=== PATIENT | female | born 1940 | race Caucasian/White ===

== ENCOUNTER 2018-05-31 15:17 | Inpatient (IN) ==
--- NOTE | 2018-05-31 15:47 | XRay Report ---
HISTORY: Sternal pain after a fall FINDINGS: The lungs are clear and well expanded. There is no pneumothorax, pleural effusion or widening of the mediastinum. The aorta is mildly tortuous and there are calcified plaques along the wall. The heart is normal in size and contour. No fracture is identified. However, the sternum cannot be evaluated on an AP projection, due to overlying spine and mediastinal structures. Densely calcified plaques are seen in the axillary and subclavian arteries. There has been no significant change since 09/13/16. IMPRESSION: Normal chest. Nonvisualized sternum Interpreted and Authenticated by: Alli Klein 05/31/18
--- NOTE | 2018-05-31 16:17 | Emergency Department Note ---
Fall HPI - General Chief Complaint: Fall Stated Complaint: fall, hit chest and chin Time Seen by Provider: 05/31/18 15:43 Source: patient, family Mode of arrival: wheelchair - History of Present Illness HPI Narrative: This pleasant 78-year-old female who is in the emergency room accompanied by her daughter Brianna. She reports being dizzy around 9 this morning and fell forward onto her chin, nose and chest. She remembers falling but is uncertain why she did not have her arms out in front. It was unwitnessed. She is ambiguous as to whether she lost consciousness or not. She has been dizzy for this past 1 week. Prior to this her blood pressure medications were being lowered because of also having some dizziness. Her blood pressures remain low. She continues on a water pill. She reports a blood pressure sitting this last week of 119/65. The dizzy episodes only occur when she is standing or walking. Her fall and injury today did cause her upper dentures to be split (which have already been repaired and returned to her!). REVIEW OF SYSTEMS: No chest pain that she describes due to the fall. No palpitations. Pulse at home commonly is 109. Denies cough or shortness of breath. No abdominal pain or nausea. Had some vomiting last week. She has some chronic diarrhea as a form of irritable bowel syndrome for which she takes Imodium to control. Denies dysuria Denies back pain Denies headaches. Has some generalized weakness but no specific lateralizing or extremity focused weakness. Some chronic general anxiety. Some mild depression but not under treatment or specifically a problem according to patient. Patient lives alone. - Related Data Home Medications Medication Instructions Recorded Confirmed Furosemide [Lasix] 20 mg PO DAILY 03/19/16 05/31/18 Levothyroxine [Synthroid] 100 mcg PO DAILY 03/19/16 05/31/18 Lisinopril [Zestril] 40 mg PO DAILY 03/19/16 05/31/18 Nortriptyline [Pamelor] 30 mg PO HS 03/19/16 05/31/18 Omeprazole 20 mg PO DAILY 03/19/16 05/31/18 Pravastatin [Pravachol] 20 mg PO HS 03/19/16 05/31/18 amLODIPine [Norvasc] 10 mg PO HS 03/19/16 05/31/18 Aspirin [Ecotrin] 81 mg PO QDAY 09/13/16 05/31/18 Magnesium Oxide [Magnesium] 400 mg PO QDAY 09/13/16 05/31/18 Calcium Carbonate/Vitamin D3 1 tab PO DAILY 10/07/16 05/31/18 [Calcium 600 + Vit D Tablet] Cholecalciferol (Vitamin D3) 1,000 unit PO DAILY 10/07/16 05/31/18 [Vitamin D3] Hyoscyamine Sulfate [Levsin] 0.125 mg SL Q4HP PRN 10/07/16 05/31/18 LORazepam [Ativan] 0.5 mg PO PRN PRN 10/07/16 05/31/18 [place]-3S/Dha/Epa/Fish Oil [Fish 1 each PO DAILY 10/07/16 05/31/18 Oil [place]-3 Softgel] Sodium Chloride 1 gm PO BID 12/17/16 05/31/18 Previous Rx's Medication Instructions Recorded HYDROcodone/APAP 5/325MG [[place] 1 tab PO Q4HP PRN #30 tab 12/18/16 5-325Mg] Allergies Allergy/AdvReac Type Severity Reaction Status Date / Time iodine Allergy Intermediate Swelling Verified 01/01/17 12:58 Fall PMH - Past Medical History [facility] Narrative: Medical History (Last Updated 05/31/18 @ 16:22 by Adarsh James DO) Osteoporosis (Chronic) Irritable bowel syndrome with diarrhea (Chronic) Hypertension, essential (Acute) Hypothyroidism, acquired (Acute) Anxiety, generalized (Chronic) Cigarette smoker (Chronic) Hypomagnesemia with secondary hypocalcemia (Resolved) Hyponatremia (Resolved) CHF (congestive heart failure) (Resolved) CKD (chronic kidney disease) stage 3, GFR 30-59 ml/min (Chronic) Acute and chronic cholecystitis (Resolved) Cholelithiasis with cholecystitis without obstruction (Resolved) Hip fracture (Resolved) Hypokalemia (Resolved) Polyp of gallbladder (Resolved) Past Surgical History (Last Updated 05/31/18 @ 16:16 by Adarsh James DO) History of renal stent (Chronic) History of hip replacement (Acute) History of laparoscopic cholecystectomy (Acute) History of renal stent (Acute) History of hemiarthroplasty of left hip (Resolved) Medical history: Reports: COPD, coronary artery disease, hypertension, osteoporosis, thyroid disease, other (irritable bowel). Denies: cancer, CHF (denies but is in Active problem list...), DVT, pulmonary embolus Family history: Reports: no significant family history - Social History smoking status: Current every day smoker (1/2 pk/d or less) Alcohol use: Reports: Recent Drug use: Reports: none. Denies: marijuana Physical Exam Limitations: physical limitation General appearance: alert, in no apparent distress Head: normocephalic, other (Rachel has a moderate ecchymosis and mild swelling. Bridge of the nose and beginning of the cartilaginous nose is moderately swollen with mild ecchymosis. No TMJ no tenderness of the mandible.) Eye: Present: normal appearance, EOMI. Absent: scleral icterus, conjunctival injection ENT: normal oropharynx, mucous membranes moist Neck: Present: trachea midline. Absent: lymphadenopathy, thyromegaly Respiratory: Present: other (Scattered coarseness and pop wheezes throughout lung roberts that is mild.). Absent: respiratory distress, wheezes, stridor, accessory muscle use, prolonged expiratory phase Cardiovascular: Present: regular rate, normal rhythm, tachycardia. Absent: systolic murmur, diastolic murmur Abdominal: Present: soft. Absent: distention, tenderness, guarding, rebound, rigidity, organomegaly, mass Extremities: Absent: pedal edema, pretibial edema, calf tenderness Neurological: Present: alert, oriented X3 Psychiatric: Present: normal affect, normal mood Skin: Present: warm, dry, other (Few ecchymotic changes, senile, of her arms.) Course Vital Signs Temperature 98.0 F 05/31/18 15:18 Pulse Rate 110 H 05/31/18 15:18 Respiratory Rate 20 05/31/18 15:18 Blood Pressure 142/70 05/31/18 15:18 Pulse Oximetry (%) 98 05/31/18 15:18 Temperature 98.0 F 05/31/18 15:18 Pulse Rate 118 H 05/31/18 17:45 Respiratory Rate 19 05/31/18 18:16 Blood Pressure 118/75 05/31/18 18:16 Pulse Oximetry (%) 97 05/31/18 17:45 Fall - [facility] Narrative Medical decision making narrative: 3:53 PM - syncopal episode with facial trauma to the nose and chin area. Because of it was unwitnessed and uncertain exact circumstances will be doing labs, CT of the face, CT of the neck, CT of the brain. - Lab Data Lab results reviewed: Yes I reviewed the patient's lab results. Result diagrams: 05/31/18 16:34 05/31/18 16:34 Lab Results 05/31/18 05/31/18 Range/Units 16:34 16:34 WBC 10.2 (4.5-11.0) K/mcL RBC 2.70 L (4.00-5.20) M/mcL Hgb 8.6 L (12.0-15.0) g/dL Hct 26.1 L (36.0-48.0) % MCV 96.7 (80.0-100.0) fL MCH 31.9 (26.0-34.0) pg MCHC 33.0 (31.0-36.0) g/dL RDW 12.3 (11.5-14.5) % Plt Count 217 (140-440) K/mcL MPV 9.0 (7.4-10.4) fL Gran % 90.1 H (38.0-78.0) % Lymph % (Auto) 5.8 L (15.5-49.0) % [place] % (Auto) 4.1 (1.0-12.0) % Eos % (Auto) 0 (0.0-7.0) % Baso % (Auto) 0 (0.0-2.0) % Gran # 9.2 H (1.8-8.0) K/mcL Lymph # (Auto) 0.6 L (1.5-4.8) K/mcL [place] # (Auto) 0.4 (0.1-0.9) K/mcL Eos # (Auto) 0 (0.0-0.7) K/mcL Baso # (Auto) 0 (0.0-0.3) K/mcL Sodium 128 L (133-145) mmol/L Potassium 4.6 (3.3-5.1) mmol/L Chloride 90 L (96-108) mmol/L Carbon Dioxide 24 (22-30) mmol/L Anion Gap 14.0 (8-16) BUN 46 H (8-23) mg/dl Creatinine 2.4 H (0.6-1.1) mg/dl GFR Calculation 19 Glucose 139 H (70-105) mg/dL Calcium 7.2 L (8.6-10.4) mg/dl Magnesium 0.7 L* (1.6-2.5) mg/dL Total Bilirubin 0.8 (0.0-1.0) mg/dL AST 44 H (0-37) U/l ALT 19 (0-40) U/l Alkaline Phosphatase 146 H (39-117) U/L Total Protein 6.5 (5.9-8.4) gm/dL Albumin 3.0 L (3.2-5.2) gm/dL Globulin 3.5 (2.2-3.7) gm/dL Albumin/Globulin Ratio 0.9 L (1.0-2.3) - Radiology Data Radiology results reviewed: Yes I reviewed the patient's radiology results. - EKG Data EKG results narrative: No acute coronary syndrome findings. There was mild flattening of T waves or decrease in height in the lower limb leads with a tachycardia but otherwise similar to previous. This ECG will be read by a financial systems administrator. Disposition Pt seen by MEDICAL OFFICE PROFESSIONAL INSTRUCTOR/PA only: No Clinical Impression: Syncope and collapse, Hypocalcemia, Hyponatremia Contusion of face Qualifiers: Encounter type: initial encounter Qualified Code(s): S00.83XA - Contusion of other part of head, initial encounter Acute renal failure (ARF) Qualifiers: Acute renal failure type: unspecified Qualified Code(s): N17.9 - Acute kidney failure, unspecified Contusion, chest wall Qualifiers: Encounter type: initial encounter Laterality: unspecified laterality Qualified Code(s): S20.219A - Contusion of unspecified front wall of thorax, initial encounter Summary: Patient was found to have contusions to her face from her syncopal episode and fall. It was reported that she is on blood thinners but this was not found on her report from her pharmacy and there was not any other knowledge of being on them. She has a significant change in her hemoglobin and hematocrit with her hemoglobin being down to 8.6 and normal for her being above 10.5. Her creatinine also elevated to 2.4 with normal being under 1.3. Her magnesium is 0.7 which is significantly low as well as a calcium quite low at 7.1. Because of these factors I convinced patient to finally stay for additional treatment. I spoke with Dr. Butler hospitalist, who kindly accepts her care for inpatient following and treatment. Disposition: Home, Self-Care Condition: Serious Referrals: Ricky Trevino MD [Primary Care Provider] -
--- NOTE | 2018-05-31 16:38 | Cat Scan Report ---
History: Fell with head injury TECHNIQUE: The brain was imaged without contrast at 2.5 mm intervals. Radiation exposure was limited using dose reduction technology. FINDINGS: No skull fracture is present. There is no intracranial hemorrhage or cerebral edema. There are patchy areas of decreased attenuation in the centrum semiovale within the frontal and parietal lobes bilaterally. This has progressed since the prior brain MRI done on 07/10/07. No acute infarct is detected. There is no mass effect. The ventricles are normal in size. Densely calcified plaques are present in the cavernous portions of both internal carotids and there is moderate plaque formation in the intracranial portions of both vertebral arteries. IMPRESSION: No evidence of acute head injury Mild Age-related degenerative changes which have progressed since 2007 Dr. James was called with the results Interpreted and Authenticated by: Alli Klein 05/31/18
--- NOTE | 2018-05-31 16:42 | Cat Scan Report ---
CLINICAL INFORMATION: Fell and landed on chin COMPARISON: None. TECHNIQUE: 2.5 millimeter axial slices were obtained through the facial region and 1.25 millimeter reconstructions were processed. 2.5 millimeter sagittal and axial reformations were then obtained and exam was reviewed in bone and soft tissue window/algorithm. Radiation exposure was limited using dose reduction technology. FINDINGS: No facial fracture is present. There is moderate arthritis in the right temporal mandibular joint with loss of articular cartilage resulting in joint space narrowing and there are also small anterior spurs. The left TMJ is normal. Patient is edentulous. Mild mucosal thickening is seen along the wall of the maxillary sinuses bilaterally due to mild sinusitis. There are no air-fluid levels within the sinuses. No facial hematoma is seen. 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 James was called with the results Interpreted and Authenticated by: Alli Klein 05/31/18
--- NOTE | 2018-05-31 16:46 | Cat Scan Report ---
History: Fell with neck injury TECHNIQUE: The neck was imaged without contrast from the skull base through the thoracic inlet. Sagittal and coronal reformats are created. Radiation exposure was limited using dose reduction technology. FINDINGS: There is a mild levoscoliotic curvature in the upper cervical spine. There is no fracture or destructive bone lesion. 2 mm grade 1 spondylolisthesis is present at C3-4 due to arthritis in the facets. There is severe disc space narrowing at C5-C6 and C6-7. 3 mm spondylolisthesis is seen at C7-T1. There is stenosis of the neural foramina bilaterally at several levels due to spurring of the uncinate processes and arthritis in the facet joints. The greatest narrowing is bilaterally at C3-4 and the right side at C4-5.. IMPRESSION: No fracture Moderate cervical spondylosis at multiple levels Dr. James was called with the results Interpreted and Authenticated by: Alli Klein 05/31/18
[2018-05-31 16:59] LABS: Basophils # (Auto) 0 K/mcL (0.0-0.3); Basophils % (Auto) 0 % (0.0-2.0); Eosinophils # (Auto) 0 K/mcL (0.0-0.7); Eosinophils % (Auto) 0 % (0.0-7.0); Granulocytes % (Auto) 90.1 % (38.0-78.0); Lymphocytes # (Auto) 0.6 K/mcL (1.5-4.8); Lymphocytes % (Auto) 5.8 % (15.5-49.0); Mean Cell Volume 96.7 fL (80.0-100.0); Monocytes # (Auto) 0.4 K/mcL (0.1-0.9); Monocytes % (Auto) 4.1 % (1.0-12.0); Platelet Count 217 K/mcL (140-440); Red Cell Distribution Width 12.3 % (11.5-14.5)
[2018-05-31 17:21] LABS: ALT/SGPT 19 U/l (0-40); Albumin/Globulin Ratio 0.9 (1.0-2.3); Alkaline Phosphatase 146 U/L (39-117); Blood Urea Nitrogen 46 mg/dl (8-23)
[2018-05-31] MEDS ORDERED: MAGNESIUM SULFATE 2 GM/50 ML BAG IV ONE ×3 (18:14→19:44)
[2018-05-31 19:10] LABS: Haptoglobin 123 mg/dl (30-200)
[2018-05-31 19:18] LABS: Vitamin B12 447.9 pg/ml (232-1245)
[2018-05-31] MEDS ORDERED: NALOXONE HCL 0.4 MG/ML VIAL IV PRN (19:44)
[2018-05-31] MEDS ORDERED: ACETAMINOPHEN 325 MG TABLET PO PRN (19:44)
[2018-05-31] MEDS ORDERED: HYOSCYAMINE SULFATE 0.125 MG TABLET SL PRN (19:44)
[2018-05-31] MEDS ORDERED: ONDANSETRON 4 MG/2 ML VIAL IV PRN (19:44)
[2018-05-31 19:48] LABS: Iron 102 mcg/dl (37-145); Transferrin % Saturation 83 % (15-50); Unsaturated Iron Binding < 20 mcg/dL (112-346)
[2018-05-31] MEDS: SODIUM CHLORIDE 1 GM TABLET PO SCH (20:23)
[2018-05-31 20:26] LABS: Appearance,Urine CLOUDY; Bacteria,Urine FEW /hpf (0); Bilirubin,Urine NEG (NEG); Color,Urine YELLOW; Glucose,Urine (UA) NEGATIVE (NEG); Leukocyte Esterase,Urine 500 /uL (NEG); Mucus,Urine FEW /hpf (0); Protein,Urine 100 mg/dL (NEG); Specific Gravity,Urine 1.011 (1.000-1.035); Urine Amorphous Crystals FEW /hpf (0); Urine Blood 0.03 mg/dL (<0.03); Urine Hyaline Cast 3 /lpf (0-2); Urine RBC 17 /hpf (0-1); Urine Squamous Epithelial Cell 12 /hpf (0-4); Urine WBC > 182 /hpf (0-4); Urobilinogen,Urine NEG (NEG)
[2018-05-31 20:37] LABS: Calcium,Urine Random 1.8 mg/dl
[2018-05-31 20:47] LABS: Creatinine,Urine Random 71.5 mg/dl
[2018-05-31] MEDS ORDERED: amLODIPine 10 MG TABLET PO SCH (21:00)
[2018-05-31] MEDS ORDERED: PRAVASTATIN 40 MG TABLET PO SCH (21:00)
[2018-05-31] MEDS ORDERED: HEPARIN 5,000 UNIT/ML VIAL SQ SCH (21:00)
[2018-05-31] MEDS ORDERED: NICOTINE 7 MG PATCH TOPICAL ONE (21:04)
--- NOTE | 2018-05-31 22:16 | Internal Med History&Physical ---
Medical - H&P: HPI Patient information: Note initiated : 05/31/18 at 10:14 pm Service Date, if different from initiated Date: [] Patient: Libby Candelaria a 78 y/o F admitted on 05/31/18 for fall, hit chest and chin. Chief Complaint: [] History of present illness: Ms. Candelaria is a 78 year old F who lives by herself, history of heavy alcohol use, smoker presents to the hospital for evaluation of fall. The patient notes that she has not been feeling well over the last 2 weeks, she has been getting dizzy whenever she stands up. She has seen a primary care provider for same who had cut back on her blood pressure medications. Today she stood up from sitting position and walked a few steps and then fell forward face down. She presented to the hospital for further evaluation because of this. She injured her lips a nd her dentures. The patient denies any headache loss of consciousness denies any palpitations chest pain shortness of breath nausea or belly pain vomiting or constipation. She admits to having chronic diarrhea for the last few years. The patient notes that she has not been eating and drinking well for the last few weeks notes that dizziness prevents her from doing much, she also lives by herself and does not feel like cooking for herself. The patient takes a magnesium supplement according to her. The patient has been admitted in the past with a diagnosis of hypophosphatemia hypokalemia and hypomagnesemia. On presentation to the emergency room patient was afebrile, tachycardic with heart rate 110-120, stable blood pressure maintaining oxygen saturation more than 90% on room air. Labs showed WBC count of 10.2 hemoglobin 8.6, MCV 96 platelets 217 sodium 128 potassium 4.6 bicarbonate 24 creatinine 2.4 glucose 139, calcium 7.2 albumin 3.0 magnesium 0.7. Reticulocyte count is 1.0, haptoglobin 123, iron 102, TIBC 122, ferritin 1091, iron saturation 83%, B12 level is 447, folic acid 5.3 Given patient has critically low magnesium, symptomatic orthostatic dizziness, fall, acute renal failure patient is being admitted to the hospital for further management All systems: reviewed and no additional remarkable complaints except as stated (As per HPI rest negative) Medical - H&P: PMH Medical history: Medical History (Last Updated 05/31/18 @ 16:22 by Adarsh James DO) Osteoporosis (Chronic) Irritable bowel syndrome with diarrhea (Chronic) Hypertension, essential (Acute) Hypothyroidism, acquired (Acute) Anxiety, generalized (Chronic) Cigarette smoker (Chronic) Hypomagnesemia with secondary hypocalcemia (Resolved) Hyponatremia (Resolved) CHF (congestive heart failure) (Resolved) CKD (chronic kidney disease) stage 3, GFR 30-59 ml/min (Chronic) Acute and chronic cholecystitis (Resolved) Cholelithiasis with cholecystitis without obstruction (Resolved) Hip fracture (Resolved) Hypokalemia (Resolved) Polyp of gallbladder (Resolved) Surgical history: Past Surgical History (Last Updated 05/31/18 @ 16:16 by Adarsh James DO) History of renal stent (Chronic) History of hip replacement (Acute) History of laparoscopic cholecystectomy (Acute) History of renal stent (Acute) History of hemiarthroplasty of left hip (Resolved) Family history: reviewed and not pertinent Medical - H&P: Meds Home Medications Medication Instructions Recorded Confirmed Type Furosemide [Lasix] 20 mg PO DAILY 03/19/16 05/31/18 History Levothyroxine [Synthroid] 100 mcg PO DAILY 03/19/16 05/31/18 History Lisinopril [Zestril] 40 mg PO DAILY 03/19/16 05/31/18 History Nortriptyline [Pamelor] 30 mg PO HS 03/19/16 05/31/18 History Omeprazole 20 mg PO DAILY 03/19/16 05/31/18 History Pravastatin [Pravachol] 20 mg PO HS 03/19/16 05/31/18 History amLODIPine [Norvasc] 10 mg PO HS 03/19/16 05/31/18 History Aspirin [Ecotrin] 81 mg PO QDAY 09/13/16 05/31/18 History Magnesium Oxide [Magnesium] 400 mg PO QDAY 09/13/16 05/31/18 History Calcium Carbonate/Vitamin D3 1 tab PO DAILY 10/07/16 05/31/18 History [Calcium 600 + Vit D Tablet] Cholecalciferol (Vitamin D3) 1,000 unit PO DAILY 10/07/16 05/31/18 History [Vitamin D3] Hyoscyamine Sulfate [Levsin] 0.125 mg SL Q4HP PRN 10/07/16 05/31/18 History LORazepam [Ativan] 0.5 mg PO PRN PRN 10/07/16 05/31/18 History [place]-3S/Dha/Epa/Fish Oil [Fish 1 each PO DAILY 10/07/16 05/31/18 History Oil [place]-3 Softgel] Sodium Chloride 1 gm PO BID 12/17/16 05/31/18 History HYDROcodone/APAP 5/325MG [[place] 1 tab PO Q4HP PRN #30 tab 12/18/16 05/31/18 Rx 5-325Mg] Allergies Allergy/AdvReac Type Severity Reaction Status Date / Time iodine Allergy Intermediate Swelling Verified 01/01/17 12:58 Medical - H&P: Exam - Constitutional Vitals: Temp Pulse Resp BP Pulse Ox 98.0 F 121 H 21 104/68 92 05/31/18 19:47 05/31/18 19:47 05/31/18 19:47 05/31/18 19:47 05/31/18 19:47 Exam: GENERAL: The patient is a well-developed, well-nourished in no apparent distress. Is alert and oriented x3. VITAL SIGNS: Reviewed and as noted elsewhere. HEENT: Head is normocephalic and atraumatic. Extraocular muscles are intact. Pupils are equal, round, and reactive to light. Nares appeared normal. Mouth appears any without lesions. Mucous membranes are moist. Significant lower lip laceration noted. NECK: Normal to inspection, Supple, No lymphadenopathy or thyromegaly. LUNGS: Air entry equal on both sides, no wheezing, crackles or rhonchi noted. No accessory muscles of respiration HEART: Regular tachycardic and rhythm normal, S1 and S2 heard, no Gallop, S3 or Rub Noted, No Gross murmur heard. ABDOMEN: Soft, nontender, and nondistended. Positive bowel sounds. No hepatosplenomegaly was noted. EXTREMITIES: No cyanosis, clubbing, rash, lesions or edema. NEUROLOGIC: Cranial nerves II through XII are grossly intact. Motor and Sensory System Grossly Intact PSYCHIATRIC: Normal affect, Normal Mood. Appropriate Behavior. SKIN: decub ulcer on back. No jaundice, No rash noted. Medical - H&P: Reslt - Labs CBC & Chem 7: 05/31/18 16:34 05/31/18 16:34 Labs: Short CBC 05/31/18 Range/Units 16:34 WBC 10.2 (4.5-11.0) K/mcL Hgb 8.6 L (12.0-15.0) g/dL Hct 26.1 L (36.0-48.0) % Plt Count 217 (140-440) K/mcL BMP 05/31/18 16:34 Sodium 128 L Potassium 4.6 Chloride 90 L Carbon Dioxide 24 BUN 46 H Creatinine 2.4 H Glucose 139 H Calcium 7.2 L Liver Function 05/31/18 Range/Units 16:34 Total Bilirubin 0.8 (0.0-1.0) mg/dL AST 44 H (0-37) U/l ALT 19 (0-40) U/l Alkaline Phosphatase 146 H (39-117) U/L Albumin 3.0 L (3.2-5.2) gm/dL Urine 05/31/18 Range/Units 19:55 Urine Color Yellow Urine Appearance Cloudy Urine pH 8.0 (5.0-9.0) Ur Specific [place] 1.011 (1.000-1.035) Urine Protein 100 A (NEG) mg/dL Urine Glucose (UA) Negative (NEG) mg/dL Medical - H&P: A/P - Narrative A/P Narrative: A/P Severe Hypomagnesemia Orthostatic Dizziness Acute renal failure tobacco abuse malnutrition Anemia Hyponatremia tachycardia Chr Diarrhea/ IBS CKD Hypertension Hypothyroidism Plan Admit to [facility] status IV magnesium and oral mag replacement (patient's hypomagnesemia seems multifac torial, chronic diarrhea decreased oral intake as well as alcohol abuse contributing) monitor levels, will need a long time to replenish levels IV fluids for renal dysfunction given tachycardia, and borderline low oxyen sats, check d dmier, if elevated use therapeutic dose of anticoagulation till we can safely r/o PE Check TSH hold bp meds resume other home meds Educated at length need from etoh cessation, Anemia workup shows elevated ferritin and iron saturation, due to alcohol use? Check fecal occult blood studies. Start replacement with B12 and folic acid for now. Elevated ferritin, iron sat likely from etoh. DVT hep sq Social History - Tobacco smoking status: Current every day smoker (1/2 pk/d or less) - Alcohol alcohol intake frequency: 2+ drinks per day
[2018-05-31] MEDS: 0.9 % SODIUM CHLORIDE 1,000 ML IV SCH (22:54)
[2018-05-31] MEDS: NORTRIPTYLINE 10 MG CAPSULE PO SCH (22:54)
[2018-05-31] MEDS: FOLIC ACID/VITAMIN B COMP W-C 1 TAB TABLET PO SCH (22:55)
[2018-05-31] MEDS: THIAMINE 100 MG TABLET PO SCH (22:55)
[2018-05-31] MEDS: 0.9 % SODIUM CHLORIDE 10 ML SYRINGE IV SCH (22:55)
[2018-05-31] MEDS: SIMVASTATIN 10 MG TABLET PO SCH (22:55)
[2018-05-31] MEDS: HYDROcodone/APAP 5/325MG TABLET PO PRN (23:29)
[2018-06-01] MEDS: 0.9 % SODIUM CHLORIDE 1,000 ML IV SCH ×5 (05:30→22:45)
[2018-06-01] MEDS: 0.9 % SODIUM CHLORIDE 10 ML SYRINGE IV SCH ×3 (05:40→21:00)
[2018-06-01 06:37] LABS: Basophils # (Auto) 0 K/mcL (0.0-0.3); Basophils % (Auto) 0.2 % (0.0-2.0); Eosinophils # (Auto) 0 K/mcL (0.0-0.7); Eosinophils % (Auto) 0 % (0.0-7.0); Granulocytes % (Auto) 81.8 % (38.0-78.0); Lymphocytes # (Auto) 1.1 K/mcL (1.5-4.8); Lymphocytes % (Auto) 12.1 % (15.5-49.0); Mean Cell Volume 97.3 fL (80.0-100.0); Mean Corpuscular HGB Conc 32.7 g/dL (31.0-36.0); Monocytes # (Auto) 0.6 K/mcL (0.1-0.9); Monocytes % (Auto) 5.9 % (1.0-12.0); Platelet Count 181 K/mcL (140-440); RBC 2.28 M/mcL (4.00-5.20); Red Cell Distribution Width 12.3 % (11.5-14.5)
[2018-06-01 07:05] LABS: ALT/SGPT 15 U/l (0-40); Albumin 2.5 gm/dL (3.2-5.2); Albumin/Globulin Ratio 0.9 (1.0-2.3); Alkaline Phosphatase 121 U/L (39-117); Bilirubin,Direct 0.3 mg/dL (0.0-0.3); Blood Urea Nitrogen 47 mg/dl (8-23); Gamma Glutamyl Transpeptidase 72 U/L (5-36); Uric Acid 6.9 mg/dL (2.5-8.0)
[2018-06-01] MEDS ORDERED: MAGNESIUM SULFATE 2 GM/50 ML BAG IV ONE (07:36)
[2018-06-01] MEDS: MAGNESIUM OXIDE 400 MG TABLET PO SCH ×2 (07:46→16:45)
[2018-06-01] MEDS: LEVOTHYROXINE 100 MCG TABLET PO SCH (07:46)
[2018-06-01 08:22] LABS: Free T4 (Free Thyroxine) 1.15 ng/dl (0.7-1.7)
[2018-06-01] MEDS: ASPIRIN 81 MG TAB.CHEW PO SCH (08:23)
[2018-06-01] MEDS: SODIUM CHLORIDE 1 GM TABLET PO SCH ×2 (08:23→21:00)
[2018-06-01] MEDS: VITAMIN D3 1,000 UNIT TABLET PO SCH (08:24)
[2018-06-01] MEDS ORDERED: FISH OIL 1,000 MG CAPSULE PO SCH (09:00)
[2018-06-01] MEDS ORDERED: CALCIUM W/VIT D3 500 MG TABLET PO SCH (09:00)
[2018-06-01] MEDS ORDERED: ENOXAPARIN 100 MG/ML SYRINGE SQ SCH (09:00)
[2018-06-01] MEDS ORDERED: 0.9 % SODIUM CHLORIDE 1,000 ML IV ONE (09:28)
[2018-06-01] MEDS: NICOTINE 7 MG PATCH TOPICAL SCH (09:52)
[2018-06-01] MEDS: FISH OIL 1,000 MG CAPSULE PO SCH (09:52)
[2018-06-01] MEDS: CALCIUM W/VIT D3 500 MG TABLET PO SCH (09:52)
[2018-06-01] MEDS ORDERED: PNEUMOCOCCAL 23-VAL P-SAC VAC 0.5 ML SYRINGE IM ONE (10:00)
--- NOTE | 2018-06-01 10:05 | Nephrology Consult Note ---
History of Present Illness - Reason for Consult Patient information: Note initiated : 06/01/18 at 10:03 am Libby Candelaria is a 78-year-old female admitted on 05/31/18 after a fall at home. Consult date: 06/01/18 acute renal failure, chronic renal failure, hyponatremia Requesting physician: Pricila Butler - Chief Complaint Weakness - History of Present Illness Libby Candelaria is a 78-year-old female with hypertension, hyperlipidemia, hypothyroidism, chronic kidney disease stage 3, left renal artery stenosis s/p stent, chronic hyponatremia, admitted on 05/31/18 after a fall at home. She has been dizzy for several days. She has been on Sodium chloride 1 gram twice daily, Furosemide 20 mg daily and Lisinopril 40 mg daily and Amlodipine 10 mg daily at home. Review of Systems Constitutional: lethargy, weakness Nose, mouth and throat: no nasal congestion, no sore throat Cardiovascular: no chest pain, no palpatations Respiratory: no cough, no wheezing Gastrointestinal: no abdominal pain, no diarrhea, no nausea Genitourinary: no dysuria, no hematuria Musculoskeletal: no joint swelling, no neck pain Integumentary: no rash, no wounds Neurological: no confusion, no focal weakness Psychiatric: no anxiety, no panic attacks Endocrine: no cold intolerance, no heat intolerance Hematologic/Lymphatic: no easy bleeding, no easy bruising Allergic/Immunologic: no tongue swelling, no uticaria Past History Past medical history: Medical History (Last Updated 05/31/18 @ 16:22 by Adarhs James DO) Osteoporosis (Chronic) Irritable bowel syndrome with diarrhea (Chronic) Hypertension, essential (Acute) Hypothyroidism, acquired (Acute) Anxiety, generalized (Chronic) Cigarette smoker (Chronic) Hypomagnesemia with secondary hypocalcemia (Resolved) Hyponatremia (Resolved) CHF (congestive heart failure) (Resolved) CKD (chronic kidney disease) stage 3, GFR 30-59 ml/min (Chronic) Acute and chronic cholecystitis (Resolved) Cholelithiasis with cholecystitis without obstruction (Resolved) Hip fracture (Resolved) Hypokalemia (Resolved) Polyp of gallbladder (Resolved) Past surgical history: Past Surgical History (Last Updated 05/31/18 @ 16:16 by Adarsh James DO) History of renal stent (Chronic) History of hip replacement (Acute) History of laparoscopic cholecystectomy (Acute) History of renal stent (Acute) History of hemiarthroplasty of left hip (Resolved) Past family history: No history of kidney disease in family members. Past social history: She lives alone but has a life alert necklace. She is a full code at designated either her son, Mike Garay, or her daughter, Brianna Tesfaye, as her surrogate medical decision makers. She normally walks with a walker. She has a [id number] smoking history and continues to smoke several cigarettes a day. She drinks least 2 shots of vodka nightly. She denies recreational drug use. Medications and Allergies Home Medications Medication Instructions Recorded Confirmed Type Furosemide [Lasix] 20 mg PO DAILY 03/19/16 05/31/18 History Levothyroxine [Synthroid] 100 mcg PO DAILY 03/19/16 05/31/18 History Lisinopril [Zestril] 40 mg PO DAILY 03/19/16 05/31/18 History Nortriptyline [Pamelor] 30 mg PO HS 03/19/16 05/31/18 History Omeprazole 20 mg PO DAILY 03/19/16 05/31/18 History Pravastatin [Pravachol] 20 mg PO HS 03/19/16 05/31/18 History amLODIPine [Norvasc] 10 mg PO HS 03/19/16 05/31/18 History Aspirin [Ecotrin] 81 mg PO QDAY 09/13/16 05/31/18 History Magnesium Oxide [Magnesium] 400 mg PO QDAY 09/13/16 05/31/18 History Calcium Carbonate/Vitamin D3 1 tab PO DAILY 10/07/16 05/31/18 History [Calcium 600 + Vit D Tablet] Cholecalciferol (Vitamin D3) 1,000 unit PO DAILY 10/07/16 05/31/18 History [Vitamin D3] Hyoscyamine Sulfate [Levsin] 0.125 mg SL Q4HP PRN 10/07/16 05/31/18 History LORazepam [Ativan] 0.5 mg PO PRN PRN 10/07/16 05/31/18 History [place]-3S/Dha/Epa/Fish Oil [Fish 1 each PO DAILY 10/07/16 05/31/18 History Oil [place]-3 Softgel] Sodium Chloride 1 gm PO BID 12/17/16 05/31/18 History HYDROcodone/APAP 5/325MG [[place] 1 tab PO Q4HP PRN #30 tab 12/18/16 05/31/18 Rx 5-325Mg] Allergies Allergy/AdvReac Type Severity Reaction Status Date / Time iodine Allergy Intermediate Swelling Verified 01/01/17 12:58 Exam - Vital Signs Vital signs: Temp Pulse Resp BP Pulse Ox 99.1 F H 104 H 20 92/57 98 06/01/18 08:00 06/01/18 08:00 06/01/18 08:00 06/01/18 08:00 06/01/18 08:00 - General Appearance General appearance: appears started age, fatigue EENT: mucous membranes dry Neck: supple Respiratory: clear Cardiology: no edema Gastrointestinal: no tenderness Integumentary: no rash Neurologic: no focal deficit, alert and oriented x3 Musculoskeletal: no deformities Psychiatric: mood/affect appropriate, cooperative Results - Lab Results 06/01/18 04:30 06/01/18 04:30 Most recent lab results Calcium 7.2 mg/dl (8.6-10.4) L 06/01/18 04:30 Phosphorus 3.8 mg/dL (2.7-4.5) 06/01/18 04:30 Magnesium 1.4 mg/dL (1.6-2.5) L 06/01/18 04:30 Assessment and Plan (1) Acute on chronic renal failure Libby Candelaria is a 78-year-old female with hypertension, hyperlipidemia, hypothyroidism, chronic kidney disease stage 3, left renal artery stenosis s/p stent, chronic hyponatremia, admitted on 05/31/18 after a fall at home. She has been dizzy for several days. She has been on Sodium chloride 1 gram twice daily, Furosemide 20 mg daily and Lisinopril 40 mg daily and Amlodipine 10 mg daily at home. Acute kidney injury on chronic kidney disease stage 3 with hyponatremia and hypomagnesemia, present on arrival. She has been on Sodium chloride 1 gram twice daily, Furosemide 20 mg daily and Lisinopril 40 mg daily and Amlodipine 10 mg daily at home. Most likely etiology is progressive dehydration which may lead to acute tubular necrosis. There is no recent history of IV contrast administration or NSAID use. Work up: Urinalysis on 05/31/18: Yellow, Cloudy, pH 8.0, SG 1.011, protein 100, occult blood 0.03, leukocyte esterase 500. US Renal on 06/01/18: Multiple cysts in both kidneys which remain stable. Markedly diminished urine output from both kidneys. This may be due to acute kidney injury. Trace amount of free fluid adjacent to the capsule in both kidneys which is nonspecific but might be related to the recent injury. Progress: Urine output: 200 ml reported in the past 12 hours. Creatinine decreased from 2.4 to 2.3 in the past 12 hours. Hyponatremia. Hypomagnesemia. Plan: No acute hemodialysis need. Avoid NSAIDs, nephrotoxic medications and IV contrast. Monitor BMP and urine output. Status: Acute Priority: High Qualifiers: Acute renal failure type: with acute tubular necrosis Chronic kidney disease stage: stage 3 (moderate) Qualified Code(s): N17.0 - Acute kidney failure with tubular necrosis; N18.3 - Chronic kidney disease, stage 3 (moderate) (2) Hyponatremia Please see above Status: Chronic Priority: Medium (3) Hypomagnesemia Please see above Status: Acute Priority: Medium
--- NOTE | 2018-06-01 10:27 | Ultrasound Report ---
History: Fell one day ago, acute kidney injury, unable to void since the fall and follow-up renal cysts FINDINGS: The right kidney measures 4.6 x 4.8 x 10.4 cm and the left measures 4.7 x 5.1 x 7.9 cm. There are multiple cysts in both kidneys. The largest is located superiorly in the left kidney and measures 2.7 x 2.9 cm. The largest cyst in the right kidney is located inferiorly and laterally and measures 1.7 x 1.9 cm. The cysts have not changed since prior ultrasound done on 09/16/16. No solid mass is developed in either kidney. There is no evidence of a calculus or hydronephrosis. No laceration of the kidney is present following recent injury. There is a trace amount of fluid adjacent to the capsule of both kidneys. Similar finding is seen around the right kidney and the prior ultrasound. Doppler showed no flow of urine through either ureter into the bladder during the time of the examination. The bladder is partially distended but has trabeculated wall. It contains 243 cc of urine. The wall is 1.9 mm in thickness. No mass or hematoma are seen within the bladder. No free fluid is present deep in the pelvis. IMPRESSION: Multiple cysts in both kidneys which remain stable Markedly diminished urine output from both kidneys. This may be due to acute kidney injury Trace amount of free fluid adjacent to the capsule in both kidneys which is nonspecific but might be related to the recent injury. Interpreted and Authenticated by: Alli Klein 06/01/18
--- NOTE | 2018-06-01 15:44 | Internal Med Progress Note ---
Medical - PN: Subj Patient information: Note initiated : 06/01/18 at 3:40 pm Service Date, if different from initiated Date: [] Patient: Libby Candelaria a 78 y/o F admitted on 05/31/18 for fall, hit chest and chin. Chief Complaint: [] Interval history: Ms. Candelaria is a 78 year old F who lives by herself, history of heavy alcohol use, smoker presents to the hospital for evaluation of fall. The patient notes that she has not been feeling well over the last 2 weeks, she has been getting dizzy whenever she stands up. She has seen a primary care provider for same who had cut back on her blood pressure medications. Today she stood up from sitting position and walked a few steps and then fell forward face down. She presented to the hospital for further evaluation because of this. She injured her lips and her dentures. The patient denies any headache loss of consciousness denies any palpitations chest pain shortness of breath nausea or belly pain vomiting or constipation. She admits to having chronic diarrhea for the last few years. The patient notes that she has not been eating and drinking well for the last few weeks notes that dizziness prevents her from doing much, she also lives by herself and does not feel like cooking for herself. The patient takes a magnesium supplement according to her. The patient has been admitted in the past with a diagnosis of hypophosphatemia hypokalemia and hypomagnesemia. On presentation to the emergency room patient was afebrile, tachycardic with heart rate 110-120, stable blood pressure maintaining oxygen saturation more than 90% on room air. Labs showed WBC count of 10.2 hemoglobin 8.6, MCV 96 platelets 217 sodium 128 potassium 4.6 bicarbonate 24 creatinine 2.4 glucose 139, calcium 7.2 albumin 3.0 magnesium 0.7. Reticulocyte count is 1.0, haptoglobin 123, iron 102, TIBC 122, ferritin 1091, iron saturation 83%, B12 level is 447, folic acid 5.3 Given patient has critically low magnesium, symptomatic orthostatic dizziness, fall, acute renal failure patient is being admitted to the hospital for further management 06/01 Patient seen and examined, no acute overnight events. Patient doing well, magnesium still low, continue oral and IV replacement. Patient has not had any bowel movements yet. Hemoglobin trending down as expected after IV fluids. I would expect the patient would likely need blood transfusion tomorrow. Workup for anemia is negative so far. Pt renal function did not improve significantly, bp on the lower end, and pt not making much urine, nephrology consulted. Pertinent ROS: Denies headache, dizziness Denies chest pain, palpitations (chest pain at site of bruise present) Denies cough or shortness of breath Denies abdominal pain, nausea or vomiting. - Constitutional Vitals: Vital Signs Temp Pulse Resp BP Pulse Ox 97.6 F 105 H 21 95/56 90 06/01/18 12:00 06/01/18 12:00 06/01/18 12:00 06/01/18 12:00 06/01/18 12:00 Period Temp Pulse Resp BP Sys/Marques Pulse Ox Last 24 Hr 97.6 F-99.6 F 104-124 13-23 84-168/31-101 82-100 Intake and Output 06/01/18 06/01/18 06/01/18 05:59 13:59 21:59 Intake Total 1025 1883 Balance 1025 1883 Weight 104 lb Patient Weight 06/02/18 05:59 Weight 104 lb Intake & Output: Intake & Output 06/01/18 06/01/18 06/01/18 05:59 13:59 21:59 Intake Total 1025 1883 Balance 1025 1883 Weight 104 lb Intake: IV 1025 1833 Sodium Chloride 0.9% 1,000 ml @ 1025 1783 150 mls/hr IV .Q6H40M [facility] Rx#: [id number] Oral 50 Other: Meal Lunch Percent of Meal Consumed 35% Feeding Ability Assist with Tray Set Up Exam: Constitutional; Afebrile, cooperative, alert, not in distress. Eyes- No icterus, , No periorbital swelling Ears- Ext ear normal, hearing normal to conversation. Neck- Midline trachea, supple Respiratory system: Air Entry equal on both sides, No crackles or wheezing, no rhonchi. CVS- Rate rhythm regular, S1,S2 heard, no gallop, no rub. Abdomen- Soft nontender abdomen, no organomegaly, no tenderness, no guarding or rigidity, RUBBER THREAD SPOOLER- AOOx3, moving all extremities, no gross focal deficit noted. Medical - PN: Obj Da - Labs CBC & Chem 7: 06/01/18 04:30 06/01/18 04:30 Labs: Abnormal Lab Results 06/01/18 06/01/18 06/01/18 04:30 04:30 04:30 RBC Hgb Hct Gran % Lymph % (Auto) Gran # Lymph # (Auto) D-Dimer Sodium 132 L Chloride 94 L BUN 47 H Creatinine 2.3 H Glucose 122 H Calcium 7.2 L Magnesium 1.4 L TIBC Unsat Iron Binding Transferrin % Sat Ferritin GGT 72 H AST 42 H Alkaline Phosphatase 121 H Lactate Dehydrogenase 255 H Total Protein 5.4 L Albumin 2.5 L Albumin/Globulin Ratio 0.9 L TSH 0.04 L Free T3 pg/mL 1.8 L Urine Protein Urine Occult Blood Ur Leukocyte Esterase Urine RBC Urine WBC Ur Squamous Epith Cells Amorphous Crystals Urine Bacteria Hyaline Casts 06/01/18 05/31/18 05/31/18 04:30 19:55 16:34 RBC 2.28 L Hgb 7.3 L Hct 22.2 L Gran % 81.8 H Lymph % (Auto) 12.1 L Gran # Lymph # (Auto) 1.1 L D-Dimer 1.59 H Sodium Chloride BUN Creatinine Glucose Calcium Magnesium TIBC Unsat Iron Binding Transferrin % Sat Ferritin GGT AST Alkaline Phosphatase Lactate Dehydrogenase Total Protein Albumin Albumin/Globulin Ratio TSH Free T3 pg/mL Urine Protein 100 A Urine Occult Blood 0.03 A Ur Leukocyte Esterase 500 A Urine RBC 17 H Urine WBC > 182 H Ur Squamous Epith Cells 12 H Amorphous Crystals Few A Urine Bacteria Few A Hyaline Casts 3 H 05/31/18 05/31/18 05/31/18 16:34 16:34 16:34 RBC 2.70 L Hgb 8.6 L Hct 26.1 L Gran % 90.1 H Lymph % (Auto) 5.8 L Gran # 9.2 H Lymph # (Auto) 0.6 L D-Dimer Sodium 128 L Chloride 90 L BUN 46 H Creatinine 2.4 H Glucose 139 H Calcium 7.2 L Magnesium 0.7 L* TIBC 122 L Unsat Iron Binding < 20 L Transferrin % Sat 83 H Ferritin 1091.0 H GGT AST 44 H Alkaline Phosphatase 146 H Lactate Dehydrogenase Total Protein Albumin 3.0 L Albumin/Globulin Ratio 0.9 L TSH Free T3 pg/mL Urine Protein Urine Occult Blood Ur Leukocyte Esterase Urine RBC Urine WBC Ur Squamous Epith Cells Amorphous Crystals Urine Bacteria Hyaline Casts Meds: Medications Acetaminophen (Tylenol) 650 mg PO Q6HP PRN PRN Reason: PAIN/FEVER > 101 Last Admin: 06/01/18 07:50 Dose: 650 mg Documented by: Hydrocodone Bitart/Acetaminophen (Milo 5/325mg) 1 tab PO Q4HP PRN PRN Reason: Pain Last Admin: 05/31/18 23:29 Dose: 1 tab Documented by: Aspirin (Aspirin) 81 mg PO DAILY [facility] Last Admin: 06/01/18 08:23 Dose: 81 mg Documented by: Calcium/Vitamin D (Calcium W/Vit D3) 500 mg PO DAILY [facility] Last Admin: 06/01/18 09:52 Dose: 500 mg Documented by: Enoxaparin Sodium (Lovenox) 50 mg 1 mg/kg (50 mg) SQ DAILY [facility] Last Admin: 06/01/18 08:24 Dose: 50 mg Documented by: Fish Oil (Fish Oil) 1,000 mg PO DAILY [facility] Last Admin: 06/01/18 09:52 Dose: 1,000 mg Documented by: Hyoscyamine (Levsin) 0.125 mg SL Q4HP PRN PRN Reason: Urinary Discomfort Sodium Chloride (Sodium Chloride 0.9%) 1,000 mls @ 150 mls/hr IV .Q6H40M [facility] Last Admin: 06/01/18 10:57 Dose: 150 mls/hr Documented by: Levothyroxine Sodium (Synthroid) 100 mcg PO QAMAC [facility] Last Admin: 06/01/18 07:46 Dose: 100 mcg Documented by: Loperamide HCl (Imodium) 2 mg PO PRN PRN PRN Reason: Diarrhea Magnesium Oxide (Magnesium Oxide) 800 mg PO BIDD [facility] Last Admin: 06/01/18 07:46 Dose: 800 mg Documented by: Multivit/Ca Carb/B Cmplx/FA/Prenat (Diatx) 1 tab PO [facility] Last Admin: 05/31/18 22:55 Dose: 1 tab Documented by: Naloxone HCl (Narcan) 0.1 mg IV Q2MIN PRN PRN Reason: Opiate Reversal Nicotine (Nicoderm) 7 mg TOPICAL DAILY@1000 [facility] Last Admin: 06/01/18 09:52 Dose: 7 mg Documented by: Nortriptyline HCl (Pamelor) 30 mg PO [facility] Last Admin: 05/31/18 22:54 Dose: 30 mg Documented by: Ondansetron HCl (Zofran) 4 mg IV Q4HP PRN PRN Reason: Nausea And Vomiting Simvastatin (Zocor) 10 mg PO [facility] Last Admin: 05/31/18 22:55 Dose: 10 mg Documented by: Sodium Chloride (Saline Flush) 10 ml IV Q8 [facility] Last Admin: 06/01/18 14:09 Dose: Not Given Documented by: Sodium Chloride (Sodium Chloride) 1 gm PO BID [facility] Last Admin: 06/01/18 08:23 Dose: 1 gm Documented by: Thiamine HCl (Vitamin B1) 100 mg PO HS [facility] Last Admin: 05/31/18 22:55 Dose: 100 mg Documented by: Vitamin D (Vitamin D3) 1,000 unit PO DAILY [facility] Last Admin: 06/01/18 08:24 Dose: 1,000 unit Documented by: Medical - PN: A/P - Time Spent With Patient Total time spent is greater than 50% in coordination of care (as documented) at patient's floor/unit and/or counseling patient: - Narrative A/P Narrative: A/P Severe Hypomagnesemia Orthostatic Dizziness Acute renal failure tobacco abuse malnutrition Anemia Hyponatremia tachycardia Chr Diarrhea/ IBS CKD Hypertension Hypothyroidism, Sick thyroid syndrome (lows tsh and t3, normal t4) Plan Continue with aggressive IV magnesium and oral mag replacement (patient's hypomagnesemia seems multifactorial, chronic diarrhea decreased oral intake as well as alcohol abuse contributing) Nephrology consulted IV fluids for renal dysfunction given tachycardia, and borderline low oxyen sats, and elevated d dmier, on lovenox, therapeutic dose, get vq scan in AM given renal function is not improving. low tsh, low t3 due to acute illness, hold bp meds resume other home meds Educated at length need from etoh cessation, Anemia workup shows elevated ferritin and iron saturation, due to alcohol use? Check fecal occult blood studies. Start replacement with B12 and folic acid for now. Elevated ferritin,iron sat from etoh? Outpatient Hematology referral, check homocysteine and mma levels if hb drops further will transfuse. DVT hep sq Medical - PN: Qual - VTE Deep Vein Thrombosis/Pulmonary Embolism Present on Admission: No
[2018-06-01] MEDS: NORTRIPTYLINE 10 MG CAPSULE PO SCH (20:59)
[2018-06-01] MEDS: FOLIC ACID/VITAMIN B COMP W-C 1 TAB TABLET PO SCH (20:59)
[2018-06-01] MEDS: SIMVASTATIN 10 MG TABLET PO SCH (21:00)
[2018-06-01] MEDS: THIAMINE 100 MG TABLET PO SCH (21:00)
[2018-06-01 21:47] LABS: Appearance,Urine TURBID; Bacteria,Urine 0 /hpf (0); Bilirubin,Urine NEG (NEG); Color,Urine YELLOW; Glucose,Urine (UA) NEGATIVE (NEG); Leukocyte Esterase,Urine 500 /uL (NEG); Mucus,Urine MOD /hpf (0); Protein,Urine 100 mg/dL (NEG); Specific Gravity,Urine 1.014 (1.000-1.035); Urine Blood 0.03 mg/dL (<0.03); Urine RBC > 182 /hpf (0-1); Urine Squamous Epithelial Cell 0 /hpf (0-4); Urine WBC > 182 /hpf (0-4); Urobilinogen,Urine NEG (NEG)
[2018-06-01] MEDS: cefTRIAXone 1 GM VIAL IV SCH (22:37)
[2018-06-02] MEDS: 0.9 % SODIUM CHLORIDE 10 ML SYRINGE IV SCH ×3 (05:22→20:59)
[2018-06-02] MEDS: 0.9 % SODIUM CHLORIDE 1,000 ML IV SCH ×3 (05:47→20:59)
[2018-06-02 06:05] LABS: Basophils # (Auto) 0 K/mcL (0.0-0.3); Basophils % (Auto) 0 % (0.0-2.0); Eosinophils # (Auto) 0 K/mcL (0.0-0.7); Eosinophils % (Auto) 0 % (0.0-7.0); Granulocytes % (Auto) 91.6 % (38.0-78.0); Lymphocytes # (Auto) 0.5 K/mcL (1.5-4.8); Lymphocytes % (Auto) 3.8 % (15.5-49.0); Mean Cell Volume 98.4 fL (80.0-100.0); Monocytes # (Auto) 0.6 K/mcL (0.1-0.9); Monocytes % (Auto) 4.6 % (1.0-12.0); Platelet Count 142 K/mcL (140-440); RBC 1.94 M/mcL (4.00-5.20); Red Cell Distribution Width 12.2 % (11.5-14.5)
[2018-06-02] MEDS ORDERED: 0.9 % SODIUM CHLORIDE 250 ML IV SCH (06:15)
[2018-06-02 06:38] LABS: ALT/SGPT 15 U/l (0-40); Albumin 2.3 gm/dL (3.2-5.2); Albumin/Globulin Ratio 0.8 (1.0-2.3); Alkaline Phosphatase 123 U/L (39-117); Bilirubin,Direct 0.2 mg/dL (0.0-0.3); Blood Urea Nitrogen 49 mg/dl (8-23); Gamma Glutamyl Transpeptidase 69 U/L (5-36)
--- NOTE | 2018-06-02 06:43 | Internal Med Progress Note ---
Medical - PN: Subj Patient information: Note initiated : 06/02/18 at 6:40 am Libby Candelaria is a 78-year-old female admitted on 05/31/18 after a fall at home. Chief Complaint: Weakness Pertinent ROS: Weakness No nausea No chest pain No abdominal pain No edema - Constitutional Vitals: Vital Signs Temp Pulse Resp BP Pulse Ox 99.0 F 109 H 24 H 94/54 95 06/02/18 04:00 06/02/18 04:00 06/02/18 04:00 06/02/18 04:00 06/02/18 04:00 Period Temp Pulse Resp BP Sys/Marques Pulse Ox Last 24 Hr 97.0 F-99.2 F 100-109 18-24 87-95/52-63 90-98 Intake and Output 06/01/18 06/02/18 06/02/18 21:59 05:59 13:59 Intake Total 1440 2700 Output Total 570 200 Balance 870 2500 Weight 115 lb Intake & Output: Intake & Output 06/01/18 06/02/18 06/02/18 21:59 05:59 13:59 Intake Total 1440 2700 Output Total 570 200 Balance 870 2500 Weight 115 lb Intake: IV 1000 2000 Sodium Chloride 0.9% 1,000 ml @ 1000 2000 150 mls/hr IV .Q6H40M [facility] Rx#: [id number] Oral 440 700 Output: Urine Catheter Amount 570 200 Uretheral (Bentley) 295 Other: Meal Dinner Percent of Meal Consumed 20% Feeding Ability Assist with Tray Set Up Urine Appearance Cloudy Cloudy Sediment Sediment Uretheral (Bentley) Cloudy Sediment Urine Color Straw Straw Uretheral (Bentley) Straw Urine Odor Foul Foul General appearance: average body habitus, no acute distress - Head Head exam: Present: normal inspection - Eye Eye exam: Present: normal appearance - ENT ENT exam: Present: mucous membranes moist - Neck Neck exam: Present: normal inspection - Respiratory Respiratory exam: Present: normal respiratory exam - Cardiovascular Cardiovascular exam: Present: normal rate and rhythm - GI/Abdominal GI/Abdominal exam: Present: soft. Absent: tenderness - Additional comments: Bentley catheter - Extremities Exam Extremities exam: Present: normal inspection. Absent: pedal edema - Neurological Exam Neurological exam: Present: alert, oriented X3 - Psychiatric Psychiatric exam: Present: normal affect, normal mood - Skin Skin exam: Present: dry, warm Medical - PN: Obj Da - Labs CBC & Chem 7: 06/02/18 03:35 06/02/18 03:35 Labs: Abnormal Lab Results 06/02/18 06/02/18 06/01/18 03:35 03:35 19:57 WBC 12.9 H RBC 1.94 L Hgb 6.3 L* Hct 19.0 L* MPV 10.7 H Gran % 91.6 H Lymph % (Auto) 3.8 L Gran # 11.8 H Lymph # (Auto) 0.5 L D-Dimer Sodium Chloride Carbon Dioxide 18 L Anion Gap 17.0 H BUN 49 H Creatinine 2.5 H Glucose 176 H Calcium 7.6 L Magnesium TIBC Unsat Iron Binding Transferrin % Sat Ferritin GGT 69 H AST 43 H Alkaline Phosphatase 123 H Lactate Dehydrogenase 318 H Total Protein 5.1 L Albumin 2.3 L Albumin/Globulin Ratio 0.8 L TSH Free T3 pg/mL Urine Protein 100 A Urine Occult Blood 0.03 A Ur Leukocyte Esterase 500 A Urine RBC > 182 H Urine WBC > 182 H Ur Squamous Epith Cells Amorphous Crystals Urine Bacteria Hyaline Casts 06/01/18 06/01/18 06/01/18 04:30 04:30 04:30 WBC RBC Hgb Hct MPV Gran % Lymph % (Auto) Gran # Lymph # (Auto) D-Dimer Sodium 132 L Chloride 94 L Carbon Dioxide Anion Gap BUN 47 H Creatinine 2.3 H Glucose 122 H Calcium 7.2 L Magnesium 1.4 L TIBC Unsat Iron Binding Transferrin % Sat Ferritin GGT 72 H AST 42 H Alkaline Phosphatase 121 H Lactate Dehydrogenase 255 H Total Protein 5.4 L Albumin 2.5 L Albumin/Globulin Ratio 0.9 L TSH 0.04 L Free T3 pg/mL 1.8 L Urine Protein Urine Occult Blood Ur Leukocyte Esterase Urine RBC Urine WBC Ur Squamous Epith Cells Amorphous Crystals Urine Bacteria Hyaline Casts 06/01/18 05/31/18 05/31/18 04:30 19:55 16:34 WBC RBC 2.28 L Hgb 7.3 L Hct 22.2 L MPV Gran % 81.8 H Lymph % (Auto) 12.1 L Gran # Lymph # (Auto) 1.1 L D-Dimer 1.59 H Sodium Chloride Carbon Dioxide Anion Gap BUN Creatinine Glucose Calcium Magnesium TIBC Unsat Iron Binding Transferrin % Sat Ferritin GGT AST Alkaline Phosphatase Lactate Dehydrogenase Total Protein Albumin Albumin/Globulin Ratio TSH Free T3 pg/mL Urine Protein 100 A Urine Occult Blood 0.03 A Ur Leukocyte Esterase 500 A Urine RBC 17 H Urine WBC > 182 H Ur Squamous Epith Cells 12 H Amorphous Crystals Few A Urine Bacteria Few A Hyaline Casts 3 H 05/31/18 05/31/18 05/31/18 16:34 16:34 16:34 WBC RBC 2.70 L Hgb 8.6 L Hct 26.1 L MPV Gran % 90.1 H Lymph % (Auto) 5.8 L Gran # 9.2 H Lymph # (Auto) 0.6 L D-Dimer Sodium 128 L Chloride 90 L Carbon Dioxide Anion Gap BUN 46 H Creatinine 2.4 H Glucose 139 H Calcium 7.2 L Magnesium 0.7 L* TIBC 122 L Unsat Iron Binding < 20 L Transferrin % Sat 83 H Ferritin 1091.0 H GGT AST 44 H Alkaline Phosphatase 146 H Lactate Dehydrogenase Total Protein Albumin 3.0 L Albumin/Globulin Ratio 0.9 L TSH Free T3 pg/mL Urine Protein Urine Occult Blood Ur Leukocyte Esterase Urine RBC Urine WBC Ur Squamous Epith Cells Amorphous Crystals Urine Bacteria Hyaline Casts Meds: Medications Acetaminophen (Tylenol) 650 mg PO Q6HP PRN PRN Reason: PAIN/FEVER > 101 Last Admin: 06/01/18 07:50 Dose: 650 mg Documented by: Hydrocodone Bitart/Acetaminophen (Shedd 5/325mg) 1 tab PO Q4HP PRN PRN Reason: Pain Last Admin: 05/31/18 23:29 Dose: 1 tab Documented by: Aspirin (Aspirin) 81 mg PO DAILY [facility] Last Admin: 06/01/18 08:23 Dose: 81 mg Documented by: Calcium/Vitamin D (Calcium W/Vit D3) 500 mg PO DAILY [facility] Last Admin: 06/01/18 09:52 Dose: 500 mg Documented by: Ceftriaxone Sodium (Rocephin) 1 gm IV Q24H [facility] Stop: 06/04/18 22:14 Last Admin: 06/01/18 22:37 Dose: 1 gm Documented by: Enoxaparin Sodium (Lovenox) 50 mg 1 mg/kg (50 mg) SQ DAILY [facility] Last Admin: 06/01/18 08:24 Dose: 50 mg Documented by: Fish Oil (Fish Oil) 1,000 mg PO DAILY [facility] Last Admin: 06/01/18 09:52 Dose: 1,000 mg Documented by: Hyoscyamine (Levsin) 0.125 mg SL Q4HP PRN PRN Reason: Urinary Discomfort Sodium Chloride (Sodium Chloride 0.9%) 1,000 mls @ 150 mls/hr IV .Q6H40M [facility] Last Admin: 06/02/18 05:47 Dose: 150 mls/hr Documented by: Sodium Chloride (Sodium Chloride 0.9%) 250 mls @ 20 mls/hr IV .[id number] [facility] Stop: 06/02/18 18:44 Levothyroxine Sodium (Synthroid) 100 mcg PO QAMAC [facility] Last Admin: 06/01/18 07:46 Dose: 100 mcg Documented by: Loperamide HCl (Imodium) 2 mg PO PRN PRN PRN Reason: Diarrhea Magnesium Oxide (Magnesium Oxide) 800 mg PO BIDD [facility] Last Admin: 06/01/18 16:45 Dose: 800 mg Documented by: Multivit/Ca Carb/B Cmplx/FA/Prenat (Diatx) 1 tab PO [facility] Last Admin: 06/01/18 20:59 Dose: 1 tab Documented by: Naloxone HCl (Narcan) 0.1 mg IV Q2MIN PRN PRN Reason: Opiate Reversal Nicotine (Nicoderm) 7 mg TOPICAL DAILY@1000 [facility] Last Admin: 06/01/18 09:52 Dose: 7 mg Documented by: Nortriptyline HCl (Pamelor) 30 mg PO [facility] Last Admin: 06/01/18 20:59 Dose: 30 mg Documented by: Ondansetron HCl (Zofran) 4 mg IV Q4HP PRN PRN Reason: Nausea And Vomiting Simvastatin (Zocor) 10 mg PO [facility] Last Admin: 06/01/18 21:00 Dose: 10 mg Documented by: Sodium Chloride (Saline Flush) 10 ml IV Q8 [facility] Last Admin: 06/02/18 05:22 Dose: Not Given Documented by: Sodium Chloride (Sodium Chloride) 1 gm PO BID [facility] Last Admin: 06/01/18 21:00 Dose: 1 gm Documented by: Thiamine HCl (Vitamin B1) 100 mg PO [facility] Last Admin: 06/01/18 21:00 Dose: 100 mg Documented by: Vitamin D (Vitamin D3) 1,000 unit PO DAILY [facility] Last Admin: 06/01/18 08:24 Dose: 1,000 unit Documented by: Medical - PN: A/P - Time Spent With Patient Total time spent is greater than 50% in coordination of care (as documented) at patient's floor/unit and/or counseling patient: Greater than 35 minutes (1) Acute on chronic renal failure Status: Acute Assessment and plan: Libby Candelaria is a 78-year-old female with hypertension, hyperlipidemia, hypothyroidism, chronic kidney disease stage 3, left renal artery stenosis s/p stent, chronic hyponatremia, admitted on 05/31/18 after a fall at home. She has been dizzy for several days. She has been on Sodium chloride 1 gram twice daily, Furosemide 20 mg daily and Lisinopril 40 mg daily and Amlodipine 10 mg daily at home. Acute kidney injury on chronic kidney disease stage 3 with initial hyponatremia and hypomagnesemia, likely acute tubular necrosis associated with prolonged deh ydration, diuretic and ACEI use, present on arrival. There is no recent history of IV contrast administration or NSAID use. Work up: Urinalysis on 05/31/18: Yellow, Cloudy, pH 8.0, SG 1.011, protein 100, occult blood 0.03, leukocyte esterase 500. US Renal on 06/01/18: Multiple cysts in both kidneys which remain stable. Markedly diminished urine output from both kidneys. This may be due to acute kidney injury. Trace amount of free fluid adjacent to the capsule in both kidneys which is nonspecific but might be related to the recent injury. Progress: Urine output: 770 ml reported in the past 12 hours. Creatinine increased from 2.3 to 2.5 in the past 24 hours. Hyponatremia., resolved. Hypomagnesemia, resolved. Plan: No acute hemodialysis need. Avoid NSAIDs, nephrotoxic medications and IV contrast. Monitor BMP and urine output. Current Visit: Yes (2) Hyponatremia Status: Resolved Current Visit: Yes (3) Hypomagnesemia Status: Resolved Current Visit: Yes Medical - PN: Qual - VTE Deep Vein Thrombosis/Pulmonary Embolism Present on Admission: No
[2018-06-02] MEDS: LEVOTHYROXINE 100 MCG TABLET PO SCH (07:16)
[2018-06-02] MEDS: HYDROcodone/APAP 5/325MG TABLET PO PRN (08:51)
[2018-06-02] MEDS: VITAMIN D3 1,000 UNIT TABLET PO SCH (08:51)
[2018-06-02] MEDS: FISH OIL 1,000 MG CAPSULE PO SCH (08:51)
[2018-06-02] MEDS: NICOTINE 7 MG PATCH TOPICAL SCH (08:51)
--- NOTE | 2018-06-02 08:52 | Cat Scan Report ---
History: Fell, low hemoglobin level, evaluate for internal bleeding TECHNIQUE: The patient was imaged without oral or intravenous contrast scanning from the thoracic inlet to the symphysis pubis. Sagittal and coronal reformats were created. The radiation exposure was limited using dose reduction technology. FINDINGS: Chest: There is partial atelectasis of the right middle lobe due to partial occlusion of the proximal right middle lobe bronchi. This may be due to mucous plugging. No mass is identified in the hilum on this nonenhanced study. Minor dependent atelectasis is present adjacent to the pleura posteriorly in both lung bases. There is also a small zone of consolidated lung parenchyma anteriorly medially in the right upper lobe and anteriorly in the superior segment lingula. This could be atelectasis or inflammation. There are bilateral layering pleural effusions. This is small to moderate volume of the right and small in volume of the left side. No acute rib or spinal fracture are seen. Severe atherosclerotic disease is present throughout the thoracic aorta and coronary arteries. There is no aneurysm or dissection. There is a large amount of plaque filling in the lumen of the distal thoracic aorta causing moderate stenosis. The heart is borderline enlarged. No pericardial effusion is present. Abdomen and pelvis: Evaluation the abdominal organs without contrast is somewhat limited. The liver and spleen are normal in size and homogeneous with no apparent laceration. The gallbladder has been removed and there are clips in the gallbladder fossa. The bile ducts are nondilated. There is moderate stranding of the perirenal fat bilaterally. This has some nodularity around the right kidney. This could be scar, inflammation or hematoma. There is no evidence of laceration of either kidney. There is a 1.8 cm cyst in the lower third of the left kidney. There is an exophytic 1.6 cm high attenuation nodule at the upper pole the left kidney. Anterior to the midportion left kidney there is another low-attenuation nodule measuring 2.2 cm. This is indeterminate. A nonobstructing 2 x 5 mm calculus is present in a calyx laterally in the middle third of the right kidney. No hydronephrosis is present. There is severe atherosclerotic disease in the arteries throughout the abdomen or pelvis. 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 It measures 2.8 x 2.9 cm. At the level of L2, the lumen of the aorta appears to be nearly completely occluded by densely calcified plaque. Similar findings are present at the origins of both common iliac arteries. There is moderate amount of fluid throughout nondilated small intestine. The colon is largely decompressed. There are several noninflamed diverticula in the descending and sigmoid colon. The patient has a metal hip prosthesis which creates significant beam hardening artifact in lower pelvis. There are some fluid in the cul-de-sac. I cannot determine if this is free fluid or fluid-filled small bowel. There is no other suggestion of intraperitoneal hemorrhage. No free intraperitoneal air is present. Bone windows show no evidence of a spinal or pelvic fracture. There is arthritis in the lumbar spine with moderate disc space narrowing at L5-S1. Patient also has mild arthritis in the right hip. IMPRESSION: Perinephric stranding bilaterally. This is nonspecific and could be due to scar, inflammation or small amount of perinephric bleeding. No evidence of lacerated abdominal organ Bilateral layering pleural effusions, [id number] on the right and small on the left side. Severe atherosclerotic disease with near complete occlusion of the mid abdominal aorta and the proximal common iliac arteries Nodules in the left kidney. At least one of them is a cyst. The others could be complex cysts with proteinaceous debris. Solid renal mass cannot be excluded. Mild right middle lobe atelectasis due to partial occlusion of the right middle lobe bronchi Interpreted and Authenticated by: Alil Klein 06/02/18
[2018-06-02] MEDS: CALCIUM W/VIT D3 500 MG TABLET PO SCH (08:53)
[2018-06-02] MEDS: ASPIRIN 81 MG TAB.CHEW PO SCH (08:53)
[2018-06-02] MEDS: MAGNESIUM OXIDE 400 MG TABLET PO SCH ×2 (08:53→16:34)
[2018-06-02] MEDS: SODIUM CHLORIDE 1 GM TABLET PO SCH ×2 (09:19→20:58)
--- NOTE | 2018-06-02 14:56 | Internal Med Progress Note ---
Medical - PN: Subj Patient information: Note initiated : 06/02/18 at 2:53 pm Service Date, if different from initiated Date: [] Patient: Libby Candelaria a 78 y/o F admitted on 05/31/18 for fall, hit chest and chin. Chief Complaint: [] Interval history: Ms. Candelaria is a 78 year old F who lives by herself, history of heavy alcohol use, smoker presents to the hospital for evaluation of fall. The patient notes that she has not been feeling well over the last 2 weeks, she has been getting dizzy whenever she stands up. She has seen a primary care provider for same who had cut back on her blood pressure medications. Today she stood up from sitting position and walked a few steps and then fell forward face down. She presented to the hospital for further evaluation because of this. She injured her lips and her dentures. The patient denies any headache loss of consciousness denies any palpitations chest pain shortness of breath nausea or belly pain vomiting or constipation. She admits to having chronic diarrhea for the last few years. The patient notes that she has not been eating and drinking well for the last few weeks notes that dizziness prevents her from doing much, she also lives by herself and does not feel like cooking for herself. The patient takes a magnesium supplement according to her. The patient has been admitted in the past with a diagnosis of hypophosphatemia hypokalemia and hypomagnesemia. On presentation to the emergency room patient was afebrile, tachycardic with heart rate 110-120, stable blood pressure maintaining oxygen saturation more than 90% on room air. Labs showed WBC count of 10.2 hemoglobin 8.6, MCV 96 platelets 217 sodium 128 potassium 4.6 bicarbonate 24 creatinine 2.4 glucose 139, calcium 7.2 albumin 3.0 magnesium 0.7. Reticulocyte count is 1.0, haptoglobin 123, iron 102, TIBC 122, ferritin 1091, iron saturation 83%, B12 level is 447, folic acid 5.3 Given patient has critically low magnesium, symptomatic orthostatic dizziness, fall, acute renal failure patient is being admitted to the hospital for further management 06/01 Patient seen and examined, no acute overnight events. Patient doing well, magnesium still low, continue oral and IV replacement. Patient has not had any bowel movements yet. Hemoglobin trending down as expected after IV fluids. I would expect the patient would likely need blood transfusion tomorrow. Workup for anemia is negative so far. Pt renal function did not improve significantly, bp on the lower end, and pt not making much urine, nephrology consulted. 06/01 Patient seen and examined, no acute overnight events. Patient's blood pressure has been a bit soft. Patient's hemoglobin this morning is 6.3, no evidence of melena or bright red blood stools reported however given acute drop we will transfuse 2 units. Kuldip p so far negative gastroenterology has been consulted. CT chest abdomen and pelvis is negative for any intra-peritoneal bleed retroperitoneal bleed Nephrology following no indication for dialysis Pertinent ROS: Denies headache, dizziness Denies chest pain, palpitations Denies cough or shortness of breath Denies abdominal pain, nausea or vomiting. - Constitutional Vitals: Vital Signs Temp Pulse Resp BP Pulse Ox 98.0 F 100 H 20 99/65 95 06/02/18 12:00 06/02/18 07:34 06/02/18 12:00 06/02/18 12:00 06/02/18 12:00 Period Temp Pulse Resp BP Sys/Marques Pulse Ox Last 24 Hr 97.0 F-99.2 F 100-109 18-24 87-99/52-65 94-98 Intake and Output 06/02/18 06/02/18 06/02/18 05:59 13:59 21:59 Intake Total 2700 Output Total 200 Balance 2500 Intake & Output: Intake & Output 06/02/18 06/02/18 06/02/18 05:59 13:59 21:59 Intake Total 2700 Output Total 200 Balance 2500 Intake: IV 2000 Sodium Chloride 0.9% 1,000 ml @ 2000 150 mls/hr IV .Q6H40M [facility] Rx#: [id number] Oral 700 Output: Urine Catheter Amount 200 Other: Meal Breakfast Percent of Meal Consumed 25% Feeding Ability Assist with Tray Set Up Urine Appearance Cloudy Sediment Uretheral ([place]) Cloudy Urine Color Straw Urine Odor Foul Uretheral ([place]) Normal Exam: Constitutional; Afebrile, cooperative, alert, not in distress. Eyes- No icterus, , No periorbital swelling Ears- Ext ear normal, hearing normal to conversation. Neck- Midline trachea, supple Respiratory system: Air Entry equal on both sides, No crackles or wheezing, no rhonchi. CVS- Rate rhythm regular, S1,S2 heard, no gallop, no rub. Abdomen- Soft nontender abdomen, no organomegaly, no tenderness, no guarding or rigidity, [employer]- AOOx3, moving all extremities, no gross focal deficit noted. Medical - PN: Obj Da - Labs CBC & Chem 7: 06/02/18 03:35 06/02/18 03:35 Labs: Abnormal Lab Results 06/02/18 06/02/18 06/01/18 03:35 03:35 19:57 WBC 12.9 H RBC 1.94 L Hgb 6.3 L* Hct 19.0 L* MPV 10.7 H Gran % 91.6 H Lymph % (Auto) 3.8 L Gran # 11.8 H Lymph # (Auto) 0.5 L D-Dimer Sodium Chloride Carbon Dioxide 18 L Anion Gap 17.0 H BUN 49 H Creatinine 2.5 H Glucose 176 H Calcium 7.6 L Magnesium TIBC Unsat Iron Binding Transferrin % Sat Ferritin GGT 69 H AST 43 H Alkaline Phosphatase 123 H Lactate Dehydrogenase 318 H Total Protein 5.1 L Albumin 2.3 L Albumin/Globulin Ratio 0.8 L TSH Free T3 pg/mL Urine Protein 100 A Urine Occult Blood 0.03 A Ur Leukocyte Esterase 500 A Urine RBC > 182 H Urine WBC > 182 H Ur Squamous Epith Cells Amorphous Crystals Urine Bacteria Hyaline Casts 06/01/18 06/01/18 06/01/18 04:30 04:30 04:30 WBC RBC Hgb Hct MPV Gran % Lymph % (Auto) Gran # Lymph # (Auto) D-Dimer Sodium 132 L Chloride 94 L Carbon Dioxide Anion Gap BUN 47 H Creatinine 2.3 H Glucose 122 H Calcium 7.2 L Magnesium 1.4 L TIBC Unsat Iron Binding Transferrin % Sat Ferritin GGT 72 H AST 42 H Alkaline Phosphatase 121 H Lactate Dehydrogenase 255 H Total Protein 5.4 L Albumin 2.5 L Albumin/Globulin Ratio 0.9 L TSH 0.04 L Free T3 pg/mL 1.8 L Urine Protein Urine Occult Blood Ur Leukocyte Esterase Urine RBC Urine WBC Ur Squamous Epith Cells Amorphous Crystals Urine Bacteria Hyaline Casts 06/01/18 05/31/18 05/31/18 04:30 19:55 16:34 WBC RBC 2.28 L Hgb 7.3 L Hct 22.2 L MPV Gran % 81.8 H Lymph % (Auto) 12.1 L Gran # Lymph # (Auto) 1.1 L D-Dimer 1.59 H Sodium Chloride Carbon Dioxide Anion Gap BUN Creatinine Glucose Calcium Magnesium TIBC Unsat Iron Binding Transferrin % Sat Ferritin GGT AST Alkaline Phosphatase Lactate Dehydrogenase Total Protein Albumin Albumin/Globulin Ratio TSH Free T3 pg/mL Urine Protein 100 A Urine Occult Blood 0.03 A Ur Leukocyte Esterase 500 A Urine RBC 17 H Urine WBC > 182 H Ur Squamous Epith Cells 12 H Amorphous Crystals Few A Urine Bacteria Few A Hyaline Casts 3 H 05/31/18 05/31/18 05/31/18 16:34 16:34 16:34 WBC RBC 2.70 L Hgb 8.6 L Hct 26.1 L MPV Gran % 90.1 H Lymph % (Auto) 5.8 L Gran # 9.2 H Lymph # (Auto) 0.6 L D-Dimer Sodium 128 L Chloride 90 L Carbon Dioxide Anion Gap BUN 46 H Creatinine 2.4 H Glucose 139 H Calcium 7.2 L Magnesium 0.7 L* TIBC 122 L Unsat Iron Binding < 20 L Transferrin % Sat 83 H Ferritin 1091.0 H GGT AST 44 H Alkaline Phosphatase 146 H Lactate Dehydrogenase Total Protein Albumin 3.0 L Albumin/Globulin Ratio 0.9 L TSH Free T3 pg/mL Urine Protein Urine Occult Blood Ur Leukocyte Esterase Urine RBC Urine WBC Ur Squamous Epith Cells Amorphous Crystals Urine Bacteria Hyaline Casts Meds: Medications Acetaminophen (Tylenol) 650 mg PO Q6HP PRN PRN Reason: PAIN/FEVER > 101 Last Admin: 06/01/18 07:50 Dose: 650 mg Documented by: Hydrocodone Bitart/Acetaminophen ([place] 5/325mg) 1 tab PO Q4HP PRN PRN Reason: Pain Last Admin: 06/02/18 08:51 Dose: 1 tab Documented by: Aspirin (Aspirin) 81 mg PO DAILY [facility] Last Admin: 06/02/18 08:53 Dose: 81 mg Documented by: Calcium/Vitamin D (Calcium W/Vit D3) 500 mg PO DAILY [facility] Last Admin: 06/02/18 08:53 Dose: 500 mg Documented by: Ceftriaxone Sodium (Rocephin) 1 gm IV Q24H [facility] Stop: 06/04/18 22:14 Last Admin: 06/01/18 22:37 Dose: 1 gm Documented by: Fish Oil (Fish Oil) 1,000 mg PO DAILY [facility] Last Admin: 06/02/18 08:51 Dose: 1,000 mg Documented by: Hyoscyamine (Levsin) 0.125 mg SL Q4HP PRN PRN Reason: Urinary Discomfort Sodium Chloride (Sodium Chloride 0.9%) 1,000 mls @ 150 mls/hr IV .Q6H40M [facility] Last Admin: 06/02/18 05:47 Dose: 150 mls/hr Documented by: Sodium Chloride (Sodium Chloride 0.9%) 250 mls @ 20 mls/hr IV .[id number] [facility] Stop: 06/02/18 18:44 Last Admin: 06/02/18 10:37 Dose: 20 mls/hr Documented by: Levothyroxine Sodium (Synthroid) 100 mcg PO QAMAC [facility] Last Admin: 06/02/18 07:16 Dose: 100 mcg Documented by: Loperamide HCl (Imodium) 2 mg PO PRN PRN PRN Reason: Diarrhea Magnesium Oxide (Magnesium Oxide) 800 mg PO BIDD [facility] Last Admin: 06/02/18 08:53 Dose: 800 mg Documented by: Multivit/Ca Carb/B Cmplx/FA/Prenat (Diatx) 1 tab PO [facility] Last Admin: 06/01/18 20:59 Dose: 1 tab Documented by: Naloxone HCl (Narcan) 0.1 mg IV Q2MIN PRN PRN Reason: Opiate Reversal Nicotine (Nicoderm) 7 mg TOPICAL DAILY@1000 [facility] Last Admin: 06/02/18 08:51 Dose: 7 mg Documented by: Nortriptyline HCl (Pamelor) 30 mg PO [facility] Last Admin: 06/01/18 20:59 Dose: 30 mg Documented by: Ondansetron HCl (Zofran) 4 mg IV Q4HP PRN PRN Reason: Nausea And Vomiting Simvastatin (Zocor) 10 mg PO [facility] Last Admin: 06/01/18 21:00 Dose: 10 mg Documented by: Sodium Chloride (Saline Flush) 10 ml IV Q8 [facility] Last Admin: 06/02/18 05:22 Dose: Not Given Documented by: Sodium Chloride (Sodium Chloride) 1 gm PO BID [facility] Last Admin: 06/02/18 09:19 Dose: 1 gm Documented by: Thiamine HCl (Vitamin B1) 100 mg PO [facility] Last Admin: 06/01/18 21:00 Dose: 100 mg Documented by: Vitamin D (Vitamin D3) 1,000 unit PO DAILY [facility] Last Admin: 06/02/18 08:51 Dose: 1,000 unit Documented by: Medical - PN: A/P - Time Spent With Patient Total time spent is greater than 50% in coordination of care (as documented) at patient's floor/unit and/or counseling patient: - Narrative A/P Narrative: A/P Severe Hypomagnesemia Orthostatic Dizziness Acute renal failure tobacco abuse malnutrition Anemia, acute drop Hyponatremia tachycardia Chr Diarrhea/ IBS CKD Hypertension Hypothyroidism, Sick thyroid syndrome (lows tsh and t3, normal t4) Plan Continue to monitor on telemetry Appreciate nephrology consult, no indication for dialysis at this point. Transfuse 2 units of blood, GI consulted, etiology of drop in hemoglobin? Due to hemodilution? Haptoglobin is normal, peripheral Pap smear is negative, Endoscopy planned for this evening if possible. Magnesium level is stable, continue to monitor aggressive oral replacements Hold Lovenox for now given acute drop in hemoglobin, await endoscopy results, plan for VQ scan once patient is more stable DVT scd Medical - PN: Qual - VTE Deep Vein Thrombosis/Pulmonary Embolism Present on Admission: No
[2018-06-02] MEDS ORDERED: PROPOFOL 200 MG/20 ML VIAL IV SCH (16:30)
[2018-06-02] MEDS ORDERED: MIDAZOLAM 2 MG/2 ML VIAL IV SCH (16:30)
[2018-06-02] MEDS ORDERED: MIDAZOLAM 2 MG/2 ML VIAL ONE (16:40)
[2018-06-02] MEDS ORDERED: PROPOFOL 20 ML IV ONE (16:40)
--- NOTE | 2018-06-02 17:12 | General Surgery Consult Note ---
History of Present Illness Patient information: Note initiated : 06/02/18 at 5:10 pm Service Date, if different from initiated Date: [] Patient: Libby Candelaria 78 y/o F admitted on 05/31/18 for fall, hit chest and chin. Chief Complaint: [] Consult date: 06/01/18 Requesting physician: Pricila Butler (Sacral prssure ulcer) History of present illness: I examined this patient along with nursing staff and discussed management with nurse taking care of this patient and with Dr. Butler. Medications and Allergies Home Medications Medication Instructions Recorded Confirmed Type Furosemide [Lasix] 20 mg PO DAILY 03/19/16 05/31/18 History Levothyroxine [Synthroid] 100 mcg PO DAILY 03/19/16 05/31/18 History Lisinopril [Zestril] 40 mg PO DAILY 03/19/16 05/31/18 History Nortriptyline [Pamelor] 30 mg PO HS 03/19/16 05/31/18 History Omeprazole 20 mg PO DAILY 03/19/16 05/31/18 History Pravastatin [Pravachol] 20 mg PO HS 03/19/16 05/31/18 History amLODIPine [Norvasc] 10 mg PO HS 03/19/16 05/31/18 History Aspirin [Ecotrin] 81 mg PO QDAY 09/13/16 05/31/18 History Magnesium Oxide [Magnesium] 400 mg PO QDAY 09/13/16 05/31/18 History Calcium Carbonate/Vitamin D3 1 tab PO DAILY 10/07/16 05/31/18 History [Calcium 600 + Vit D Tablet] Cholecalciferol (Vitamin D3) 1,000 unit PO DAILY 10/07/16 05/31/18 History [Vitamin D3] Hyoscyamine Sulfate [Levsin] 0.125 mg SL Q4HP PRN 10/07/16 05/31/18 History LORazepam [Ativan] 0.5 mg PO PRN PRN 10/07/16 05/31/18 History [place]-3S/Dha/Epa/Fish Oil [Fish 1 each PO DAILY 10/07/16 05/31/18 History Oil [place]-3 Softgel] Sodium Chloride 1 gm PO BID 12/17/16 05/31/18 History HYDROcodone/APAP 5/325MG [[place] 1 tab PO Q4HP PRN #30 tab 12/18/16 05/31/18 Rx 5-325Mg] Allergies Allergy/AdvReac Type Severity Reaction Status Date / Time iodine Allergy Intermediate Swelling Verified 01/01/17 12:58 Exam Temp Pulse Resp BP Pulse Ox 97.7 F 100 H 18 116/79 100 06/02/18 16:00 06/02/18 07:34 06/02/18 16:00 06/02/18 16:00 06/02/18 16:00 - General physical appearance no pain, chronically ill, other (recovering from skin and subcutaneous tissue bruising of the chin area. Pressure ulcer grade 1 sacral, chronic and low priority.) - Eyes PERRL, normal ocular movement - ENT normal pinna, normal mucosa, no congestion - Head Head exam IM: Present: atraumatic, normal inspection, normocephalic - Neck no masses, no venous distension - Cardiovascular Cardiovascular exam IM: Present: normal rate and rhythm - Respiratory normal expansion, clear to auscultation - Abdomen Abdomen: Present: soft, non tender, bowel sounds - Integumentary Present: other (Clean dry superficial abrasions face and chin and forehead area. Healing well. Sacrococcygeal area superficial epidermal ulceration grade 1. Stable, responding to conservative management of offloading.) - Neurologic Present: normal coordination, other (NO focal neurologic weakness noticed.) - Musculoskeletal Present: other (Bed confined at this time. No gross abnormalities of all 4 extremities noted.) - Psychiatric Present: oriented to time, oriented to person, speech is normal Results - Labs 06/03/18 03:10 06/03/18 03:10 Abnormal lab results 06/01/18 06/02/18 06/02/18 Range/Units 19:57 03:35 03:35 WBC 12.9 H (4.5-11.0) K/mcL RBC 1.94 L (4.00-5.20) M/mcL Hgb 6.3 L* (12.0-15.0) g/dL Hct 19.0 L* (36.0-48.0) % MPV 10.7 H (7.4-10.4) fL Gran % 91.6 H (38.0-78.0) % Lymph % (Auto) 3.8 L (15.5-49.0) % Gran # 11.8 H (1.8-8.0) K/mcL Lymph # (Auto) 0.5 L (1.5-4.8) K/mcL Carbon Dioxide 18 L (22-30) mmol/L Anion Gap 17.0 H (8-16) BUN 49 H (8-23) mg/dl Creatinine 2.5 H (0.6-1.1) mg/dl Glucose 176 H (70-105) mg/dL Calcium 7.6 L (8.6-10.4) mg/dl GGT 69 H (5-36) U/L AST 43 H (0-37) U/l Alkaline Phosphatase 123 H (39-117) U/L Lactate Dehydrogenase 318 H (94-250) U/L Total Protein 5.1 L (5.9-8.4) gm/dL Albumin 2.3 L (3.2-5.2) gm/dL Albumin/Globulin Ratio 0.8 L (1.0-2.3) Urine Protein 100 A (NEG) mg/dL Urine Occult Blood 0.03 A (<0.03) mg/dL Ur Leukocyte Esterase 500 A (NEG) /uL Urine RBC > 182 H (0-1) /hpf Urine WBC > 182 H (0-4) /hpf Diabetes panel 06/02/18 Range/Units 03:35 Sodium 133 (133-145) mmol/L Potassium 4.8 (3.3-5.1) mmol/L Chloride 98 (96-108) mmol/L Carbon Dioxide 18 L (22-30) mmol/L BUN 49 H (8-23) mg/dl Creatinine 2.5 H (0.6-1.1) mg/dl Glucose 176 H (70-105) mg/dL Calcium 7.6 L (8.6-10.4) mg/dl AST 43 H (0-37) U/l ALT 15 (0-40) U/l Alkaline Phosphatase 123 H (39-117) U/L Total Protein 5.1 L (5.9-8.4) gm/dL Albumin 2.3 L (3.2-5.2) gm/dL Triglycerides 53 (<150) mg/dl Calcium panel 06/02/18 Range/Units 03:35 Calcium 7.6 L (8.6-10.4) mg/dl Phosphorus 4.5 (2.7-4.5) mg/dL Albumin 2.3 L (3.2-5.2) gm/dL Pituitary panel 06/02/18 Range/Units 03:35 Sodium 133 (133-145) mmol/L Potassium 4.8 (3.3-5.1) mmol/L Chloride 98 (96-108) mmol/L Carbon Dioxide 18 L (22-30) mmol/L BUN 49 H (8-23) mg/dl Creatinine 2.5 H (0.6-1.1) mg/dl Glucose 176 H (70-105) mg/dL Calcium 7.6 L (8.6-10.4) mg/dl Adrenal panel 06/02/18 Range/Units 03:35 Sodium 133 (133-145) mmol/L Potassium 4.8 (3.3-5.1) mmol/L Chloride 98 (96-108) mmol/L Carbon Dioxide 18 L (22-30) mmol/L BUN 49 H (8-23) mg/dl Creatinine 2.5 H (0.6-1.1) mg/dl Glucose 176 H (70-105) mg/dL Calcium 7.6 L (8.6-10.4) mg/dl Total Bilirubin 0.5 (0.0-1.0) mg/dL AST 43 H (0-37) U/l ALT 15 (0-40) U/l Alkaline Phosphatase 123 H (39-117) U/L Total Protein 5.1 L (5.9-8.4) gm/dL Albumin 2.3 L (3.2-5.2) gm/dL All other labs normal. Assessment and Plan (1) Sacral decubitus ulcer Status: Chronic Priority: Low (2) Contusion of face Status: Acute Priority: Medium Qualifiers: Encounter type: initial encounter Qualified Code(s): S00.83XA - Contusion of other part of head, initial encounter (3) Contusion, chest wall Status: Acute Priority: Medium Qualifiers: Encounter type: initial encounter Laterality: unspecified laterality Qualified Code(s): S20.219A - Contusion of unspecified front wall of thorax, initial encounter
[2018-06-02] MEDS: THIAMINE 100 MG TABLET PO SCH (20:58)
[2018-06-02] MEDS: NORTRIPTYLINE 10 MG CAPSULE PO SCH (20:58)
[2018-06-02] MEDS: cefTRIAXone 1 GM VIAL IV SCH (20:58)
[2018-06-02] MEDS: FOLIC ACID/VITAMIN B COMP W-C 1 TAB TABLET PO SCH (20:58)
[2018-06-02] MEDS: SIMVASTATIN 10 MG TABLET PO SCH (20:58)
[2018-06-03] MEDS: 0.9 % SODIUM CHLORIDE 1,000 ML IV SCH ×4 (03:59→19:46)
[2018-06-03] MEDS: 0.9 % SODIUM CHLORIDE 10 ML SYRINGE IV SCH ×3 (04:10→22:01)
[2018-06-03 05:11] LABS: Basophils # (Auto) 0 K/mcL (0.0-0.3); Basophils % (Auto) 0.1 % (0.0-2.0); Eosinophils # (Auto) 0 K/mcL (0.0-0.7); Eosinophils % (Auto) 0.1 % (0.0-7.0); Granulocytes % (Auto) 85.1 % (38.0-78.0); Lymphocytes % (Auto) 7.9 % (15.5-49.0); Monocytes # (Auto) 0.8 K/mcL (0.1-0.9); Monocytes % (Auto) 6.8 % (1.0-12.0); Platelet Count 153 K/mcL (140-440); RBC 3.29 M/mcL (4.00-5.20); Red Cell Distribution Width 15.7 % (11.5-14.5)
[2018-06-03 05:31] LABS: ALT/SGPT 34 U/l (0-40); Albumin 2.4 gm/dL (3.2-5.2); Albumin/Globulin Ratio 0.8 (1.0-2.3); Alkaline Phosphatase 161 U/L (39-117); Bilirubin,Direct 0.2 mg/dL (0.0-0.3); Blood Urea Nitrogen 54 mg/dl (8-23); Gamma Glutamyl Transpeptidase 76 U/L (5-36); Uric Acid 5.8 mg/dL (2.5-8.0)
--- NOTE | 2018-06-03 06:51 | Nephrology Progress Note ---
Subjective Patient information: Note initiated : 06/03/18 at 6:49 am Patient: Libby Candelaria 78 y/o F admitted on 05/31/18 for fall, hit chest and chin. Chief Complaint: Weakness Pertinent ROS: Weakness No nausea No chest pain No abdominal pain No edema Objective - Vital Signs Vital signs: Vital Signs Temp Pulse Pulse Pulse Pulse Resp BP 06/03/18 04:00 97.8 F 115 H 18 06/03/18 00:00 97.6 F 112 H 20 06/02/18 22:20 18 06/02/18 20:00 97.3 F 18 06/02/18 18:45 18 06/02/18 18:30 18 06/02/18 18:15 18 06/02/18 18:00 98.3 F 108 H 14 06/02/18 17:46 111 H 20 06/02/18 17:40 110 H 16 102/48 06/02/18 17:19 109 H 16 109/80 06/02/18 16:00 97.7 F 18 06/02/18 12:00 98.0 F 20 06/02/18 07:34 98.6 F 100 H 104 H 20 06/02/18 07:12 94/62 BP Pulse Ox 06/03/18 04:00 126/72 97 06/03/18 00:00 124/68 99 06/02/18 22:20 122/77 100 06/02/18 20:00 111/81 95 06/02/18 18:45 121/68 100 06/02/18 18:30 112/77 99 06/02/18 18:15 104/70 99 06/02/18 18:00 109/67 99 06/02/18 17:46 97/63 100 06/02/18 17:40 94 06/02/18 17:19 91 06/02/18 16:00 116/79 100 06/02/18 12:00 99/65 95 06/02/18 07:34 96/56 95 06/02/18 07:12 Intake and Output 06/02/18 06/03/18 06/03/18 21:59 05:59 13:59 Intake Total 1614 1000 Output Total 75 100 Balance 1539 900 Intake: IV 1000 1000 Sodium Chloride 0.9% 1,000 ml @ 1000 1000 150 mls/hr IV .Q6H40M [facility] Rx#: [id number] Blood Product 614 Output: Urine Catheter Amount 75 100 Other: Urine Appearance Cloudy Cloudy Urine Color Dark Yellow Light Trisha Urine Odor Strong Weight 121 lb Intake & Output: Intake & Output 06/02/18 06/03/18 06/03/18 21:59 05:59 13:59 Intake Total 1614 1000 Output Total 75 100 Balance 1539 900 Weight 121 lb Intake: IV 1000 1000 Sodium Chloride 0.9% 1,000 ml @ 1000 1000 150 mls/hr IV .Q6H40M [facility] Rx#: [id number] Blood Product 614 Output: Urine Catheter Amount 75 100 Other: Urine Appearance Cloudy Cloudy Urine Color Dark Yellow Light Trisha Urine Odor Strong - General Appearance General appearance: appears started age, fatigue EENT: mucous membranes moist Neck: supple Respiratory: clear Cardiology: no edema Gastrointestinal: no tenderness Integumentary: warm and dry Neurologic: no focal deficit, alert and oriented x3 Musculoskeletal: no deformities Psychiatric: mood/affect appropriate, cooperative - Lab 06/03/18 03:10 06/03/18 03:10 Most recent lab results Calcium 8.3 mg/dl (8.6-10.4) L 06/03/18 03:10 Phosphorus 4.9 mg/dL (2.7-4.5) H 06/03/18 03:10 Magnesium 2.0 mg/dL (1.6-2.5) 06/03/18 03:10 Assessment and Plan (1) Acute on chronic renal failure Libby Candelaria is a 78-year-old female with hypertension, hyperlipidemia, hypothyroidism, chronic kidney disease stage 3, left renal artery stenosis s/p stent, chronic hyponatremia, admitted on 05/31/18 after a fall at home. She has been dizzy for several days. She has been on Sodium chloride 1 gram twice daily, Furosemide 20 mg daily and Lisinopril 40 mg daily and Amlodipine 10 mg daily at home. Acute kidney injury on chronic kidney disease stage 3 with initial hyponatremia and hypomagnesemia, likely acute tubular necrosis associated with prolonged dehydration, diuretic and ACEI use, present on arrival. There is no recent history of IV contrast administration or NSAID use. Work up: Urinalysis on 05/31/18: Yellow, Cloudy, pH 8.0, SG 1.011, protein 100, occult blood 0.03, leukocyte esterase 500. US Renal on 06/01/18: Multiple cysts in both kidneys which remain stable. Markedly diminished urine output from both kidneys. This may be due to acute kidney injury. Trace amount of free fluid adjacent to the capsule in both kidneys which is nonspecific but might be related to the recent injury. Progress: Urine output: 175 ml reported in the past 12 hours. Creatinine increased from 2.5 to 2.8 in the past 24 hours. Hyponatremia. Metabolic acidosis. Plan: No acute hemodialysis need. Avoid NSAIDs, nephrotoxic medications and IV contrast. Monitor BMP and urine output. Status: Acute Priority: High Qualifiers: Acute renal failure type: with acute tubular necrosis Chronic kidney disease stage: stage 3 (moderate) Qualified Code(s): N17.0 - Acute kidney failure with tubular necrosis; N18.3 - Chronic kidney disease, stage 3 (moderate) (2) Hyponatremia Status: Acute Priority: Medium (3) Metabolic acidosis Status: Acute Priority: Medium
[2018-06-03] MEDS: LEVOTHYROXINE 100 MCG TABLET PO SCH (07:29)
[2018-06-03] MEDS: OMEPRAZOLE 20 MG CAPSULE PO SCH (07:29)
[2018-06-03] MEDS: SODIUM CHLORIDE 1 GM TABLET PO SCH ×2 (07:29→22:00)
[2018-06-03] MEDS: VITAMIN D3 1,000 UNIT TABLET PO SCH (07:29)
[2018-06-03] MEDS: MAGNESIUM OXIDE 400 MG TABLET PO SCH ×2 (08:13→16:48)
[2018-06-03] MEDS: ASPIRIN 81 MG TAB.CHEW PO SCH (08:13)
[2018-06-03] MEDS: LOPERAMIDE 2 MG CAPSULE PO PRN ×2 (08:21→17:29)
[2018-06-03] MEDS: FISH OIL 1,000 MG CAPSULE PO SCH (08:21)
[2018-06-03] MEDS: CALCIUM W/VIT D3 500 MG TABLET PO SCH (08:21)
[2018-06-03] MEDS: NICOTINE 7 MG PATCH TOPICAL SCH (08:21)
[2018-06-03] MEDS: HYDROcodone/APAP 5/325MG TABLET PO PRN ×5 (08:21→21:59)
--- NOTE | 2018-06-03 08:46 | Operative Note ---
DATE OF OPERATION: 06/02/2018 PREPROCEDURE DIAGNOSIS: Upper GI bleed, history of alcohol abuse, possible varices. POSTPROCEDURE DIAGNOSES: Hemorrhagic gastritis, history of alcohol abuse. PROCEDURE: Esophagogastroduodenoscopy with biopsy. INSTRUMENT USED: Olympus MOOSE GIF Q180 endoscope. SPECIMENS OBTAINED: Biopsies from antrum for CLOtest. CLOtest RESULTS: Negative INDICATIONS: The patient is a 78-year-old lady whose primary care physician is Dr. Trevino. The patient was admitted to [facility] under the courtesy of Dr. Butler, Hospitalist. The patient did have a fall at home. I believe she hit her face. Hemoglobin for a while was 8.6 and dropped to 6.3. There has been no obvious melena. No significant bright red blood per rectum. Haptoglobin was normal suggesting it was unlikely to have hemolysis. Patient does use some aspirin. I do not see that she has been using a PPI medication. She did not complain of significant peptic ulcer disease-like symptoms. Endoscopy is indicated. INFORMED CONSENT: Time of informed consent 17:07. The procedure was reviewed with the patient. The patient had no further questions and accepts the risks and benefits thereof. One of the risks that were discussed included . Additional risks that were also discussed included bleeding, reaction to medication, possible perforation and possible need for surgery. IV MEDICATIONS USED: Versed 1 and propofol 30. FINDINGS: ESOPHAGUS: Proximal esophagus normal. Mid and distal esophagus: There were some prominent veins but no definite varices noted. No tortuosity. No red spots were seen. No bleeding was noted. EG JUNCTION: This was around 40 cm. There was a hiatal hernia down at about 45 cm. STOMACH: Cardia and fundus normal. Body: Mostly on the greater curve in the body there were areas of oozing of blood. There were areas of erythema and edema. No suggestion of Dieulafoy's lesion. The oozing was fairly slow, sometimes the area would be washed and there was no further bleeding. Other times there may be a tiny bit of bleeding. Given the history of alcohol abuse, this is probably consistent with hemorrhagic gastritis. Sometimes this can bleed briskly. Antrum: This appeared normal. Biopsies were taken for CLOtest. PYLORUS: Normal. DUODENUM: This appeared normal. RECOMMENDATIONS: CBC in a.m. If there is a serious drop in the hemoglobin or red blood per rectum we may need to consider colonoscopy. Currently, I believe good treatment would be a PPI medication such as omeprazole 20 mg 1 p.o. q.a.m. for about 2 months. Prescription can be allowed for #30 with 1 refill. I have handwritten such an order to get started with the omeprazole during that time she is here in the hospital. Obviously, it would be rollins if she could avoid alcohol. Given her past history, this is unlikely, but is encouraged. Currently, I would hold off on a colonoscopy until we have stronger evidence that she is probably bleeding from the lower GI tract. Based on previous experience people who abuse alcohol can have hemorrhagic gastritis and sometimes they can bleed so briskly they can precipitate hypotension and a CODE. SEDATION TIME: 17:15 to 17:40. Please refer to the preprocedure nurse's notes, procedure flowsheet, procedure record, and post-procedure assessment for details of the sedation including the pre-, intra-, and post-service work. [email or web address] Job ID: [id number] Doc ID: [id number] Georgi HOLGUIN
--- NOTE | 2018-06-03 11:48 | Internal Med Progress Note ---
Medical - PN: Subj Patient information: Note initiated : 06/03/18 at 11:44 am Service Date, if different from initiated Date: [] Patient: Libby Candelaria a 78 y/o F admitted on 05/31/18 for fall, hit chest and chin. Chief Complaint: [] Interval history: Ms. Candelaria is a 78 year old F who lives by herself, history of heavy alcohol use, smoker presents to the hospital for evaluation of fall. The patient notes that she has not been feeling well over the last 2 weeks, she has been getting dizzy whenever she stands up. She has seen a primary care provider for same who had cut back on her blood pressure medications. Today she stood up from sitting position and walked a few steps and then fell forward face down. She presented to the hospital for further evaluation because of this. She injured her lips and her dentures. The patient denies any headache loss of consciousness denies any palpitations chest pain shortness of breath nausea or belly pain vomiting or constipation. She admits to having chronic diarrhea for the last few years. The patient notes that she has not been eating and drinking well for the last few weeks notes that dizziness prevents her from doing much, she also lives by herself and does not feel like cooking for herself. The patient takes a magnesium supplement according to her. The patient has been admitted in the past with a diagnosis of hypophosphatemia hypokalemia and hypomagnesemia. On presentation to the emergency room patient was afebrile, tachycardic with heart rate 110-120, stable blood pressure maintaining oxygen saturation more than 90% on room air. Labs showed WBC count of 10.2 hemoglobin 8.6, MCV 96 platelets 217 sodium 128 potassium 4.6 bicarbonate 24 creatinine 2.4 glucose 139, calcium 7.2 albumin 3.0 magnesium 0.7. Reticulocyte count is 1.0, haptoglobin 123, iron 102, TIBC 122, ferritin 1091, iron saturation 83%, B12 level is 447, folic acid 5.3 Given patient has critically low magnesium, symptomatic orthostatic dizziness, fall, acute renal failure patient is being admitted to the hospital for further management 06/01 Patient seen and examined, no acute overnight events. Patient doing well, magnesium still low, continue oral and IV replacement. Patient has not had any bowel movements yet. Hemoglobin trending down as expected after IV fluids. I would expect the patient would likely need blood transfusion tomorrow. Workup for anemia is negative so far. Pt renal function did not improve significantly, bp on the lower end, and pt not making much urine, nephrology consulted. 06/02 Patient seen and examined, no acute overnight events. Patient's blood pressure has been a bit soft. Patient's hemoglobin this morning is 6.3, no evidence of melena or bright red blood stools reported however given acute drop we will transfuse 2 units. Work up so far negative gastroenterology has been consulted. CT chest abdomen and pelvis is negative for any intra-peritoneal bleed retroperitoneal bleed Nephrology following no indication for dialysis 06/03 Pt seen examined, no acute issues, remains tachcyardic, off oxygen EGD shows gastritis, likely source of dropped hb, no colonosocpy planned for now off hep given gi bleed? VQ scan today to r/o PE, Hb rise is appropriate after transfusion. pt wants to go home today, notes her son will take care of her, Pertinent ROS: Denies headache, dizziness Denies chest pain, palpitations Denies cough or shortness of breath Denies abdominal pain, nausea or vomiting. - Constitutional Vitals: Vital Signs Temp Pulse Resp BP Pulse Ox 97.8 F 115 H 18 126/72 97 06/03/18 04:00 06/03/18 04:00 06/03/18 04:00 06/03/18 04:00 06/03/18 04:00 Period Temp Pulse Resp BP Sys/Marques Pulse Ox Last 24 Hr 97.3 F-98.3 F 108-115 14-20 97-126/48-81 91-100 Intake and Output 06/02/18 06/03/18 06/03/18 21:59 05:59 13:59 Intake Total 1614 1000 100 Output Total 75 100 Balance 1539 900 100 Weight 121 lb Intake & Output: Intake & Output 06/02/18 06/03/18 06/03/18 21:59 05:59 13:59 Intake Total 1614 1000 100 Output Total 75 100 Balance 1539 900 100 Weight 121 lb Intake: IV 1000 1000 Sodium Chloride 0.9% 1,000 ml @ 1000 1000 150 mls/hr IV .Q6H40M [facility] Rx#: [id number] Oral 100 Blood Product 614 Output: Urine Catheter Amount 75 100 Other: Meal Breakfast Percent of Meal Consumed 50% Urine Appearance Cloudy Cloudy Urine Color Dark Yellow Light Trisha Urine Odor Strong Exam: Constitutional; Afebrile, cooperative, alert, not in distress. Respiratory system: Air Entry equal on both sides, No crackles or wheezing, no rhonchi. CVS- Rate tachycardic rhythm regular, S1,S2 heard, no gallop, no rub. Abdomen- Soft nontender abdomen, no organomegaly, no tenderness, no guarding or rigidity, [employer]IAN- AOOx3, moving all extremities, no gross focal deficit noted. Medical - PN: Obj Da - Labs CBC & Chem 7: 06/03/18 03:10 06/03/18 03:10 Labs: Abnormal Lab Results 06/03/18 06/03/18 06/02/18 03:10 03:10 03:35 WBC 12.3 H RBC 3.29 L Hgb 10.3 L Hct 31.3 L RDW 15.7 H MPV Gran % 85.1 H Lymph % (Auto) 7.9 L Gran # 10.4 H Lymph # (Auto) 1.0 L D-Dimer Sodium 132 L Chloride Carbon Dioxide 17 L 18 L Anion Gap 17.0 H BUN 54 H 49 H Creatinine 2.8 H 2.5 H Glucose 122 H 176 H Calcium 8.3 L 7.6 L Phosphorus 4.9 H Magnesium TIBC Unsat Iron Binding Transferrin % Sat Ferritin GGT 76 H 69 H AST 103 H 43 H Alkaline Phosphatase 161 H 123 H Lactate Dehydrogenase 321 H 318 H Total Protein 5.6 L 5.1 L Albumin 2.4 L 2.3 L Albumin/Globulin Ratio 0.8 L 0.8 L TSH Free T3 pg/mL Urine Protein Urine Occult Blood Ur Leukocyte Esterase Urine RBC Urine WBC Ur Squamous Epith Cells Amorphous Crystals Urine Bacteria Hyaline Casts 06/02/18 06/01/18 06/01/18 03:35 19:57 04:30 WBC 12.9 H RBC 1.94 L Hgb 6.3 L* Hct 19.0 L* RDW MPV 10.7 H Gran % 91.6 H Lymph % (Auto) 3.8 L Gran # 11.8 H Lymph # (Auto) 0.5 L D-Dimer Sodium Chloride Carbon Dioxide Anion Gap BUN Creatinine Glucose Calcium Phosphorus Magnesium TIBC Unsat Iron Binding Transferrin % Sat Ferritin GGT AST Alkaline Phosphatase Lactate Dehydrogenase Total Protein Albumin Albumin/Globulin Ratio TSH Free T3 pg/mL 1.8 L Urine Protein 100 A Urine Occult Blood 0.03 A Ur Leukocyte Esterase 500 A Urine RBC > 182 H Urine WBC > 182 H Ur Squamous Epith Cells Amorphous Crystals Urine Bacteria Hyaline Casts 06/01/18 06/01/18 06/01/18 04:30 04:30 04:30 WBC RBC 2.28 L Hgb 7.3 L Hct 22.2 L RDW MPV Gran % 81.8 H Lymph % (Auto) 12.1 L Gran # Lymph # (Auto) 1.1 L D-Dimer Sodium 132 L Chloride 94 L Carbon Dioxide Anion Gap BUN 47 H Creatinine 2.3 H Glucose 122 H Calcium 7.2 L Phosphorus Magnesium 1.4 L TIBC Unsat Iron Binding Transferrin % Sat Ferritin GGT 72 H AST 42 H Alkaline Phosphatase 121 H Lactate Dehydrogenase 255 H Total Protein 5.4 L Albumin 2.5 L Albumin/Globulin Ratio 0.9 L TSH 0.04 L Free T3 pg/mL Urine Protein Urine Occult Blood Ur Leukocyte Esterase Urine RBC Urine WBC Ur Squamous Epith Cells Amorphous Crystals Urine Bacteria Hyaline Casts 05/31/18 05/31/18 05/31/18 19:55 16:34 16:34 WBC RBC Hgb Hct RDW MPV Gran % Lymph % (Auto) Gran # Lymph # (Auto) D-Dimer 1.59 H Sodium Chloride Carbon Dioxide Anion Gap BUN Creatinine Glucose Calcium Phosphorus Magnesium TIBC 122 L Unsat Iron Binding < 20 L Transferrin % Sat 83 H Ferritin 1091.0 H GGT AST Alkaline Phosphatase Lactate Dehydrogenase Total Protein Albumin Albumin/Globulin Ratio TSH Free T3 pg/mL Urine Protein 100 A Urine Occult Blood 0.03 A Ur Leukocyte Esterase 500 A Urine RBC 17 H Urine WBC > 182 H Ur Squamous Epith Cells 12 H Amorphous Crystals Few A Urine Bacteria Few A Hyaline Casts 3 H 05/31/18 05/31/18 16:34 16:34 WBC RBC 2.70 L Hgb 8.6 L Hct 26.1 L RDW MPV Gran % 90.1 H Lymph % (Auto) 5.8 L Gran # 9.2 H Lymph # (Auto) 0.6 L D-Dimer Sodium 128 L Chloride 90 L Carbon Dioxide Anion Gap BUN 46 H Creatinine 2.4 H Glucose 139 H Calcium 7.2 L Phosphorus Magnesium 0.7 L* TIBC Unsat Iron Binding Transferrin % Sat Ferritin GGT AST 44 H Alkaline Phosphatase 146 H Lactate Dehydrogenase Total Protein Albumin 3.0 L Albumin/Globulin Ratio 0.9 L TSH Free T3 pg/mL Urine Protein Urine Occult Blood Ur Leukocyte Esterase Urine RBC Urine WBC Ur Squamous Epith Cells Amorphous Crystals Urine Bacteria Hyaline Casts Meds: Medications Acetaminophen (Tylenol) 650 mg PO Q6HP PRN PRN Reason: PAIN/FEVER > 101 Last Admin: 06/01/18 07:50 Dose: 650 mg Documented by: Hydrocodone Bitart/Acetaminophen (Roby 5/325mg) 1 - 2 tab PO Q4HP PRN PRN Reason: Pain Aspirin (Aspirin) [address] [facility] Last Admin: 06/03/18 08:13 Dose: 81 mg Documented by: Calcium/Vitamin D (Calcium W/Vit D3) [address] [facility] Last Admin: 06/03/18 08:21 Dose: 500 mg Documented by: Ceftriaxone Sodium (Rocephin) [address] [facility] Stop: 06/04/18 22:14 Last Admin: 06/02/18 20:58 Dose: 1 gm Documented by: Fish Oil (Fish Oil) 1,[address] [facility] Last Admin: 06/03/18 08:21 Dose: 1,000 mg Documented by: Hyoscyamine (Levsin) 0.125 mg SL Q4HP PRN PRN Reason: Urinary Discomfort Sodium Chloride (Sodium Chloride 0.9%) 1,000 mls @ 150 mls/hr IV .Q6H40M [facility] Last Admin: 06/03/18 03:59 Dose: 150 mls/hr Documented by: Levothyroxine Sodium (Synthroid) [address] [facility] Last Admin: 06/03/18 07:29 Dose: 100 mcg Documented by: Loperamide HCl (Imodium) 2 mg PO PRN PRN PRN Reason: Diarrhea Last Admin: 06/03/18 08:21 Dose: 2 mg Documented by: Magnesium Oxide (Magnesium Oxide) [address] [facility] Last Admin: 06/03/18 08:13 Dose: 800 mg Documented by: Multivit/Ca Carb/B Cmplx/FA/Prenat (Diatx) [address] [facility] Last Admin: 06/02/18 20:58 Dose: 1 tab Documented by: Naloxone HCl (Narcan) 0.1 mg IV Q2MIN PRN PRN Reason: Opiate Reversal Nicotine (Nicoderm) 7 mg TOPICAL DAILY@1000 [facility] Last Admin: 06/03/18 08:21 Dose: 7 mg Documented by: Nortriptyline HCl (Pamelor) 30 mg PO [facility] Last Admin: 06/02/18 20:58 Dose: 30 mg Documented by: Omeprazole (Prilosec) [address] [facility] Last Admin: 06/03/18 07:29 Dose: 20 mg Documented by: Ondansetron HCl (Zofran) 4 mg IV Q4HP PRN PRN Reason: Nausea And Vomiting Simvastatin (Zocor) [address] [facility] Last Admin: 06/02/18 20:58 Dose: 10 mg Documented by: Sodium Chloride (Saline Flush) [address] [facility] Last Admin: 06/03/18 04:10 Dose: Not Given Documented by: Sodium Chloride (Sodium Chloride) [address] [facility] Last Admin: 06/03/18 07:29 Dose: 1 gm Documented by: Thiamine HCl (Vitamin B1) 100 mg PO [facility] Last Admin: 06/02/18 20:58 Dose: 100 mg Documented by: Vitamin D (Vitamin D3) 1,[address] [facility] Last Admin: 06/03/18 07:29 Dose: 1,000 unit Documented by: Medical - PN: A/P - Time Spent With Patient Total time spent is greater than 50% in coordination of care (as documented) at patient's floor/unit and/or counseling patient: - Narrative A/P Narrative: A/P Severe Hypomagnesemia -mg stable, due to poor oral intake and alcohol use, continue aggressive replacement. Mg 2.0 Orthostatic Dizziness -due to dehydration, etoh, Acute renal failure, oligoric, worsening. -nephrology following, management as per them, renal function is worsening, no indication for dialysis yet. tobacco abuse -pt counselled malnutrition -encourage oral intake Anemia, acute drop , acute blood loss anemia -gastritis noted on endoscopy, stable Hyponatremia -resolved tachycardia -etiology, check vq scan given elevated d-dimier and poor mobility, Chr Diarrhea/ IBS -stable, prn loperamide CKD - with acute JEANETTE, nephrology following Hypertension -hold bp meds for now, bp stable Hypothyroidism, Sick thyroid syndrome (lows tsh and t3, normal t4) Decub wounds -wound care consulted,not infected it seems, Dr Hoover following. Plan Continue to monitor on telemetry Appreciate nephrology consult, no indication for dialysis at this point. creat continues to worsen, Transfuse 2 units of blood, GI consulted, etiology of drop in hemoglobin? Due to hemodilution? Haptoglobin is normal, peripheral Path smear is negative, Endoscopy showed gastritis, Magnesium level is stable, continue to monitor aggressive oral replacements Hold Lovenox for now given acute drop in hemoglobin, await endoscopy results, plan for vq today. DVT scd Pt is not stable for discharge. Medical - PN: Qual - VTE Deep Vein Thrombosis/Pulmonary Embolism Present on Admission: No
--- NOTE | 2018-06-03 14:23 | Internal Med Progress Note ---
Medical - PN: Subj Patient information: Note initiated : 06/03/18 at 2:14 pm Service Date, if different from initiated Date: [] Patient: Libby Candelaria a 78 y/o F admitted on 05/31/18 for fall, hit chest and chin. Chief Complaint: [] Interval history: Ms. Candelaria is a 78 year old F who lives by herself, history of heavy alcohol use, smoker presents to the hospital for evaluation of fall. The patient notes that she has not been feeling well over the last 2 weeks, she has been getting dizzy whenever she stands up. She has seen a primary care provider for same who had cut back on her blood pressure medications. Today she stood up from sitting position and walked a few steps and then fell forward face down. She presented to the hospital for further evaluation because of this. She injured her lips and her dentures. The patient denies any headache loss of consciousness denies any palpitations chest pain shortness of breath nausea or belly pain vomiting or constipation. She admits to having chronic diarrhea for the last few years. The patient notes that she has not been eating and drinking well for the last few weeks notes that dizziness prevents her from doing much, she also lives by herself and does not feel like cooking for herself. The patient takes a magnesium supplement according to her. The patient has been admitted in the past with a diagnosis of hypophosphatemia hypokalemia and hypomagnesemia. On presentation to the emergency room patient was afebrile, tachycardic with heart rate 110-120, stable blood pressure maintaining oxygen saturation more than 90% on room air. Labs showed WBC count of 10.2 hemoglobin 8.6, MCV 96 platelets 217 sodium 128 potassium 4.6 bicarbonate 24 creatinine 2.4 glucose 139, calcium 7.2 albumin 3.0 magnesium 0.7. Reticulocyte count is 1.0, haptoglobin 123, iron 102, TIBC 122, ferritin 1091, iron saturation 83%, B12 level is 447, folic acid 5.3 Given patient has critically low magnesium, symptomatic orthostatic dizziness, fall, acute renal failure patient is being admitted to the hospital for further management 06/01 Patient seen and examined, no acute overnight events. Patient doing well, magnesium still low, continue oral and IV replacement. Patient has not had any bowel movements yet. Hemoglobin trending down as expected after IV fluids. I would expect the patient would likely need blood transfusion tomorrow. Workup for anemia is negative so far. Pt renal function did not improve significantly, bp on the lower end, and pt not making much urine, nephrology consulted. 06/02 Patient seen and examined, no acute overnight events. Patient's blood pressure has been a bit soft. Patient's hemoglobin this morning is 6.3, no evidence of melena or bright red blood stools reported however given acute drop we will transfuse 2 units. Work up so far negative gastroenterology has been consulted. CT chest abdomen and pelvis is negative for any intra-peritoneal bleed retroperitoneal bleed Nephrology following no indication for dialysis 06/03 Pt seen examined, no acute issues, remains tachcyardic, off oxygen EGD shows gastritis, likely source of dropped hb, no colonosocpy planned for now off hep given gi bleed? VQ scan today to r/o PE, Hb rise is appropriate after transfusion. pt wants to go home today, notes her son will take care of her, 06/04 - Constitutional Vitals: Vital Signs Temp Pulse Resp BP Pulse Ox 97.5 F 112 H 20 102/71 98 06/03/18 12:00 06/03/18 12:00 06/03/18 12:00 06/03/18 12:00 06/03/18 12:00 Period Temp Pulse Resp BP Sys/Marques Pulse Ox Last 24 Hr 97.3 F-98.3 F 108-115 14-20 97-126/48-81 91-100 Intake and Output 06/03/18 06/03/18 06/03/18 05:59 13:59 21:59 Intake Total 1000 1320 Output Total 100 Balance 900 1320 Intake & Output: Intake & Output 06/03/18 06/03/18 06/03/18 05:59 13:59 21:59 Intake Total 1000 1320 Output Total 100 Balance 900 1320 Intake: IV 1000 1000 Sodium Chloride 0.9% 1,000 ml @ 1000 1000 150 mls/hr IV .Q6H40M [facility] Rx#: [id number] Oral 320 Output: Urine Catheter Amount 100 Other: Meal Lunch Percent of Meal Consumed 25% Feeding Ability Assist with Tray Set Up Urine Appearance Cloudy Urine Color Light Trisha Exam: General: Alert, Awake, No acute Distress Eyes/N/T: EOMI, Head/Neck: neck supple, CV: Tachycardia but regular, No murmurs, Pulm: Clear b/l, no wheezing/rhonchi/rales Abd: soft, nontender, +BS x4 Ext: no clubbing/cyanosis/edema Neuro: Alert, no focal deficits, moves all extremities, Skin: warm/dry Medical - PN: Obj Da - Labs CBC & Chem 7: 06/03/18 03:10 06/03/18 03:10 Labs: Abnormal Lab Results 06/03/18 06/03/18 06/02/18 03:10 03:10 03:35 WBC 12.3 H RBC 3.29 L Hgb 10.3 L Hct 31.3 L RDW 15.7 H MPV Gran % 85.1 H Lymph % (Auto) 7.9 L Gran # 10.4 H Lymph # (Auto) 1.0 L D-Dimer Sodium 132 L Chloride Carbon Dioxide 17 L 18 L Anion Gap 17.0 H BUN 54 H 49 H Creatinine 2.8 H 2.5 H Glucose 122 H 176 H Calcium 8.3 L 7.6 L Phosphorus 4.9 H Magnesium TIBC Unsat Iron Binding Transferrin % Sat Ferritin GGT 76 H 69 H AST 103 H 43 H Alkaline Phosphatase 161 H 123 H Lactate Dehydrogenase 321 H 318 H Total Protein 5.6 L 5.1 L Albumin 2.4 L 2.3 L Albumin/Globulin Ratio 0.8 L 0.8 L Homocysteine Cardiovas TSH Free T3 pg/mL Urine Protein Urine Occult Blood Ur Leukocyte Esterase Urine RBC Urine WBC Ur Squamous Epith Cells Amorphous Crystals Urine Bacteria Hyaline Casts 06/02/18 06/01/18 06/01/18 03:35 19:57 16:38 WBC 12.9 H RBC 1.94 L Hgb 6.3 L* Hct 19.0 L* RDW MPV 10.7 H Gran % 91.6 H Lymph % (Auto) 3.8 L Gran # 11.8 H Lymph # (Auto) 0.5 L D-Dimer Sodium Chloride Carbon Dioxide Anion Gap BUN Creatinine Glucose Calcium Phosphorus Magnesium TIBC Unsat Iron Binding Transferrin % Sat Ferritin GGT AST Alkaline Phosphatase Lactate Dehydrogenase Total Protein Albumin Albumin/Globulin Ratio Homocysteine Cardiovas 28.6 H TSH Free T3 pg/mL Urine Protein 100 A Urine Occult Blood 0.03 A Ur Leukocyte Esterase 500 A Urine RBC > 182 H Urine WBC > 182 H Ur Squamous Epith Cells Amorphous Crystals Urine Bacteria Hyaline Casts 06/01/18 06/01/18 06/01/18 04:30 04:30 04:30 WBC RBC Hgb Hct RDW MPV Gran % Lymph % (Auto) Gran # Lymph # (Auto) D-Dimer Sodium 132 L Chloride 94 L Carbon Dioxide Anion Gap BUN 47 H Creatinine 2.3 H Glucose 122 H Calcium 7.2 L Phosphorus Magnesium 1.4 L TIBC Unsat Iron Binding Transferrin % Sat Ferritin GGT 72 H AST 42 H Alkaline Phosphatase 121 H Lactate Dehydrogenase 255 H Total Protein 5.4 L Albumin 2.5 L Albumin/Globulin Ratio 0.9 L Homocysteine Cardiovas TSH 0.04 L Free T3 pg/mL 1.8 L Urine Protein Urine Occult Blood Ur Leukocyte Esterase Urine RBC Urine WBC Ur Squamous Epith Cells Amorphous Crystals Urine Bacteria Hyaline Casts 06/01/18 05/31/18 05/31/18 04:30 19:55 16:34 WBC RBC 2.28 L Hgb 7.3 L Hct 22.2 L RDW MPV Gran % 81.8 H Lymph % (Auto) 12.1 L Gran # Lymph # (Auto) 1.1 L D-Dimer 1.59 H Sodium Chloride Carbon Dioxide Anion Gap BUN Creatinine Glucose Calcium Phosphorus Magnesium TIBC Unsat Iron Binding Transferrin % Sat Ferritin GGT AST Alkaline Phosphatase Lactate Dehydrogenase Total Protein Albumin Albumin/Globulin Ratio Homocysteine Cardiovas TSH Free T3 pg/mL Urine Protein 100 A Urine Occult Blood 0.03 A Ur Leukocyte Esterase 500 A Urine RBC 17 H Urine WBC > 182 H Ur Squamous Epith Cells 12 H Amorphous Crystals Few A Urine Bacteria Few A Hyaline Casts 3 H 05/31/18 05/31/18 05/31/18 16:34 16:34 16:34 WBC RBC 2.70 L Hgb 8.6 L Hct 26.1 L RDW MPV Gran % 90.1 H Lymph % (Auto) 5.8 L Gran # 9.2 H Lymph # (Auto) 0.6 L D-Dimer Sodium 128 L Chloride 90 L Carbon Dioxide Anion Gap BUN 46 H Creatinine 2.4 H Glucose 139 H Calcium 7.2 L Phosphorus Magnesium 0.7 L* TIBC 122 L Unsat Iron Binding < 20 L Transferrin % Sat 83 H Ferritin 1091.0 H GGT AST 44 H Alkaline Phosphatase 146 H Lactate Dehydrogenase Total Protein Albumin 3.0 L Albumin/Globulin Ratio 0.9 L Homocysteine Cardiovas TSH Free T3 pg/mL Urine Protein Urine Occult Blood Ur Leukocyte Esterase Urine RBC Urine WBC Ur Squamous Epith Cells Amorphous Crystals Urine Bacteria Hyaline Casts Meds: Medications Acetaminophen (Tylenol) 650 mg PO Q6HP PRN PRN Reason: PAIN/FEVER > 101 Last Admin: 06/01/18 07:50 Dose: 650 mg Documented by: Hydrocodone Bitart/Acetaminophen ([place] 5/325mg) 1 - 2 tab PO Q4HP PRN PRN Reason: Pain Last Admin: 06/03/18 13:06 Dose: 1 tab Documented by: Aspirin (Aspirin) 81 mg PO DAILY [facility] Last Admin: 06/03/18 08:13 Dose: 81 mg Documented by: Calcium/Vitamin D (Calcium W/Vit D3) 500 mg PO DAILY [facility] Last Admin: 06/03/18 08:21 Dose: 500 mg Documented by: Ceftriaxone Sodium (Rocephin) 1 gm IV Q24H [facility] Stop: 06/04/18 22:14 Last Admin: 06/02/18 20:58 Dose: 1 gm Documented by: Fish Oil (Fish Oil) 1,000 mg PO DAILY [facility] Last Admin: 06/03/18 08:21 Dose: 1,000 mg Documented by: Hyoscyamine (Levsin) 0.125 mg SL Q4HP PRN PRN Reason: Urinary Discomfort Sodium Chloride (Sodium Chloride 0.9%) 1,000 mls @ 150 mls/hr IV .Q6H40M [facility] Last Admin: 06/03/18 13:08 Dose: 150 mls/hr Documented by: Levothyroxine Sodium (Synthroid) 100 mcg PO QAMAC [facility] Last Admin: 06/03/18 07:29 Dose: 100 mcg Documented by: Loperamide HCl (Imodium) 2 mg PO PRN PRN PRN Reason: Diarrhea Last Admin: 06/03/18 08:21 Dose: 2 mg Documented by: Magnesium Oxide (Magnesium Oxide) 800 mg PO BIDD [facility] Last Admin: 06/03/18 08:13 Dose: 800 mg Documented by: Multivit/Ca Carb/B Cmplx/FA/Prenat (Diatx) 1 tab PO HS [facility] Last Admin: 06/02/18 20:58 Dose: 1 tab Documented by: Naloxone HCl (Narcan) 0.1 mg IV Q2MIN PRN PRN Reason: Opiate Reversal Nicotine (Nicoderm) 7 mg TOPICAL DAILY@1000 [facility] Last Admin: 06/03/18 08:21 Dose: 7 mg Documented by: Nortriptyline HCl (Pamelor) 30 mg PO [facility] Last Admin: 06/02/18 20:58 Dose: 30 mg Documented by: Omeprazole (Prilosec) 20 mg PO ACB [facility] Last Admin: 06/03/18 07:29 Dose: 20 mg Documented by: Ondansetron HCl (Zofran) 4 mg IV Q4HP PRN PRN Reason: Nausea And Vomiting Simvastatin (Zocor) 10 mg PO [facility] Last Admin: 06/02/18 20:58 Dose: 10 mg Documented by: Sodium Chloride (Saline Flush) 10 ml IV Q8 [facility] Last Admin: 06/03/18 13:10 Dose: Not Given Documented by: Sodium Chloride (Sodium Chloride) 1 gm PO BID [facility] Last Admin: 06/03/18 07:29 Dose: 1 gm Documented by: Thiamine HCl (Vitamin B1) 100 mg PO [facility] Last Admin: 06/02/18 20:58 Dose: 100 mg Documented by: Vitamin D (Vitamin D3) 1,000 unit PO DAILY [facility] Last Admin: 06/03/18 07:29 Dose: 1,000 unit Documented by: Medical - PN: A/P - Time Spent With Patient Total time spent is greater than 50% in coordination of care (as documented) at patient's floor/unit and/or counseling patient: - Narrative A/P Narrative: A: *Severe Hypomagnesemia, also Hyponatremia: -mg stable, due to poor oral intake and alcohol use, *Orthostatic: due to dehydration, etoh, *JEANETTE on CKD IV, oligoric, worsening: *Tobacco abuse: pt counselled *Malnutrition: encourage oral intake *Anemia, acute drop , acute blood loss anemia: -gastritis noted on endoscopy, stable *tachycardia -V/Q scan low prob *Chr Diarrhea/ IBS: stable, prn loperamide *JEANETTE on CKD IV: *Hypertension: *Hypothyroidism/Sick thyroid syndrome (lows tsh and t3, normal t4) *Decub wounds: Plan: -Continue to monitor on telemetry -Appreciate nephrology consult, no indication for dialysis at this point. creat continues to worsen, -Transfuse 2 units of blood, GI consulted, etiology of drop in hemoglobin? Due to hemodilution? Haptoglobin is normal, peripheral Path smear is negative, -Monitor electrolytes and replace as needed - -Hold Lovenox for now given acute drop in hemoglobin, await endoscopy results, plan for vq today. -hold BP meds for low normal BP -wound care consulted,not infected it seems, Dr Hoover following. 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 Medical - PN: Qual - VTE Deep Vein Thrombosis/Pulmonary Embolism Present on Admission: No
[2018-06-03] MEDS: FOLIC ACID/VITAMIN B COMP W-C 1 TAB TABLET PO SCH (21:59)
[2018-06-03] MEDS: NORTRIPTYLINE 10 MG CAPSULE PO SCH (21:59)
[2018-06-03] MEDS: cefTRIAXone 1 GM VIAL IV SCH (22:00)
[2018-06-03] MEDS: SIMVASTATIN 10 MG TABLET PO SCH (22:00)
[2018-06-03] MEDS: THIAMINE 100 MG TABLET PO SCH (22:00)
[2018-06-04] MEDS: 0.9 % SODIUM CHLORIDE 1,000 ML IV SCH ×3 (00:31→10:32)
[2018-06-04] MEDS: HYDROcodone/APAP 5/325MG TABLET PO PRN ×6 (03:38→23:51)
[2018-06-04] MEDS: 0.9 % SODIUM CHLORIDE 10 ML SYRINGE IV SCH ×3 (05:38→21:29)
[2018-06-04 06:22] LABS: Basophils # (Auto) 0 K/mcL (0.0-0.3); Basophils % (Auto) 0 % (0.0-2.0); Eosinophils # (Auto) 0 K/mcL (0.0-0.7); Eosinophils % (Auto) 0.1 % (0.0-7.0); Granulocytes % (Auto) 83.7 % (38.0-78.0); Lymphocytes # (Auto) 0.9 K/mcL (1.5-4.8); Lymphocytes % (Auto) 9.7 % (15.5-49.0); Mean Cell Volume 96.8 fL (80.0-100.0); Mean Corpuscular HGB Conc 32.3 g/dL (31.0-36.0); Monocytes # (Auto) 0.6 K/mcL (0.1-0.9); Monocytes % (Auto) 6.5 % (1.0-12.0); Platelet Count 159 K/mcL (140-440); RBC 3.09 M/mcL (4.00-5.20); Red Cell Distribution Width 15.8 % (11.5-14.5)
[2018-06-04 06:58] LABS: ALT/SGPT 29 U/l (0-40); Albumin 2.2 gm/dL (3.2-5.2); Albumin/Globulin Ratio 0.7 (1.0-2.3); Alkaline Phosphatase 140 U/L (39-117); Bilirubin,Direct < 0.2 mg/dL (0.0-0.3); Blood Urea Nitrogen 53 mg/dl (8-23); Gamma Glutamyl Transpeptidase 69 U/L (5-36); Uric Acid 5.5 mg/dL (2.5-8.0)
--- NOTE | 2018-06-04 07:06 | Nephrology Progress Note ---
Subjective Patient information: Note initiated : 06/04/18 at 7:04 am Patient: Libby Candelaira 78 y/o F admitted on 05/31/18 for fall, hit chest and chin. Chief Complaint: Weakness Principal diagnosis: Acute kidney injury Pertinent ROS: Weakness No nausea No chest pain No abdominal pain No edema Objective - Vital Signs Vital signs: Vital Signs Temp Pulse Pulse Resp BP BP Pulse Ox 06/04/18 03:48 98.1 F 109 H 20 106/74 97 06/03/18 20:57 106 H 97 06/03/18 19:56 97.4 F 18 115/77 94 06/03/18 19:28 77 L 06/03/18 16:00 98.4 F 20 94/64 94 06/03/18 12:00 97.5 F 112 H 20 102/71 98 06/03/18 08:00 98.2 F 118 H 18 116/70 95 Intake and Output 06/03/18 06/04/18 06/04/18 21:59 05:59 13:59 Intake Total 1240 1520 Output Total 100 100 Balance 1140 1420 Intake: IV 995 1000 Sodium Chloride 0.9% 1,000 ml @ 995 1000 150 mls/hr IV .Q6H40M [facility] Rx#: [id number] Oral 245 520 Output: Urine Catheter Amount 100 100 Other: Meal Dinner Percent of Meal Consumed 25% Feeding Ability Assist with Tray Set Up Urine Appearance Cloudy Sediment Urine Color Dark Yellow Stool Size Large Stool Color Brown Stool Consistency Liquid # of times incontinent of 1 Bowels Weight 123 lb Intake & Output: Intake & Output 06/03/18 06/04/18 06/04/18 21:59 05:59 13:59 Intake Total 1240 1520 Output Total 100 100 Balance 1140 1420 Weight 123 lb Intake: IV 995 1000 Sodium Chloride 0.9% 1,000 ml @ 995 1000 150 mls/hr IV .Q6H40M [facility] Rx#: [id number] Oral 245 520 Output: Urine Catheter Amount 100 100 Other: Meal Dinner Percent of Meal Consumed 25% Feeding Ability Assist with Tray Set Up Urine Appearance Cloudy Sediment Urine Color Dark Yellow Stool Size Large Stool Color Brown Stool Consistency Liquid # of times incontinent of 1 Bowels - General Appearance General appearance: appears started age, fatigue EENT: mucous membranes moist Neck: supple Respiratory: clear Cardiology: no edema Gastrointestinal: no tenderness Integumentary: warm and dry Neurologic: no focal deficit, alert and oriented x3 Musculoskeletal: no deformities Psychiatric: mood/affect appropriate, cooperative - Lab 06/04/18 03:35 06/04/18 03:35 Most recent lab results Calcium 8.7 mg/dl (8.6-10.4) 06/04/18 03:35 Phosphorus 5.4 mg/dL (2.7-4.5) H 06/04/18 03:35 Magnesium 1.9 mg/dL (1.6-2.5) 06/04/18 03:35 Assessment and Plan (1) Acute on chronic renal failure Libby Candelaria is a 78-year-old female with hypertension, hyperlipidemia, hypothyroidism, chronic kidney disease stage 3, left renal artery stenosis s/p stent, chronic hyponatremia, admitted on 05/31/18 after a fall at home. She has been dizzy for several days. She has been on Sodium chloride 1 gram twice daily, Furosemide 20 mg daily and Lisinopril 40 mg daily and Amlodipine 10 mg daily at home. Acute kidney injury on chronic kidney disease stage 3 associated with acute Proteus cystitis, initial hyponatremia and hypomagnesemia, likely acute tubular necrosis associated with prolonged dehydration with diuretic and ACEI use, present on arrival. There is no recent history of IV contrast administration or NSAID use. Work up: Urinalysis on 05/31/18: Yellow, Cloudy, pH 8.0, SG 1.011, protein 100, occult blood 0.03, leukocyte esterase 500. US Renal on 06/01/18: Multiple cysts in both kidneys which remain stable. Markedly diminished urine output from both kidneys. This may be due to acute kidney injury. Trace amount of free fluid adjacent to the capsule in both kidneys which is nonspecific but might be related to the recent injury. Progress: Urine output: 200 ml reported in the past 12 hours. Creatinine increased from 2.8 to 2.9 in the past 24 hours. Hyponatremia, resolved. Metabolic acidosis, improved. Plan: No acute hemodialysis need. Avoid NSAIDs, nephrotoxic medications and IV contrast. Monitor BMP and urine output. Status: Acute Priority: High Qualifiers: Acute renal failure type: with acute tubular necrosis Chronic kidney disease stage: stage 3 (moderate) Qualified Code(s): N17.0 - Acute kidney failure with tubular necrosis; N18.3 - Chronic kidney disease, stage 3 (mod erate) (2) Metabolic acidosis Please see above Status: Acute Priority: Medium
[2018-06-04] MEDS: LEVOTHYROXINE 100 MCG TABLET PO SCH (07:21)
[2018-06-04] MEDS: OMEPRAZOLE 20 MG CAPSULE PO SCH (07:21)
[2018-06-04] MEDS ORDERED: LORazepam 0.5 MG TABLET PO PRN (07:43)
--- NOTE | 2018-06-04 07:43 | Internal Med Progress Note ---
Medical - PN: Subj Patient information: Note initiated : 06/04/18 at 7:33 am Service Date, if different from initiated Date: [] Patient: Libby Candelaria a 78 y/o F admitted on 05/31/18 for fall, hit chest and chin. Chief Complaint: [] Interval history: Ms. Candelaria is a 78 year old F who lives by herself, history of heavy alcohol use, smoker presents to the hospital for evaluation of fall. The patient notes that she has not been feeling well over the last 2 weeks, she has been getting dizzy whenever she stands up. She has seen a primary care provider for same who had cut back on her blood pressure medications. Today she stood up from sitting position and walked a few steps and then fell forward face down. She presented to the hospital for further evaluation because of this. She injured her lips and her dentures. The patient denies any headache loss of consciousness denies any palpitations chest pain shortness of breath nausea or belly pain vomiting or constipation. She admits to having chronic diarrhea for the last few years. The patient notes that she has not been eating and drinking well for the last few weeks notes that dizziness prevents her from doing much, she also lives by herself and does not feel like cooking for herself. The patient takes a magnesium supplement according to her. The patient has been admitted in the past with a diagnosis of hypophosphatemia hypokalemia and hypomagnesemia. On presentation to the emergency room patient was afebrile, tachycardic with heart rate 110-120, stable blood pressure maintaining oxygen saturation more than 90% on room air. Labs showed WBC count of 10.2 hemoglobin 8.6, MCV 96 platelets 217 sodium 128 potassium 4.6 bicarbonate 24 creatinine 2.4 glucose 139, calcium 7.2 albumin 3.0 magnesium 0.7. Reticulocyte count is 1.0, haptoglobin 123, iron 102, TIBC 122, ferritin 1091, iron saturation 83%, B12 level is 447, folic acid 5.3 Given patient has critically low magnesium, symptomatic orthostatic dizziness, fall, acute renal failure patient is being admitted to the hospital for further management 06/01 Patient seen and examined, no acute overnight events. Patient doing well, magnesium still low, continue oral and IV replacement. Patient has not had any bowel movements yet. Hemoglobin trending down as expected after IV fluids. I would expect the patient would likely need blood transfusion tomorrow. Workup for anemia is negative so far. Pt renal function did not improve significantly, bp on the lower end, and pt not making much urine, nephrology consulted. 06/02 Patient seen and examined, no acute overnight events. Patient's blood pressure has been a bit soft. Patient's hemoglobin this morning is 6.3, no evidence of melena or bright red blood stools reported however given acute drop we will transfuse 2 units. Work up so far negative gastroenterology has been consulted. CT chest abdomen and pelvis is negative for any intra-peritoneal bleed retroperitoneal bleed Nephrology following no indication for dialysis 06/03 Pt seen examined, no acute issues, remains tachcyardic, off oxygen EGD shows gastritis, likely source of dropped hb, no colonosocpy planned for now off hep given gi bleed? VQ scan today to r/o PE, Hb rise is appropriate after transfusion. pt wants to go home today, notes her son will take care of her, 06/04 Slept okay but did have interruptions. Otherwise no events overnight. Has a mild productive cough of yellow sputum, mild shortness of breath. She states she runs 90% on oxygen at home on room air. Is not on any inhalers at home. Review of Systems: denies headache/fever/chills/nausea/vomiting/abdominal paindiarrhea. Otherwise see above. - Constitutional Vitals: Vital Signs Temp Pulse Resp BP Pulse Ox 98.1 F 109 H 20 106/74 97 06/04/18 03:48 06/04/18 03:48 06/04/18 03:48 06/04/18 03:48 06/04/18 03:48 Period Temp Pulse Resp BP Sys/Marques Pulse Ox Last 24 Hr 97.4 F-98.4 F 106-118 18-20 94-116/64-77 77-98 Intake and Output 06/03/18 06/04/18 06/04/18 21:59 05:59 13:59 Intake Total 1240 1520 Output Total 100 100 Balance 1140 1420 Weight 55.792 kg Intake & Output: Intake & Output 06/03/18 06/04/18 06/04/18 21:59 05:59 13:59 Intake Total 1240 1520 Output Total 100 100 Balance 1140 1420 Weight 55.792 kg Intake: IV 995 1000 Sodium Chloride 0.9% 1,000 ml @ 995 1000 150 mls/hr IV .Q6H40M [facility] Rx#: [id number] Oral 245 520 Output: Urine Catheter Amount 100 100 Other: Meal Dinner Percent of Meal Consumed 25% Feeding Ability Assist with Tray Set Up Urine Appearance Cloudy Sediment Urine Color Dark Yellow Stool Size Large Stool Color Brown Stool Consistency Liquid # of times incontinent of 1 Bowels Exam: General: Alert, Awake, No acute Distress Eyes/N/T: EOMI, Head/Neck: neck supple, CV: mildly Tachycardia but regular, No murmurs, Pulm: mild rhonchi right base, occasional wheez, Abd: soft, nontender, +BS x4 Ext: no clubbing/cyanosis, 1+ b/l LE edema Neuro: Alert, no focal deficits, moves all extremities, Skin: warm/dry Medical - PN: Obj Da - Labs CBC & Chem 7: 06/04/18 03:35 06/04/18 03:35 Labs: Abnormal Lab Results 06/04/18 06/04/18 06/03/18 03:35 03:35 03:10 WBC RBC 3.09 L Hgb 9.7 L Hct 29.9 L RDW 15.8 H MPV Gran % 83.7 H Lymph % (Auto) 9.7 L Gran # Lymph # (Auto) 0.9 L Sodium 132 L Carbon Dioxide 19 L 17 L Anion Gap BUN 53 H 54 H Creatinine 2.9 H 2.8 H Glucose 122 H Calcium 8.3 L Phosphorus 5.4 H 4.9 H GGT 69 H 76 H AST 61 H 103 H Alkaline Phosphatase 140 H 161 H Lactate Dehydrogenase 257 H 321 H Total Protein 5.3 L 5.6 L Albumin 2.2 L 2.4 L Albumin/Globulin Ratio 0.7 L 0.8 L Homocysteine Cardiovas Free T3 pg/mL Urine Protein Urine Occult Blood Ur Leukocyte Esterase Urine RBC Urine WBC 06/03/18 06/02/18 06/02/18 03:10 03:35 03:35 WBC 12.3 H 12.9 H RBC 3.29 L 1.94 L Hgb 10.3 L 6.3 L* Hct 31.3 L 19.0 L* RDW 15.7 H MPV 10.7 H Gran % 85.1 H 91.6 H Lymph % (Auto) 7.9 L 3.8 L Gran # 10.4 H 11.8 H Lymph # (Auto) 1.0 L 0.5 L Sodium Carbon Dioxide 18 L Anion Gap 17.0 H BUN 49 H Creatinine 2.5 H Glucose 176 H Calcium 7.6 L Phosphorus GGT 69 H AST 43 H Alkaline Phosphatase 123 H Lactate Dehydrogenase 318 H Total Protein 5.1 L Albumin 2.3 L Albumin/Globulin Ratio 0.8 L Homocysteine Cardiovas Free T3 pg/mL Urine Protein Urine Occult Blood Ur Leukocyte Esterase Urine RBC Urine WBC 06/01/18 06/01/18 06/01/18 19:57 16:38 04:30 WBC RBC Hgb Hct RDW MPV Gran % Lymph % (Auto) Gran # Lymph # (Auto) Sodium Carbon Dioxide Anion Gap BUN Creatinine Glucose Calcium Phosphorus GGT AST Alkaline Phosphatase Lactate Dehydrogenase Total Protein Albumin Albumin/Globulin Ratio Homocysteine Cardiovas 28.6 H Free T3 pg/mL 1.8 L Urine Protein 100 A Urine Occult Blood 0.03 A Ur Leukocyte Esterase 500 A Urine RBC > 182 H Urine WBC > 182 H Meds: Medications Acetaminophen (Tylenol) 650 mg PO Q6HP PRN PRN Reason: PAIN/FEVER > 101 Last Admin: 06/01/18 07:50 Dose: 650 mg Documented by: Hydrocodone Bitart/Acetaminophen ([place] 5/325mg) 1 - 2 tab PO Q4HP PRN PRN Reason: Pain Last Admin: 06/04/18 03:38 Dose: 1 tab Documented by: Aspirin (Aspirin) 81 mg PO DAILY [facility] Last Admin: 06/03/18 08:13 Dose: 81 mg Documented by: Calcium/Vitamin D (Calcium W/Vit D3) 500 mg PO DAILY [facility] Last Admin: 06/03/18 08:21 Dose: 500 mg Documented by: Ceftriaxone Sodium (Rocephin) 1 gm IV Q24H [facility] Stop: 06/04/18 22:14 Last Admin: 06/03/18 22:00 Dose: 1 gm Documented by: Fish Oil (Fish Oil) 1,000 mg PO DAILY [facility] Last Admin: 06/03/18 08:21 Dose: 1,000 mg Documented by: Hyoscyamine (Levsin) 0.125 mg SL Q4HP PRN PRN Reason: Urinary Discomfort Sodium Chloride (Sodium Chloride 0.9%) 1,000 mls @ 150 mls/hr IV .Q6H40M [facility] Last Admin: 06/04/18 03:46 Dose: 150 mls/hr Documented by: Levothyroxine Sodium (Synthroid) 100 mcg PO QAMAC [facility] Last Admin: 06/04/18 07:21 Dose: 100 mcg Documented by: Loperamide HCl (Imodium) 2 mg PO PRN PRN PRN Reason: Diarrhea Last Admin: 06/03/18 17:29 Dose: 2 mg Documented by: Magnesium Oxide (Magnesium Oxide) 800 mg PO BIDD [facility] Last Admin: 06/03/18 16:48 Dose: 800 mg Documented by: Multivit/Ca Carb/B Cmplx/FA/Prenat (Diatx) 1 tab PO [facility] Last Admin: 06/03/18 21:59 Dose: 1 tab Documented by: Naloxone HCl (Narcan) 0.1 mg IV Q2MIN PRN PRN Reason: Opiate Reversal Nicotine (Nicoderm) 7 mg TOPICAL DAILY@1000 [facility] Last Admin: 06/03/18 08:21 Dose: 7 mg Documented by: Nortriptyline HCl (Pamelor) 30 mg PO [facility] Last Admin: 06/03/18 21:59 Dose: 30 mg Documented by: Omeprazole (Prilosec) 20 mg PO ACB [facility] Last Admin: 06/04/18 07:21 Dose: 20 mg Documented by: Ondansetron HCl (Zofran) 4 mg IV Q4HP PRN PRN Reason: Nausea And Vomiting Simvastatin (Zocor) 10 mg PO [facility] Last Admin: 06/03/18 22:00 Dose: 10 mg Documented by: Sodium Chloride (Saline Flush) 10 ml IV Q8 [facility] Last Admin: 06/04/18 05:38 Dose: Not Given Documented by: Sodium Chloride (Sodium Chloride) 1 gm PO BID [facility] Last Admin: 06/03/18 22:00 Dose: 1 gm Documented by: Thiamine HCl (Vitamin B1) 100 mg PO [facility] Last Admin: 06/03/18 22:00 Dose: 100 mg Documented by: Vitamin D (Vitamin D3) 1,000 unit PO DAILY [facility] Last Admin: 06/03/18 07:29 Dose: 1,000 unit Documented by: Medical - PN: A/P - Time Spent With Patient Total time spent is greater than 50% in coordination of care (as documented) at patient's floor/unit and/or counseling patient: - Narrative A/P Narrative: A: *Severe Hypomagnesemia, also Hyponatremia: improved -mg stable, due to poor oral intake and alcohol use, *Orthostatic: due to dehydration, etoh, * UTI (Proteus): *JEANETTE on CKD IV, oligoric, worsening: likely ATN *Malnutrition: encourage oral intake *Anemia, acute drop , acute blood loss anemia: -s/p 2 PRBC -gastritis noted on endoscopy, stable *mild sinus tachycardia -V/Q scan low prob *Chr Diarrhea/ IBS: stable, prn loperamide *Hypertension: home meds norvasc/lasix/lisinopril *Hypothyroidism/Sick thyroid syndrome (lows tsh and t3, normal t4) *Tobacco abuse: pt counselled *Anxiety *Decub wounds: Plan: -decrease IVF -Appreciate nephrology consult, no indication for dialysis at this point. creat continues to worsen, -Monitor electrolytes and replace as needed -cont Rocephin -hold BP meds for low normal BP -wound care following, not infected it seems, Dr Hoover following. -Box Stapler -case discussed with Hematology, f/u outpt for high iron saturation -Smoking cessation counseling -pt/ot -ppx: scd (lovenox held for gastritis bleeding)/PPI Medical - PN: Qual - VTE Deep Vein Thrombosis/Pulmonary Embolism Present on Admission: No
[2018-06-04] MEDS: ASPIRIN 81 MG TAB.CHEW PO SCH (08:23)
[2018-06-04] MEDS: FISH OIL 1,000 MG CAPSULE PO SCH (08:23)
[2018-06-04] MEDS: CALCIUM W/VIT D3 500 MG TABLET PO SCH (08:23)
[2018-06-04] MEDS: MAGNESIUM OXIDE 400 MG TABLET PO SCH ×3 (08:23→21:13)
[2018-06-04] MEDS: VITAMIN D3 1,000 UNIT TABLET PO SCH (08:24)
[2018-06-04] MEDS: SODIUM CHLORIDE 1 GM TABLET PO SCH ×2 (08:24→21:13)
[2018-06-04] MEDS: NICOTINE 7 MG PATCH TOPICAL SCH (11:43)
[2018-06-04] MEDS: LIDOCAINE PATCH TOPICAL SCH ×2 (11:44→22:15)
[2018-06-04] MEDS ORDERED: 0.9 % SODIUM CHLORIDE 1,000 ML IV SCH (11:45)
--- NOTE | 2018-06-04 16:23 | XRay Report ---
HISTORY: Dyspnea FINDINGS: Patient has developed severe infiltrates throughout both lungs. There is complete atelectasis of the right middle lobe and near complete left lower lobe atelectasis. There is moderate consolidation of the right lower lobe with milder involvement in the lingula and both upper lobes. These have become significantly worse since the recent chest CT done on 06/02/18. Small bilateral pleural effusions are present. The heart does not appear to be enlarged. The pulmonary vasculature cannot be evaluated. There is calcification in the aorta and subclavian arteries. IMPRESSION: Worsening bilateral infiltrates. This could be a combination of pneumonia, atelectasis, pulmonary vascular congestion and ARDS. Interpreted and Authenticated by: Alli Klein 06/04/18
[2018-06-04] MEDS ORDERED: ALBUMIN HUMAN 12.5 GM/50 ML BAG IV ONE (17:05)
[2018-06-04] MEDS ORDERED: FUROSEMIDE 40 MG/4 ML VIAL IV ONE ×2 (17:42→17:43)
[2018-06-04] MEDS ORDERED: ALBUMIN HUMAN 50 ML IV ONE (17:42)
[2018-06-04 18:50] LABS: proBNP > 70000.0 pg/ml (0-450)
[2018-06-04] MEDS: FOLIC ACID/VITAMIN B COMP W-C 1 TAB TABLET PO SCH (21:12)
[2018-06-04] MEDS: SIMVASTATIN 10 MG TABLET PO SCH (21:12)
[2018-06-04] MEDS: NORTRIPTYLINE 10 MG CAPSULE PO SCH (21:13)
[2018-06-04] MEDS: FAMOTIDINE 20 MG TABLET PO SCH (21:13)
[2018-06-04] MEDS: THIAMINE 100 MG TABLET PO SCH (21:13)
[2018-06-04] MEDS: cefTRIAXone 1 GM VIAL IV SCH (21:21)
[2018-06-05] MEDS: HYDROcodone/APAP 5/325MG TABLET PO PRN ×4 (04:54→22:47)
[2018-06-05 05:20] LABS: Basophils # (Auto) 0 K/mcL (0.0-0.3); Basophils % (Auto) 0.1 % (0.0-2.0); Eosinophils # (Auto) 0 K/mcL (0.0-0.7); Eosinophils % (Auto) 0.6 % (0.0-7.0); Granulocytes % (Auto) 80.4 % (38.0-78.0); Lymphocytes # (Auto) 0.8 K/mcL (1.5-4.8); Lymphocytes % (Auto) 8.7 % (15.5-49.0); Mean Cell Volume 95.6 fL (80.0-100.0); Mean Corpuscular HGB Conc 32.6 g/dL (31.0-36.0); Monocytes # (Auto) 0.9 K/mcL (0.1-0.9); Monocytes % (Auto) 10.2 % (1.0-12.0); Platelet Count 162 K/mcL (140-440); RBC 3.18 M/mcL (4.00-5.20); Red Cell Distribution Width 15.7 % (11.5-14.5)
[2018-06-05 05:48] LABS: ALT/SGPT 28 U/l (0-40); Albumin 2.3 gm/dL (3.2-5.2); Albumin/Globulin Ratio 0.7 (1.0-2.3); Alkaline Phosphatase 138 U/L (39-117); Bilirubin,Direct < 0.2 mg/dL (0.0-0.3); Blood Urea Nitrogen 54 mg/dl (8-23); Gamma Glutamyl Transpeptidase 64 U/L (5-36); Uric Acid 5.5 mg/dL (2.5-8.0)
[2018-06-05] MEDS: 0.9 % SODIUM CHLORIDE 10 ML SYRINGE IV SCH ×3 (06:34→22:00)
[2018-06-05] MEDS: LEVOTHYROXINE 100 MCG TABLET PO SCH (06:34)
--- NOTE | 2018-06-05 07:13 | Nephrology Progress Note ---
Subjective Patient information: Note initiated : 06/05/18 at 7:10 am Patient: Libby Candelaria 78 y/o F admitted on 05/31/18 for fall, hit chest and chin. Chief Complaint: Weakness Principal diagnosis: Acute kidney injury Pertinent ROS: Weakness No nausea No chest pain No abdominal pain No edema Objective - Vital Signs Vital signs: Vital Signs Temp Pulse Pulse Resp BP Pulse Ox 06/05/18 03:45 99.3 F H 16 105/69 100 06/04/18 23:22 99.3 F H 15 111/77 94 06/04/18 22:20 99 06/04/18 20:00 99 06/04/18 18:32 98.7 F 20 126/73 99 06/04/18 18:20 117 H 99 06/04/18 16:05 106/74 06/04/18 16:00 97.4 F 18 106/74 91 06/04/18 12:21 118/72 06/04/18 12:00 98.7 F 18 118/77 97 06/04/18 08:10 102 H 115/70 06/04/18 08:00 98.0 F 22 115/70 94 Intake and Output 06/04/18 06/05/18 06/05/18 21:59 05:59 13:59 Intake Total 836 200 Output Total 130 90 Balance 706 110 Intake: IV 196 Sodium Chloride 0.9% 1,000 ml @ 196 70 mls/hr IV .[id number] [facility] Rx#: [id number] Oral 640 200 Output: Urine Catheter Amount 130 90 Other: Meal Dinner snack Percent of Meal Consumed 50% Urine Appearance Cloudy Clear Uretheral ([place]) Cloudy Urine Color Dark Yellow Dark Yellow Uretheral ([place]) Dark Yellow Weight 135 lb 8 oz Intake & Output: Intake & Output 06/04/18 06/05/18 06/05/18 21:59 05:59 13:59 Intake Total 836 200 Output Total 130 90 Balance 706 110 Weight 135 lb 8 oz Intake: IV 196 Sodium Chloride 0.9% 1,000 ml @ 196 70 mls/hr IV .[id number] [facility] Rx#: [id number] Oral 640 200 Output: Urine Catheter Amount 130 90 Other: Meal Dinner snack Percent of Meal Consumed 50% Urine Appearance Cloudy Clear Uretheral ([place]) Cloudy Urine Color Dark Yellow Dark Yellow Uretheral ([place]) Dark Yellow - General Appearance General appearance: appears started age, fatigue EENT: mucous membranes moist Neck: supple Respiratory: clear Cardiology: no edema Gastrointestinal: no tenderness Integumentary: warm and dry Neurologic: no focal deficit, alert and oriented x3 Musculoskeletal: no deformities Psychiatric: mood/affect appropriate, cooperative - Lab 06/05/18 03:25 06/05/18 03:25 Most recent lab results Calcium 9.0 mg/dl (8.6-10.4) 06/05/18 03:25 Phosphorus 5.1 mg/dL (2.7-4.5) H 06/05/18 03:25 Magnesium 1.9 mg/dL (1.6-2.5) 06/05/18 03:25 Assessment and Plan (1) Acute on chronic renal failure Libby Candelaria is a 78-year-old female with hypertension, hyperlipidemia, hypothyroidism, chronic kidney disease stage 3, left renal artery stenosis s/p stent, chronic hyponatremia, admitted on 05/31/18 after a fall at home. She has been dizzy for several days. She has been on Sodium chloride 1 gram twice daily, Furosemide 20 mg daily and Lisinopril 40 mg daily and Amlodipine 10 mg daily at home. Acute kidney injury on chronic kidney disease stage 3 associated with acute Proteus cystitis, initial hyponatremia and hypomagnesemia, likely acute tubular necrosis associated with prolonged dehydration with diuretic and ACEI use, present on arrival. There is no recent history of IV contrast administration or NSAID use. Work up: Urinalysis on 05/31/18: Yellow, Cloudy, pH 8.0, SG 1.011, protein 100, occult blood 0.03, leukocyte esterase 500. US Renal on 06/01/18: Multiple cysts in both kidneys which remain stable. Markedly diminished urine output from both kidneys. This may be due to acute kidney injury. Trace amount of free fluid adjacent to the capsule in both kidneys which is nonspecific but might be related to the recent injury. Progress: Urine output: 220 ml reported in the past 12 hours. Creatinine increased from 2.9 to 3.0 in the past 24 hours. Hyponatremia, resolved. Metabolic acidosis, worse. Plan: Sodium Chloride changed to Sodium Bicarbonate 1300 mg PO TID. No acute hemodialysis need. Avoid NSAIDs, nephrotoxic medications and IV contrast. Monitor BMP and urine output. Status: Acute Priority: High Qualifiers: Acute renal failure type: with acute tubular necrosis Chronic kidney disease stage: stage 3 (moderate) Qualified Code(s): N17.0 - Acute kidney failure with tubular necrosis; N18.3 - Chronic kidney disease, stage 3 (moderate) (2) Metabolic acidosis Please see above Status: Acute Priority: Medium
--- NOTE | 2018-06-05 07:22 | Internal Med Progress Note ---
Medical - PN: Subj Patient information: Note initiated : 06/05/18 at 7:11 am Service Date, if different from initiated Date: [] Patient: Libby Candelaria a 78 y/o F admitted on 05/31/18 for fall, hit chest and chin. Chief Complaint: [] Interval history: Ms. Candelaria is a 78 year old F who lives by herself, history of heavy alcohol use, smoker presents to the hospital for evaluation of fall. The patient notes that she has not been feeling well over the last 2 weeks, she has been getting dizzy whenever she stands up. She has seen a primary care provider for same who had cut back on her blood pressure medications. Today she stood up from sitting position and walked a few steps and then fell forward face down. She presented to the hospital for further evaluation because of this. She injured her lips and her dentures. The patient denies any headache loss of consciousness denies any palpitations chest pain shortness of breath nausea or belly pain vomiting or constipation. She admits to having chronic diarrhea for the last few years. The patient notes that she has not been eating and drinking well for the last few weeks notes that dizziness prevents her from doing much, she also lives by herself and does not feel like cooking for herself. The patient takes a magnesium supplement according to her. The patient has been admitted in the past with a diagnosis of hypophosphatemia hypokalemia and hypomagnesemia. On presentation to the emergency room patient was afebrile, tachycardic with heart rate 110-120, stable blood pressure maintaining oxygen saturation more than 90% on room air. Labs showed WBC count of 10.2 hemoglobin 8.6, MCV 96 platelets 217 sodium 128 potassium 4.6 bicarbonate 24 creatinine 2.4 glucose 139, calcium 7.2 albumin 3.0 magnesium 0.7. Reticulocyte count is 1.0, haptoglobin 123, iron 102, TIBC 122, ferritin 1091, iron saturation 83%, B12 level is 447, folic acid 5.3 Given patient has critically low magnesium, symptomatic orthostatic dizziness, fall, acute renal failure patient is being admitted to the hospital for further management 06/01 Patient seen and examined, no acute overnight events. Patient doing well, magnesium still low, continue oral and IV replacement. Patient has not had any bowel movements yet. Hemoglobin trending down as expected after IV fluids. I would expect the patient would likely need blood transfusion tomorrow. Workup for anemia is negative so far. Pt renal function did not improve significantly, bp on the lower end, and pt not making much urine, nephrology consulted. 06/02 Patient seen and examined, no acute overnight events. Patient's blood pressure has been a bit soft. Patient's hemoglobin this morning is 6.3, no evidence of melena or bright red blood stools reported however given acute drop we will transfuse 2 units. Work up so far negative gastroenterology has been consulted. CT chest abdomen and pelvis is negative for any intra-peritoneal bleed retroperitoneal bleed Nephrology following no indication for dialysis 06/03 Pt seen examined, no acute issues, remains tachcyardic, off oxygen EGD shows gastritis, likely source of dropped hb, no colonosocpy planned for now off hep given gi bleed? VQ scan today to r/o PE, Hb rise is appropriate after transfusion. pt wants to go home today, notes her son will take care of her, 06/04 Slept okay but did have interruptions. Otherwise no events overnight. Has a mild productive cough of yellow sputum, mild shortness of breath. She states she runs 90% on oxygen at home on room air. Is not on any inhalers at home. 06/05 Patient denies cough. Denies shortness of breath at rest currently. Has a mild cough white sputum. Increased oxygen need yesterday with chest x-ray showing pulmonary edema, significant fluid balance positive. Trial of 40 of IV Lasix without effect. IV's fluids stopped yesterday, oxygen able to be weaned down this morning back to 2 L. She was on room air temporarily but sats dropped. Review of Systems: denies headache/fever/chills/nausea/vomiting/abdominal pain/diarrhea. Otherwise see above. - Constitutional Vitals: Vital Signs Temp Pulse Resp BP Pulse Ox 99.3 F H 111 H 16 105/69 100 06/05/18 03:45 06/05/18 06:56 06/05/18 03:45 06/05/18 03:45 06/05/18 03:45 Period Temp Pulse Resp BP Sys/Marques Pulse Ox Last 24 Hr 97.4 F-99.3 F 102-117 15-22 105-126/69-77 91-100 Intake and Output 06/04/18 06/05/18 06/05/18 21:59 05:59 13:59 Intake Total 836 200 Output Total 130 90 Balance 706 110 Weight 61.462 kg Intake & Output: Intake & Output 06/04/18 06/05/18 06/05/18 21:59 05:59 13:59 Intake Total 836 200 Output Total 130 90 Balance 706 110 Weight 61.462 kg Intake: IV 196 Sodium Chloride 0.9% 1,000 ml @ 196 70 mls/hr IV .[id number] [facility] Rx#: [id number] Oral 640 200 Output: Urine Catheter Amount 130 90 Other: Meal Dinner snack Percent of Meal Consumed 50% Urine Appearance Cloudy Clear Clear Uretheral ([place]) Cloudy Clear Urine Color Dark Yellow Dark Yellow Pale Uretheral ([place]) Dark Yellow Pale Exam: General: Alert, Awake, No acute Distress Eyes/N/T: EOMI, JVD Head/Neck: neck supple, CV: mildly Tachycardia but regular, No murmurs, Pulm: mild exp wheeze, course, Abd: soft, nontender, +BS x4 Ext: no clubbing/cyanosis, 1-2+ RLE edema with chronic component, no edema LLE Neuro: Alert, no focal deficits, moves all extremities, Skin: warm/dry Medical - PN: Obj Da - Labs CBC & Chem 7: 06/05/18 03:25 06/05/18 03:25 Labs: Abnormal Lab Results 06/05/18 06/05/18 06/04/18 03:25 03:25 17:03 WBC RBC 3.18 L Hgb 9.9 L Hct 30.4 L RDW 15.7 H Gran % 80.4 H Lymph % (Auto) 8.7 L Gran # Lymph # (Auto) 0.8 L Sodium Carbon Dioxide 17 L BUN 54 H Creatinine 3.0 H Glucose Calcium Phosphorus 5.1 H GGT 64 H AST 46 H Alkaline Phosphatase 138 H Lactate Dehydrogenase 266 H NT-Pro-B Natriuret Pep > 67072.0 H Total Protein 5.5 L Albumin 2.3 L Albumin/Globulin Ratio 0.7 L Homocysteine Cardiovas 06/04/18 06/04/18 06/03/18 03:35 03:35 03:10 WBC RBC 3.09 L Hgb 9.7 L Hct 29.9 L RDW 15.8 H Gran % 83.7 H Lymph % (Auto) 9.7 L Gran # Lymph # (Auto) 0.9 L Sodium 132 L Carbon Dioxide 19 L 17 L BUN 53 H 54 H Creatinine 2.9 H 2.8 H Glucose 122 H Calcium 8.3 L Phosphorus 5.4 H 4.9 H GGT 69 H 76 H AST 61 H 103 H Alkaline Phosphatase 140 H 161 H Lactate Dehydrogenase 257 H 321 H NT-Pro-B Natriuret Pep Total Protein 5.3 L 5.6 L Albumin 2.2 L 2.4 L Albumin/Globulin Ratio 0.7 L 0.8 L Homocysteine Cardiovas 06/03/18 06/01/18 03:10 16:38 WBC 12.3 H RBC 3.29 L Hgb 10.3 L Hct 31.3 L RDW 15.7 H Gran % 85.1 H Lymph % (Auto) 7.9 L Gran # 10.4 H Lymph # (Auto) 1.0 L Sodium Carbon Dioxide BUN Creatinine Glucose Calcium Phosphorus GGT AST Alkaline Phosphatase Lactate Dehydrogenase NT-Pro-B Natriuret Pep Total Protein Albumin Albumin/Globulin Ratio Homocysteine Cardiovas 28.6 H Meds: Medications Acetaminophen (Tylenol) 650 mg PO Q6HP PRN PRN Reason: PAIN/FEVER > 101 Last Admin: 06/01/18 07:50 Dose: 650 mg Documented by: Hydrocodone Bitart/Acetaminophen ([place] 5/325mg) 1 - 2 tab PO Q4HP PRN PRN Reason: Pain Last Admin: 06/05/18 06:33 Dose: 1 tab Documented by: Aspirin (Aspirin) 81 mg PO DAILY [facility] Last Admin: 06/04/18 08:23 Dose: 81 mg Documented by: Calcium/Vitamin D (Calcium W/Vit D3) 500 mg PO DAILY [facility] Last Admin: 06/04/18 08:23 Dose: 500 mg Documented by: Famotidine (Pepcid) 20 mg PO HS [facility] Last Admin: 06/04/18 21:13 Dose: 20 mg Documented by: Hyoscyamine (Levsin) 0.125 mg SL Q4HP PRN PRN Reason: Urinary Discomfort Levothyroxine Sodium (Synthroid) 100 mcg PO QAMAC [facility] Last Admin: 06/05/18 06:34 Dose: 100 mcg Documented by: Lidocaine (Lidoderm) 1 patch TOPICAL DAILY@1000 [facility] Last Admin: 06/04/18 11:44 Dose: 1 patch Documented by: Lidocaine (Lidoderm) 0 patch TOPICAL DAILY@2200 [facility] Last Admin: 06/04/18 22:15 Dose: Not Given Documented by: Loperamide HCl (Imodium) 2 mg PO PRN PRN PRN Reason: Diarrhea Last Admin: 06/03/18 17:29 Dose: 2 mg Documented by: Lorazepam (Ativan) 0.5 mg PO DAILYP PRN PRN Reason: Anxiety Magnesium Oxide (Magnesium Oxide) 400 mg PO BID [facility] Last Admin: 06/04/18 21:13 Dose: 400 mg Documented by: Multivit/Ca Carb/B Cmplx/FA/Prenat (Diatx) 1 tab PO [facility] Last Admin: 06/04/18 21:12 Dose: 1 tab Documented by: Naloxone HCl (Narcan) 0.1 mg IV Q2MIN PRN PRN Reason: Opiate Reversal Nicotine (Nicoderm) 7 mg TOPICAL DAILY@1000 [facility] Last Admin: 06/04/18 11:43 Dose: 7 mg Documented by: Nortriptyline HCl (Pamelor) 30 mg PO [facility] Last Admin: 06/04/18 21:13 Dose: 30 mg Documented by: Ondansetron HCl (Zofran) 4 mg IV Q4HP PRN PRN Reason: Nausea And Vomiting Last Admin: 06/04/18 22:34 Dose: 4 mg Documented by: Simvastatin (Zocor) 10 mg PO [facility] Last Admin: 06/04/18 21:12 Dose: 10 mg Documented by: Sodium Chloride (Saline Flush) 10 ml IV Q8 [facility] Last Admin: 06/05/18 06:34 Dose: 10 ml Documented by: Sodium Chloride (Sodium Chloride) 1 gm PO BID [facility] Last Admin: 06/04/18 21:13 Dose: 1 gm Documented by: Thiamine HCl (Vitamin B1) 100 mg PO [facility] Last Admin: 06/04/18 21:13 Dose: 100 mg Documented by: Medical - PN: A/P - Time Spent With Patient Total time spent is greater than 50% in coordination of care (as documented) at patient's floor/unit and/or counseling patient: - Narrative A/P Narrative: A: *JEANETTE on CKD IV, oligoric, worsening: likely ATN *Severe Hypomagnesemia, also Hyponatremia: improved -mg stable, due to poor oral intake and alcohol use, meds *Hypoxia: -2-4L NC, currently 4L *Pulm edema: lasix 40mg IVx1 w/o effect *Orthostatic initially: due to dehydration, etoh, * UTI ([place]): *Malnutrition: encourage oral intake *Anemia, acute drop , acute blood loss anemia: -s/p 2 PRBC -gastritis noted on endoscopy, stable *mild sinus tachycardia -V/Q scan low prob *Chr Diarrhea/ IBS: stable, prn loperamide *Hypertension: home meds norvasc/lasix/lisinopril *Hypothyroidism/Sick thyroid syndrome (lows tsh and t3, normal t4) *Tobacco abuse: pt counselled *Anxiety *Decub wounds: *Likely COPD given smoking history and CXR appearance: Plan: -echo pending report -Appreciate nephrology consult, no indication for dialysis at this point. creat continues to worsen, -will try higher dose IV lasix today -Monitor electrolytes and replace as needed; monitor magnesium closely given supplement and ckd. ppi a culprit for low mag, switched to H2 inhibitor. -cont Rocephin -IS -hold BP meds for low normal BP -wound care following, not infected it seems, Dr Hoover following. 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, f/u outpt for high iron saturation -Smoking cessation counseling -pt/ot -ppx: scd (lovenox held for gastritis bleeding)/H2 A: *Severe Hypomagnesemia, also Hyponatremia: improved -mg stable, due to poor oral intake and alcohol use, *Hypoxia: -2-4L NC, currently 2L *Orthostatic: due to dehydration, etoh, *UTI ([place]): *JEANETTE on CKD IV, oligoric, worsening: likely ATN *Pulmonary Edema: lasix 40mg IVx1 w/o effect *Malnutrition: encourage oral intake *Anemia, acute drop , acute blood loss anemia: -s/p 2 PRBC -gastritis noted on endoscopy, stable *mild sinus tachycardia -V/Q scan low prob *Chr Diarrhea/ IBS: stable, prn loperamide *Hypertension: home meds norvasc/lasix/lisinopril *Hypothyroidism/Sick thyroid syndrome (lows tsh and t3, normal t4) *Tobacco abuse: pt counselled *Anxiety *Decub wounds: Plan: -echo pending -Nephrology following, -Monitor electrolytes and replace as needed -cont Rocephin -hold BP meds for low normal BP -wound care following, not infected it seems, Dr Hoover following. 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
[2018-06-05] MEDS: ASPIRIN 81 MG TAB.CHEW PO SCH (08:53)
[2018-06-05] MEDS: CALCIUM W/VIT D3 500 MG TABLET PO SCH (08:53)
[2018-06-05] MEDS: SODIUM BICARBONATE 650 MG TABLET PO SCH ×3 (08:53→19:42)
[2018-06-05] MEDS: MAGNESIUM OXIDE 400 MG TABLET PO SCH ×2 (08:53→19:42)
[2018-06-05] MEDS ORDERED: MAGNESIUM OXIDE 400 MG TABLET PO SCH (09:00)
[2018-06-05] MEDS ORDERED: FUROSEMIDE 100 MG/10 ML VIAL IV ONE ×2 (09:18→18:00)
[2018-06-05] MEDS: LIDOCAINE PATCH TOPICAL SCH ×2 (09:40→22:00)
[2018-06-05] MEDS: NICOTINE 7 MG PATCH TOPICAL SCH (09:41)
[2018-06-05] MEDS ORDERED: cefTRIAXone 1 GM VIAL IV SCH (10:00)
[2018-06-05] MEDS ORDERED: hydrOXYzine 25 MG TABLET PO PRN (14:09)
[2018-06-05] MEDS ORDERED: FUROSEMIDE 40 MG/4 ML VIAL IV ONE (17:05)
[2018-06-05] MEDS: SIMVASTATIN 10 MG TABLET PO SCH (19:42)
[2018-06-05] MEDS: FOLIC ACID/VITAMIN B COMP W-C 1 TAB TABLET PO SCH (19:42)
[2018-06-05] MEDS: NORTRIPTYLINE 10 MG CAPSULE PO SCH (19:42)
[2018-06-05] MEDS: FAMOTIDINE 20 MG TABLET PO SCH (19:42)
[2018-06-05] MEDS ORDERED: METOPROLOL TARTRATE 5 MG/5 ML VIAL IV ONE (20:40)
[2018-06-05] MEDS ORDERED: diphenhydrAMINE 25 MG CAPSULE PO PRN (21:00)
[2018-06-05] MEDS: DOBUTamine 250 MG in PREMIX 1 BAG IV SCH (21:15)
[2018-06-05] MEDS: 0.9 % SODIUM CHLORIDE 250 ML IV SCH (21:17)
[2018-06-05] MEDS: THIAMINE 100 MG TABLET PO SCH (23:00)
[2018-06-06 05:46] LABS: ALT/SGPT 26 U/l (0-40); Albumin 2.4 gm/dL (3.2-5.2); Albumin/Globulin Ratio 0.8 (1.0-2.3); Alkaline Phosphatase 142 U/L (39-117); Bilirubin,Direct < 0.2 mg/dL (0.0-0.3); Blood Urea Nitrogen 60 mg/dl (8-23); Gamma Glutamyl Transpeptidase 63 U/L (5-36)
[2018-06-06] MEDS: 0.9 % SODIUM CHLORIDE 10 ML SYRINGE IV SCH ×3 (06:01→21:09)
--- NOTE | 2018-06-06 07:02 | Internal Med Progress Note ---
Medical - PN: Subj Patient information: Note initiated : 06/06/18 at 6:50 am Service Date, if different from initiated Date: [] Patient: Libby Candelaria a 78 y/o F admitted on 05/31/18 for fall, hit chest and chin. Chief Complaint: [] Interval history: Ms. Candelaria is a 78 year old F who lives by herself, history of heavy alcohol use, smoker presents to the hospital for evaluation of fall. The patient notes that she has not been feeling well over the last 2 weeks, she has been getting dizzy whenever she stands up. She has seen a primary care provider for same who had cut back on her blood pressure medications. Today she stood up from sitting position and walked a few steps and then fell forward face down. She presented to the hospital for further evaluation because of this. She injured her lips and her dentures. The patient denies any headache loss of consciousness denies any palpitations chest pain shortness of breath nausea or belly pain vomiting or constipation. She admits to having chronic diarrhea for the last few years. The patient notes that she has not been eating and drinking well for the last few weeks notes that dizziness prevents her from doing much, she also lives by herself and does not feel like cooking for herself. The patient takes a magnesium supplement according to her. The patient has been admitted in the past with a diagnosis of hypophosphatemia hypokalemia and hypomagnesemia. On presentation to the emergency room patient was afebrile, tachycardic with heart rate 110-120, stable blood pressure maintaining oxygen saturation more than 90% on room air. Labs showed WBC count of 10.2 hemoglobin 8.6, MCV 96 platelets 217 sodium 128 potassium 4.6 bicarbonate 24 creatinine 2.4 glucose 139, calcium 7.2 albumin 3.0 magnesium 0.7. Reticulocyte count is 1.0, haptoglobin 123, iron 102, TIBC 122, ferritin 1091, iron saturation 83%, B12 level is 447, folic acid 5.3 Given patient has critically low magnesium, symptomatic orthostatic dizziness, fall, acute renal failure patient is being admitted to the hospital for further management 06/01 Patient seen and examined, no acute overnight events. Patient doing well, magnesium still low, continue oral and IV replacement. Patient has not had any bowel movements yet. Hemoglobin trending down as expected after IV fluids. I would expect the patient would likely need blood transfusion tomorrow. Workup for anemia is negative so far. Pt renal function did not improve significantly, bp on the lower end, and pt not making much urine, nephrology consulted. 06/02 Patient seen and examined, no acute overnight events. Patient's blood pressure has been a bit soft. Patient's hemoglobin this morning is 6.3, no evidence of melena or bright red blood stools reported however given acute drop we will transfuse 2 units. Work up so far negative gastroenterology has been consulted. CT chest abdomen and pelvis is negative for any intra-peritoneal bleed retroperitoneal bleed Nephrology following no indication for dialysis 06/03 Pt seen examined, no acute issues, remains tachcyardic, off oxygen EGD shows gastritis, likely source of dropped hb, no colonosocpy planned for now off hep given gi bleed? VQ scan today to r/o PE, Hb rise is appropriate after transfusion. pt wants to go home today, notes her son will take care of her, 06/04 Slept okay but did have interruptions. Otherwise no events overnight. Has a mild productive cough of yellow sputum, mild shortness of breath. She states she runs 90% on oxygen at home on room air. Is not on any inhalers at home. 06/05 Patient denies cough. Denies shortness of breath at rest currently. Has a mild cough white sputum. Increased oxygen need yesterday with chest x-ray showing pulmonary edema, significant fluid balance positive. Trial of 40 of IV Lasix without effect. IV's fluids stopped yesterday, oxygen able to be weaned down this morning back to 2 L. She was on room air temporarily but sats dropped. Called and discussed the patient with her daughter Brianna Tesfaye, power of family law attorney POA. Given the recent finding is a poor cardiac status along with her poor response to treatment at this time felt it was important to discuss the patient's current circumstance. She is very tenuous given her severe multiorgan dysfunction including renal cardiac and pulmonary, along with her anemia and malnutrition. Per the daughter she started declining about a month ago and then about 2 weeks ago started rapidly declining. She was seen by her primary care provider and blood pressure medications were adjusted because she had lower blood pressures and some dizziness. She also had a decrease in her appetite and was not eating the food that her daughter had brought by. As well and having some falls. Regarding her alcohol intake, per her daughter she drinks 2 drinks of vodka each night, but not more. She is currently a full code but if things take a turn for the worse the daughter wants her to be home with family if it were to trend in that direction. Prognosis guarded at this point. 06/06 Believe she is at home in bed. Reported to nurse that she had a chance underskin last night. She slept well in the evening and then woke up at 10 PM and then was up for a while. She finally fell asleep again at 4 and woke it 830 this morning. She does admit to cough, productive. denies shortness of breath, is currently on room air. Review of Systems: denies headache/fever/chills/nausea/vomiting/abdominal pain/diarrhea. Otherwise see above. - Constitutional Vitals: Vital Signs Temp Pulse Resp BP Pulse Ox 98.2 F 108 H 20 103/58 91 06/06/18 04:02 06/05/18 19:10 06/06/18 04:02 06/06/18 06:00 06/06/18 04:15 Period Temp Pulse Resp BP Sys/Marques Pulse Ox Last 24 Hr 97.6 F-98.3 F 38-115 12-22 89-122/58-96 91-99 Intake and Output 06/05/18 06/06/18 06/06/18 21:59 05:59 13:59 Intake Total 205 100 167 Output Total 185 141 8 Balance 20 -41 159 Weight 62.823 kg Intake & Output: Intake & Output 06/05/18 06/06/18 06/06/18 21:59 05:59 13:59 Intake Total 205 100 167 Output Total 185 141 8 Balance 20 -41 159 Weight 62.823 kg Intake: IV 5 167 Sodium Chloride 0.9% 250 ml @ 4 136 20 mls/hr IV .[id number] JANNA Rx#: [id number] Dobutrex 250 mg In Premix 1 Bag 1 31 @ 1 MCG/KG/MIN 3.69 mls/hr IV .Q24H JANNA Rx#:[id number] Oral 200 100 Output: Urine Catheter Amount 185 141 8 Other: Meal Dinner Percent of Meal Consumed 40% Feeding Ability Independent Urine Appearance Clear Clear Clear Sediment Uretheral (Bentley) Clear Urine Color Bright Yellow Pale Pale Uretheral (Bentley) Bright Yellow Urine Odor Normal Normal Uretheral (Bentley) Normal Exam: General: Alert, Awake, No acute Distress Eyes/N/T: EOMI, JVD Head/Neck: neck supple, CV: mildly Tachycardia but regular, No murmurs, Pulm: mild exp wheeze, course, Abd: soft, nontender, +BS x4 Ext: no clubbing/cyanosis, b/l LE edema to trunk with chronic component, Neuro: Alert, no focal deficits, moves all extremities, oriented to self only Skin: warm/dry Medical - PN: Obj Da - Labs CBC & Chem 7: 06/05/18 03:25 06/06/18 04:00 Labs: Abnormal Lab Results 06/06/18 06/05/18 06/05/18 04:00 03:25 03:25 RBC 3.18 L Hgb 9.9 L Hct 30.4 L RDW 15.7 H Gran % 80.4 H Lymph % (Auto) 8.7 L Lymph # (Auto) 0.8 L Carbon Dioxide 19 L 17 L BUN 60 H 54 H Creatinine 3.1 H 3.0 H Phosphorus 5.0 H 5.1 H GGT 63 H 64 H AST 39 H 46 H Alkaline Phosphatase 142 H 138 H Lactate Dehydrogenase 266 H NT-Pro-B Natriuret Pep Total Protein 5.5 L 5.5 L Albumin 2.4 L 2.3 L Albumin/Globulin Ratio 0.8 L 0.7 L Homocysteine Cardiovas 06/04/18 06/04/18 06/04/18 17:03 03:35 03:35 RBC 3.09 L Hgb 9.7 L Hct 29.9 L RDW 15.8 H Gran % 83.7 H Lymph % (Auto) 9.7 L Lymph # (Auto) 0.9 L Carbon Dioxide 19 L BUN 53 H Creatinine 2.9 H Phosphorus 5.4 H GGT 69 H AST 61 H Alkaline Phosphatase 140 H Lactate Dehydrogenase 257 H NT-Pro-B Natriuret Pep > 90113.0 H Total Protein 5.3 L Albumin 2.2 L Albumin/Globulin Ratio 0.7 L Homocysteine Cardiovas 06/01/18 16:38 RBC Hgb Hct RDW Gran % Lymph % (Auto) Lymph # (Auto) Carbon Dioxide BUN Creatinine Phosphorus GGT AST Alkaline Phosphatase Lactate Dehydrogenase NT-Pro-B Natriuret Pep Total Protein Albumin Albumin/Globulin Ratio Homocysteine Cardiovas 28.6 H Meds: Medications Acetaminophen (Tylenol) 650 mg PO Q6HP PRN PRN Reason: PAIN/FEVER > 101 Last Admin: 06/01/18 07:50 Dose: 650 mg Documented by: Hydrocodone Bitart/Acetaminophen (Chaplin 5/325mg) 1 - 2 tab PO Q4HP PRN PRN Reason: Pain Last Admin: 06/05/18 22:47 Dose: 1 tab Documented by: Aspirin (Aspirin) 81 mg PO DAILY [facility] Last Admin: 06/05/18 08:53 Dose: 81 mg Documented by: Calcium/Vitamin D (Calcium W/Vit D3) 500 mg PO DAILY [facility] Last Admin: 06/05/18 08:53 Dose: 500 mg Documented by: Diphenhydramine HCl (Benadryl) 25 mg PO HSP PRN PRN Reason: Insomnia Famotidine (Pepcid) 20 mg PO HS [facility] Last Admin: 06/05/18 19:42 Dose: 20 mg Documented by: Hydroxyzine HCl (Atarax) 50 mg PO BIDP PRN PRN Reason: Anxiety Dobutamine HCl/Dextrose 250 mg (/ Premix) 250 mls @ 3.69 mls/hr IV .Q24H [facility]; Protocol Last Titration: 06/06/18 06:01 Dose: Infused Documented by: Sodium Chloride (Sodium Chloride 0.9%) 250 mls @ 20 mls/hr IV .[id number] [facility] Last Infusion: 06/06/18 06:01 Dose: Infused Documented by: Levothyroxine Sodium (Synthroid) 100 mcg PO QAMAC [facility] Last Admin: 06/05/18 06:34 Dose: 100 mcg Documented by: Lidocaine (Lidoderm) 1 patch TOPICAL DAILY@1000 [facility] Last Admin: 06/05/18 09:40 Dose: 1 patch Documented by: Lidocaine (Lidoderm) 0 patch TOPICAL DAILY@2200 [facility] Last Admin: 06/05/18 22:00 Dose: 1 patch Documented by: Loperamide HCl (Imodium) 2 mg PO PRN PRN PRN Reason: Diarrhea Last Admin: 06/03/18 17:29 Dose: 2 mg Documented by: Magnesium Oxide (Magnesium Oxide) 400 mg PO BID [facility] Last Admin: 06/05/18 19:42 Dose: 400 mg Documented by: Multivit/Ca Carb/B Cmplx/FA/Prenat (Diatx) 1 tab PO [facility] Last Admin: 06/05/18 19:42 Dose: 1 tab Documented by: Naloxone HCl (Narcan) 0.1 mg IV Q2MIN PRN PRN Reason: Opiate Reversal Nicotine (Nicoderm) 7 mg TOPICAL DAILY@1000 [facility] Last Admin: 06/05/18 09:41 Dose: 7 mg Documented by: Nortriptyline HCl (Pamelor) 30 mg PO [facility] Last Admin: 06/05/18 19:42 Dose: 30 mg Documented by: Ondansetron HCl (Zofran) 4 mg IV Q4HP PRN PRN Reason: Nausea And Vomiting Last Admin: 06/04/18 22:34 Dose: 4 mg Documented by: Simvastatin (Zocor) 10 mg PO [facility] Last Admin: 06/05/18 19:42 Dose: 10 mg Documented by: Sodium Bicarbonate (Sodium Bicarbonate) 1,300 mg PO TID [facility] Last Admin: 06/05/18 19:42 Dose: 1,300 mg Documented by: Sodium Chloride (Saline Flush) 10 ml IV Q8 [facility] Last Admin: 06/06/18 06:01 Dose: 10 ml Documented by: Thiamine HCl (Vitamin B1) 100 mg PO [facility] Last Admin: 06/05/18 23:00 Dose: 100 mg Documented by: Medical - PN: A/P - Time Spent With Patient Total time spent is greater than 50% in coordination of care (as documented) at patient's floor/unit and/or counseling patient: - Narrative A/P Narrative: A: *JEANETTE on CKD IV, oligoric, worsening: likely ATN -gradual worsening thus far *Cardiorenal syndrome: *Acute systolic CHF: -echo showing EF 20-25%, PAH, unable to assess LV diastolic fxn. Echo in 2016 showed normal EF. *Severe Hypomagnesemia, also Hyponatremia: REsolved -mg stable, due to poor oral intake and alcohol use, meds *Hypoxia: 2/2 above + suspect underlying COPD -now on room air while awake *Encephalopathy: multifactorial including age/illness/unfamiliar environment/infection/anemia/and JEANETTE concern for Uremia/??etoh *Etoh intake is 2 drinks/night *Orthostatic initially: due to dehydration, etoh, *UTI (Proteus): *Malnutrition/FTT: encourage oral intake *Anemia, acute on chronic, acute blood loss anemia: -s/p 2 PRBC -gastritis noted on endoscopy, stable *mild sinus tachycardia -V/Q scan low prob *Chr Diarrhea/ IBS: stable, prn loperamide *Hypertension: home meds norvasc/lasix/lisinopril *Hypothyroidism/Sick thyroid syndrome (lows tsh and t3, normal t4): decrease home levothyroxine *Tobacco abuse: pt counselled *Anxiety *Decub wounds: *Likely COPD given smoking history and CXR appearance: *Goals of care: tenuous state, currently full code Plan: -higher dose lasix given yesterday and dobutamine last night with some improvement in UOP -add BB as BP allows and restart home ACEI lower dose when appropriate, will also need diuretic therapy and f/u with plunket nurse -Nephrology following -Monitor electrolytes and replace as needed; monitor magnesium closely given supplement and ckd. ppi a culprit for low mag, switched to H2 inhibitor. -cont Rocephin -IS -wound care following, not infected it seems, Dr Hoover following. -Reimbursement Specialist -case discussed with Hematology, f/u outpt for high iron saturation -Smoking cessation counseling -pt/ot -ppx: scd (lovenox held for gastritis bleeding)/H2 Medical - PN: Qual - VTE Deep Vein Thrombosis/Pulmonary Embolism Present on Admission: No
--- NOTE | 2018-06-06 07:13 | Nephrology Progress Note ---
Subjective Patient information: Note initiated : 06/06/18 at 7:08 am Patient: Libby Candelaria 78 y/o F admitted on 05/31/18 for fall, hit chest and chin. Chief Complaint: Weakness Principal diagnosis: Acute kidney injury Pertinent ROS: Weakness No nausea Shortness of breath Edema No chest pain No abdominal pain Objective - Vital Signs Vital signs: Vital Signs Temp Pulse Pulse Resp BP BP Pulse Ox 06/06/18 06:00 103/58 06/06/18 05:00 101/60 06/06/18 04:15 91 06/06/18 04:02 98.2 F 20 104/85 06/06/18 04:00 98.2 F 20 104/85 99 06/06/18 03:04 110/65 06/06/18 03:00 110/65 06/06/18 02:02 111/96 06/06/18 02:00 111/96 06/06/18 01:02 111/75 06/06/18 01:00 111/75 06/06/18 00:02 122/86 06/06/18 00:00 98.3 F 20 122/86 95 06/05/18 23:02 115/69 06/05/18 23:00 115/69 06/05/18 22:07 104/61 06/05/18 22:00 104/61 06/05/18 19:18 22 115/76 92 06/05/18 19:10 108 H 92 06/05/18 17:02 38 L 116/77 06/05/18 16:30 97.8 F 115 H 16 116/77 92 06/05/18 12:24 113/74 06/05/18 12:00 98.1 F 14 116/68 96 06/05/18 10:16 105/68 06/05/18 10:01 114/63 06/05/18 09:58 105/61 06/05/18 09:57 89/67 06/05/18 07:56 97.6 F 111 H 12 116/69 96 06/05/18 07:49 45 L 116/69 Intake and Output 06/05/18 06/06/18 06/06/18 21:59 05:59 13:59 Intake Total 205 100 167 Output Total 185 141 8 Balance 20 -41 159 Intake: IV 5 167 Sodium Chloride 0.9% 250 ml @ 4 136 20 mls/hr IV .[id number] JANNA Rx#: [id number] Dobutrex 250 mg In Premix 1 Bag 1 31 @ 1 MCG/KG/MIN 3.69 mls/hr IV .Q24H JANNA Rx#:[id number] Oral 200 100 Output: Urine Catheter Amount 185 141 8 Other: Meal Dinner Percent of Meal Consumed 40% Feeding Ability Independent Urine Appearance Clear Clear Clear Sediment Uretheral (Bentley) Clear Urine Color Bright Yellow Pale Pale Uretheral (Bentley) Bright Yellow Urine Odor Normal Normal Uretheral (Bentley) Normal Weight 138 lb 8 oz Intake & Output: Intake & Output 06/05/18 06/06/18 06/06/18 21:59 05:59 13:59 Intake Total 205 100 167 Output Total 185 141 8 Balance 20 -41 159 Weight 138 lb 8 oz Intake: IV 5 167 Sodium Chloride 0.9% 250 ml @ 4 136 20 mls/hr IV .[id number] JANNA Rx#: [id number] Dobutrex 250 mg In Premix 1 Bag 1 31 @ 1 MCG/KG/MIN 3.69 mls/hr IV .Q24H JANNA Rx#:[id number] Oral 200 100 Output: Urine Catheter Amount 185 141 8 Other: Meal Dinner Percent of Meal Consumed 40% Feeding Ability Independent Urine Appearance Clear Clear Clear Sediment Uretheral (Bentley) Clear Urine Color Bright Yellow Pale Pale Uretheral (Bentley) Bright Yellow Urine Odor Normal Normal Uretheral (Bentley) Normal - General Appearance General appearance: appears started age, fatigue EENT: mucous membranes moist Neck: JVD Respiratory: course breath sounds Cardiology: edema Gastrointestinal: no tenderness Integumentary: warm and dry, ecchymotic Neurologic: no focal deficit Musculoskeletal: no deformities Psychiatric: mood/affect appropriate, cooperative - Lab 06/05/18 03:25 06/06/18 04:00 Most recent lab results Calcium 9.1 mg/dl (8.6-10.4) 06/06/18 04:00 Phosphorus 5.0 mg/dL (2.7-4.5) H 06/06/18 04:00 Magnesium 2.0 mg/dL (1.6-2.5) 06/06/18 04:00 Assessment and Plan (1) Acute on chronic renal failure Libby Candelaria is a 78-year-old female with hypertension, hyperlipidemia, hypothyroidism, chronic kidney disease stage 3, left renal artery stenosis s/p stent, chronic hyponatremia, admitted on 05/31/18 after a fall at home. She has been dizzy for several days. She has been on Sodium chloride 1 gram twice daily, Furosemide 20 mg daily and Lisinopril 40 mg daily and Amlodipine 10 mg daily at home. Acute kidney injury on chronic kidney disease stage 3 associated with acute Proteus cystitis, initial hyponatremia and hypomagnesemia, likely acute tubular necrosis associated with prolonged dehydration with diuretic and ACEI use, present on arrival. Work up: Urinalysis on 05/31/18: Yellow, Cloudy, pH 8.0, SG 1.011, protein 100, occult blood 0.03, leukocyte esterase 500. US Renal on 06/01/18: Multiple cysts in both kidneys which remain stable. M arkedly diminished urine output from both kidneys. This may be due to acute kidney injury. Trace amount of free fluid adjacent to the capsule in both kidneys which is nonspecific but might be related to the recent injury. Progress: Urine output: 449 ml reported in the past 24 hours. Creatinine increased from 3.0 to 3.1 in the past 24 hours. Metabolic acidosis, improved. She receives Sodium Bicarbonate 1300 mg PO TID. Fluid overload with 34 lbs weight gain and 15 kg + I/Os. IV fluids discon tinued. Her daughter informed at bedside on 05/26/18. Recommendations: No acute hemodialysis need. Avoid NSAIDs, nephrotoxic medications and IV contrast. Monitor BMP and urine output. Status: Acute Priority: High Qualifiers: Acute renal failure type: with acute tubular necrosis Chronic kidney d isease stage: stage 3 (moderate) Qualified Code(s): N17.0 - Acute kidney failure with tubular necrosis; N18.3 - Chronic kidney disease, stage 3 (moderate) (2) Metabolic acidosis Please see above Status: Acute Priority: Medium
[2018-06-06] MEDS ORDERED: METOPROLOL TARTRATE 25 MG TABLET PO ONE (08:43)
[2018-06-06] MEDS: SODIUM BICARBONATE 650 MG TABLET PO SCH ×3 (09:07→20:31)
[2018-06-06] MEDS: ASPIRIN 81 MG TAB.CHEW PO SCH (09:07)
[2018-06-06] MEDS: FOLIC ACID 1 MG TABLET PO SCH (09:07)
[2018-06-06] MEDS: MAGNESIUM OXIDE 400 MG TABLET PO SCH ×2 (09:08→20:30)
[2018-06-06] MEDS: CALCIUM W/VIT D3 500 MG TABLET PO SCH (09:28)
[2018-06-06] MEDS: 0.9 % SODIUM CHLORIDE 250 ML IV SCH ×2 (09:28→20:33)
[2018-06-06] MEDS: LEVOTHYROXINE 100 MCG TABLET PO SCH (09:39)
[2018-06-06] MEDS: LIDOCAINE PATCH TOPICAL SCH ×2 (12:32→21:08)
[2018-06-06] MEDS: NICOTINE 7 MG PATCH TOPICAL SCH (12:32)
[2018-06-06] MEDS ORDERED: FUROSEMIDE 100 MG/10 ML VIAL IV ONE (14:00)
[2018-06-06] MEDS ORDERED: ALBUMIN HUMAN 12.5 GM/50 ML BAG IV ONE (14:00)
[2018-06-06] MEDS: HYDROcodone/APAP 5/325MG TABLET PO PRN ×2 (14:10→18:52)
[2018-06-06] MEDS: LOPERAMIDE 2 MG CAPSULE PO PRN (17:49)
[2018-06-06] MEDS: FOLIC ACID/VITAMIN B COMP W-C 1 TAB TABLET PO SCH (20:28)
[2018-06-06] MEDS: METOPROLOL TARTRATE 25 MG TABLET PO SCH (20:29)
[2018-06-06] MEDS: NORTRIPTYLINE 10 MG CAPSULE PO SCH (20:30)
[2018-06-06] MEDS: SIMVASTATIN 10 MG TABLET PO SCH (20:31)
[2018-06-06] MEDS: THIAMINE 100 MG TABLET PO SCH (20:31)
[2018-06-06] MEDS: FAMOTIDINE 20 MG TABLET PO SCH (20:31)
[2018-06-06] MEDS: DOBUTamine 250 MG in PREMIX 1 BAG IV SCH (20:32)
[2018-06-07] MEDS: 0.9 % SODIUM CHLORIDE 10 ML SYRINGE IV SCH ×3 (05:59→20:58)
[2018-06-07 06:04] LABS: ALT/SGPT 22 U/l (0-40); Albumin 2.3 gm/dL (3.2-5.2); Albumin/Globulin Ratio 0.8 (1.0-2.3); Alkaline Phosphatase 140 U/L (39-117); Bilirubin,Direct < 0.2 mg/dL (0.0-0.3); Blood Urea Nitrogen 69 mg/dl (8-23); Gamma Glutamyl Transpeptidase 59 U/L (5-36); Uric Acid 6.6 mg/dL (2.5-8.0)
--- NOTE | 2018-06-07 07:00 | Internal Med Progress Note ---
Medical - PN: Subj Patient information: Note initiated : 06/07/18 at 6:57 am Service Date, if different from initiated Date: [] Patient: Libby Candelaria a 78 y/o F admitted on 05/31/18 for fall, hit chest and chin. Chief Complaint: [] Interval history: Ms. Candelaria is a 78 year old F who lives by herself, history of heavy alcohol use, smoker presents to the hospital for evaluation of fall. The patient notes that she has not been feeling well over the last 2 weeks, she has been getting dizzy whenever she stands up. She has seen a primary care provider for same who had cut back on her blood pressure medications. Today she stood up from sitting position and walked a few steps and then fell forward face down. She presented to the hospital for further evaluation because of this. She injured her lips and her dentures. The patient denies any headache loss of consciousness denies any palpitations chest pain shortness of breath nausea or belly pain vomiting or constipation. She admits to having chronic diarrhea for the last few years. The patient notes that she has not been eating and drinking well for the last few weeks notes that dizziness prevents her from doing much, she also lives by herself and does not feel like cooking for herself. The patient takes a magnesium supplement according to her. The patient has been admitted in the past with a diagnosis of hypophosphatemia hypokalemia and hypomagnesemia. On presentation to the emergency room patient was afebrile, tachycardic with heart rate 110-120, stable blood pressure maintaining oxygen saturation more than 90% on room air. Labs showed WBC count of 10.2 hemoglobin 8.6, MCV 96 platelets 217 sodium 128 potassium 4.6 bicarbonate 24 creatinine 2.4 glucose 139, calcium 7.2 albumin 3.0 magnesium 0.7. Reticulocyte count is 1.0, haptoglobin 123, iron 102, TIBC 122, ferritin 1091, iron saturation 83%, B12 level is 447, folic acid 5.3 Given patient has critically low magnesium, symptomatic orthostatic dizziness, fall, acute renal failure patient is being admitted to the hospital for further management 06/01 Patient seen and examined, no acute overnight events. Patient doing well, magnesium still low, continue oral and IV replacement. Patient has not had any bowel movements yet. Hemoglobin trending down as expected after IV fluids. I would expect the patient would likely need blood transfusion tomorrow. Workup for anemia is negative so far. Pt renal function did not improve significantly, bp on the lower end, and pt not making much urine, nephrology consulted. 06/02 Patient seen and examined, no acute overnight events. Patient's blood pressure has been a bit soft. Patient's hemoglobin this morning is 6.3, no evidence of melena or bright red blood stools reported however given acute drop we will transfuse 2 units. Work up so far negative gastroenterology has been consulted. CT chest abdomen and pelvis is negative for any intra-peritoneal bleed retroperitoneal bleed Nephrology following no indication for dialysis 06/03 Pt seen examined, no acute issues, remains tachcyardic, off oxygen EGD shows gastritis, likely source of dropped hb, no colonosocpy planned for now off hep given gi bleed? VQ scan today to r/o PE, Hb rise is appropriate after transfusion. pt wants to go home today, notes her son will take care of her, 06/04 Slept okay but did have interruptions. Otherwise no events overnight. Has a mild productive cough of yellow sputum, mild shortness of breath. She states she runs 90% on oxygen at home on room air. Is not on any inhalers at home. 06/05 Patient denies cough. Denies shortness of breath at rest currently. Has a mild cough white sputum. Increased oxygen need yesterday with chest x-ray showing pulmonary edema, significant fluid balance positive. Trial of 40 of IV Lasix without effect. IV's fluids stopped yesterday, oxygen able to be weaned down this morning back to 2 L. She was on room air temporarily but sats dropped. Called and discussed the patient with her daughter Brianna Tesfaye, power of mergers and acquisitions attorney POA. Given the recent finding is a poor cardiac status along with her poor response to treatment at this time felt it was important to discuss the patient's current circumstance. She is very tenuous given her severe multiorgan dysfunction including renal cardiac and pulmonary, along with her anemia and malnutrition. Per the daughter she started declining about a month ago and then about 2 weeks ago started rapidly declining. She was seen by her primary care provider and blood pressure medications were adjusted because she had lower blood pressures and some dizziness. She also had a decrease in her appetite and was not eating the food that her daughter had brought by. As well and having some falls. Regarding her alcohol intake, per her daughter she drinks 2 drinks of vodka each night, but not more. She is currently a full code but if things take a turn for the worse the daughter wants her to be home with family if it were to trend in that direction. Prognosis guarded at this point. 06/06 Believe she is at home in bed. Reported to nurse that she had a chance underskin last night. She slept well in the evening and then woke up at 10 PM and then was up for a while. She finally fell asleep again at 4 and woke it 830 this morning. She does admit to cough, productive. denies shortness of breath, is currently on room air. family discussion with daughter. pt is full code, but if declines family would like to focus on comfort care and bring home. 06/07 cough, states dyspnea last night. unable to cough up sputum per nurse. slept well last night. Daughter at bedside. Review of Systems: denies headache/fever/chills/nausea/vomiting/abdominal pain/diarrhea. Otherwise see above. - Constitutional Vitals: Vital Signs Temp Pulse Resp BP Pulse Ox 97.7 F 96 H 24 H 115/81 91 06/07/18 04:16 06/07/18 04:16 06/07/18 04:16 06/07/18 04:16 06/07/18 04:16 Period Temp Pulse Resp BP Sys/Marques Pulse Ox Last 24 Hr 97.3 F-99.0 F 91-105 14-24 91-125/50-81 88-96 Intake and Output 06/06/18 06/07/18 06/07/18 21:59 05:59 13:59 Intake Total 330 Output Total 78 105 Balance 252 -105 Weight 62.596 kg Intake & Output: Intake & Output 06/06/18 06/07/18 06/07/18 21:59 05:59 13:59 Intake Total 330 Output Total 78 105 Balance 252 -105 Weight 62.596 kg Intake: IV 70 Sodium Chloride 0.9% 250 ml @ 0 20 mls/hr IV .[id number] [facility] Rx#: [id number] Dobutrex 250 mg In Premix 1 Bag 20 @ 1 MCG/KG/MIN 3.69 mls/hr IV .Q24H [facility] Rx#:[id number] Oral 260 Output: Urine Catheter Amount 78 105 Other: Meal Dinner Percent of Meal Consumed 0% Feeding Ability Total Assistance Urine Appearance Clear Clear Uretheral (Bentley) Clear Urine Color Pale Pale Uretheral (Bentley) Pale Urine Odor Normal Stool Size Large Stool Color Brown Stool Consistency Loose # of times incontinent of 1 Bowels Exam: General: Alert, Awake, No acute Distress Eyes/N/T: EOMI, Head/Neck: neck supple, CV: mildly Tachycardia but improved, regular, No murmurs, Pulm: no wheezing today, mild b/l course Abd: soft, nontender, +BS x4 Ext: no clubbing/cyanosis, b/l LE edema Neuro: Alert, no focal deficits, moves all extremities, confusion Skin: warm/dry Medical - PN: Obj Da - Labs CBC & Chem 7: 06/05/18 03:25 06/07/18 04:00 Labs: Abnormal Lab Results 06/07/18 06/06/18 06/05/18 04:00 04:00 03:25 RBC Hgb Hct RDW Gran % Lymph % (Auto) Lymph # (Auto) Carbon Dioxide 20 L 19 L 17 L BUN 69 H 60 H 54 H Creatinine 3.3 H 3.1 H 3.0 H Phosphorus 5.3 H 5.0 H 5.1 H GGT 59 H 63 H 64 H AST 39 H 46 H Alkaline Phosphatase 140 H 142 H 138 H Lactate Dehydrogenase 266 H NT-Pro-B Natriuret Pep Total Protein 5.1 L 5.5 L 5.5 L Albumin 2.3 L 2.4 L 2.3 L Albumin/Globulin Ratio 0.8 L 0.8 L 0.7 L 06/05/18 06/04/18 06/04/18 03:25 17:03 03:35 RBC 3.18 L Hgb 9.9 L Hct 30.4 L RDW 15.7 H Gran % 80.4 H Lymph % (Auto) 8.7 L Lymph # (Auto) 0.8 L Carbon Dioxide 19 L BUN 53 H Creatinine 2.9 H Phosphorus 5.4 H GGT 69 H AST 61 H Alkaline Phosphatase 140 H Lactate Dehydrogenase 257 H NT-Pro-B Natriuret Pep > 21747.0 H Total Protein 5.3 L Albumin 2.2 L Albumin/Globulin Ratio 0.7 L Meds: Medications Acetaminophen (Tylenol) 650 mg PO Q6HP PRN PRN Reason: PAIN/FEVER > 101 Last Admin: 06/01/18 07:50 Dose: 650 mg Documented by: Hydrocodone Bitart/Acetaminophen (Canaan 5/325mg) 1 - 2 tab PO Q4HP PRN PRN Reason: Pain Last Admin: 06/06/18 18:52 Dose: 1 tab Documented by: Aspirin (Aspirin) 81 mg PO DAILY [facility] Last Admin: 06/06/18 09:07 Dose: 81 mg Documented by: Calcium/Vitamin D (Calcium W/Vit D3) 500 mg PO DAILY [facility] Last Admin: 06/06/18 09:28 Dose: 500 mg Documented by: Diphenhydramine HCl (Benadryl) 25 mg PO HSP PRN PRN Reason: Insomnia Last Admin: 06/06/18 20:31 Dose: 25 mg Documented by: Famotidine (Pepcid) 20 mg PO HS [facility] Last Admin: 06/06/18 20:31 Dose: 20 mg Documented by: Folic Acid (Folic Acid) 1 mg PO DAILY [facility] Last Admin: 06/06/18 09:07 Dose: 1 mg Documented by: Hydroxyzine HCl (Atarax) 50 mg PO BIDP PRN PRN Reason: Anxiety Dobutamine HCl/Dextrose 250 mg (/ Premix) 250 mls @ 3.69 mls/hr IV .Q24H [facility]; Protocol Last Admin: 06/06/18 20:32 Dose: Not Given Documented by: Sodium Chloride (Sodium Chloride 0.9%) 250 mls @ 20 mls/hr IV .[id number] [facility] Last Admin: 06/06/18 20:33 Dose: Not Given Documented by: Levothyroxine Sodium (Synthroid) 88 mcg PO QAMAC [facility] Lidocaine (Lidoderm) 1 patch TOPICAL DAILY@1000 [facility] Last Admin: 06/06/18 12:32 Dose: 1 patch Documented by: Lidocaine (Lidoderm) 0 patch TOPICAL DAILY@2200 [facility] Last Admin: 06/06/18 21:08 Dose: 1 patch Documented by: Loperamide HCl (Imodium) 2 mg PO PRN PRN PRN Reason: Diarrhea Last Admin: 06/06/18 17:49 Dose: 2 mg Documented by: Magnesium Oxide (Magnesium Oxide) 400 mg PO BID [facility] Last Admin: 06/06/18 20:30 Dose: 400 mg Documented by: Metoprolol Tartrate (Lopressor) 12.5 mg PO BID [facility] Last Admin: 06/06/18 20:29 Dose: 12.5 mg Documented by: Multivit/Ca Carb/B Cmplx/FA/Prenat (Diatx) 1 tab PO [facility] Last Admin: 06/06/18 20:28 Dose: 1 tab Documented by: Naloxone HCl (Narcan) 0.1 mg IV Q2MIN PRN PRN Reason: Opiate Reversal Nicotine (Nicoderm) 7 mg TOPICAL DAILY@1000 [facility] Last Admin: 06/06/18 12:32 Dose: 7 mg Documented by: Nortriptyline HCl (Pamelor) 30 mg PO [facility] Last Admin: 06/06/18 20:30 Dose: 30 mg Documented by: Ondansetron HCl (Zofran) 4 mg IV Q4HP PRN PRN Reason: Nausea And Vomiting Last Admin: 06/04/18 22:34 Dose: 4 mg Documented by: Simvastatin (Zocor) 10 mg PO [facility] Last Admin: 06/06/18 20:31 Dose: 10 mg Documented by: Sodium Bicarbonate (Sodium Bicarbonate) 1,300 mg PO TID [facility] Last Admin: 06/06/18 20:31 Dose: 1,300 mg Documented by: Sodium Chloride (Saline Flush) 10 ml IV Q8 [facility] Last Admin: 06/07/18 05:59 Dose: 10 ml Documented by: Thiamine HCl (Vitamin B1) 100 mg PO [facility] Last Admin: 06/06/18 20:31 Dose: 100 mg Documented by: Medical - PN: A/P - Time Spent With Patient Total time spent is greater than 50% in coordination of care (as documented) at patient's floor/unit and/or counseling patient: - Narrative A/P Narrative: A: *JEANETTE on CKD IV, oligoric, worsening: likely ATN -gradual worsening thus far *Cardiorenal syndrome: *Acute systolic CHF: -echo showing EF 20-25%, PAH, unable to assess LV diastolic fxn. Echo in 2016 showed normal EF. *Severe Hypomagnesemia, also Hyponatremia: REsolved -mg stable, due to poor oral intake and alcohol use, meds *Hypoxia: 2/2 above + suspect underlying COPD -now on room air while awake *Encephalopathy: multifactorial including age/illness/unfamiliar envi ronment/infection/anemia/and JEANETTE concern for Uremia/ *Etoh intake is 2 drinks/night *Orthostatic initially: due to dehydration, etoh, *UTI (Proteus): *Malnutrition/FTT: encourage oral intake *Anemia, acute on chronic, acute blood loss anemia: -s/p 2 PRBC -gastritis noted on endoscopy, stable *mild sinus tachycardia -V/Q scan low prob *Chr Diarrhea/ IBS: stable, prn loperamide *Hypertension: home meds norvasc/lasix/lisinopril *Hypothyroidism/Sick thyroid syndrome (lows tsh and t3, normal t4): decrease home levothyroxine *Tobacco abuse: pt counselled *Anxiety *Decub wounds: *Likely COPD given smoking history and CXR appearance: *Goals of care: tenuous state, currently full code but if pt declines family would like to focus on comfort and bring home Plan: -Nephrology following, no HD -cont BB, restart home ACEI lower dose when appropriate, will also need diuretic therapy and f/u with quality assurance director -Monitor electrolytes and replace as needed; monitor magnesium closely given supplement and ckd. ppi a culprit for low mag, switched to H2 inhibitor. -cont Rocephin -IS -wound care following, not infected it seems, Dr Hoover following. -Latex Foam Worker -case discussed with Hematology, f/u outpt for high iron saturation -Smoking cessation counseling -pt/ot -ppx: scd (lovenox held for gastritis bleeding)/H2 Full code, Medical - PN: Qual - VTE Deep Vein Thrombosis/Pulmonary Embolism Present on Admission: No
[2018-06-07] MEDS: LEVOTHYROXINE 88 MCG TABLET PO SCH (08:48)
--- NOTE | 2018-06-07 09:58 | Nephrology Progress Note ---
Subjective Patient information: Note initiated : 06/07/18 at 9:54 am Patient: Libby Candelaria 78 y/o F admitted on 05/31/18 for fall, hit chest and chin. Chief Complaint: Weakness Principal diagnosis: Acute kidney injury Pertinent ROS: Weakness No nausea Shortness of breath Edema No chest pain No abdominal pain Bentley catheter Objective - Vital Signs Vital signs: Vital Signs Temp Pulse Pulse Resp BP BP BP 06/07/18 08:00 97.5 F 103 H 18 111/66 06/07/18 04:16 97.7 F 96 H 24 H 115/81 06/07/18 00:02 99.0 F 20 100/54 06/07/18 00:00 99.0 F 20 100/54 06/06/18 20:02 102/63 06/06/18 20:00 102/63 06/06/18 19:20 120/66 06/06/18 19:00 98.9 F 20 120/66 06/06/18 18:39 95 H 06/06/18 18:00 123/76 06/06/18 17:57 125/76 06/06/18 17:43 91 H 06/06/18 17:17 104/57 06/06/18 17:02 102/61 06/06/18 16:02 98.3 F 14 95/50 06/06/18 15:02 91/53 06/06/18 13:35 108/65 06/06/18 13:02 113/65 06/06/18 12:30 98.0 F 100 H 18 117/59 Pulse Ox 06/07/18 08:00 92 06/07/18 04:16 91 06/07/18 00:02 88 L 06/07/18 00:00 88 L 06/06/18 20:02 06/06/18 20:00 06/06/18 19:20 06/06/18 19:00 96 06/06/18 18:39 96 06/06/18 18:00 06/06/18 17:57 06/06/18 17:43 06/06/18 17:17 06/06/18 17:02 06/06/18 16:02 90 06/06/18 15:02 06/06/18 13:35 06/06/18 13:02 01/27/19 12:30 91 Intake and Output 06/06/18 06/07/18 06/07/18 21:59 05:59 13:59 Intake Total 330 Output Total 78 105 Balance 252 -105 Intake: IV 70 Sodium Chloride 0.9% 250 ml @ 0 20 mls/hr IV .[id number] [facility] Rx#: [id number] Dobutrex 250 mg In Premix 1 Bag 20 @ 1 MCG/KG/MIN 3.69 mls/hr IV .Q24H [facility] Rx#:[id number] Oral 260 Output: Urine Catheter Amount 78 105 Other: Meal Dinner Percent of Meal Consumed 0% Feeding Ability Total Assistance Urine Appearance Clear Clear Uretheral (Bentley) Clear Urine Color Pale Pale Uretheral (Bentley) Pale Urine Odor Normal Stool Size Large Stool Color Brown Stool Consistency Loose # of times incontinent of 1 Bowels Weight 138 lb Intake & Output: Intake & Output 06/06/18 06/07/18 06/07/18 21:59 05:59 13:59 Intake Total 330 Output Total 78 105 Balance 252 -105 Weight 138 lb Intake: IV 70 Sodium Chloride 0.9% 250 ml @ 0 20 mls/hr IV .[id number] [facility] Rx#: [id number] Dobutrex 250 mg In Premix 1 Bag 20 @ 1 MCG/KG/MIN 3.69 mls/hr IV .Q24H [facility] Rx#:[id number] Oral 260 Output: Urine Catheter Amount 78 105 Other: Meal Dinner Percent of Meal Consumed 0% Feeding Ability Total Assistance Urine Appearance Clear Clear Uretheral (Bentley) Clear Urine Color Pale Pale Uretheral (Bentley) Pale Urine Odor Normal Stool Size Large Stool Color Brown Stool Consistency Loose # of times incontinent of 1 Bowels - General Appearance General appearance: appears started age, fatigue EENT: mucous membranes moist Neck: supple Respiratory: course breath sounds Cardiology: edema Gastrointestinal: no tenderness Integumentary: warm and dry, ecchymotic Neurologic: no focal deficit, confused Musculoskeletal: no deformities Psychiatric: mood/affect appropriate, cooperative - Lab 06/05/18 03:25 06/07/18 04:00 Most recent lab results Calcium 9.0 mg/dl (8.6-10.4) 06/07/18 04:00 Phosphorus 5.3 mg/dL (2.7-4.5) H 06/07/18 04:00 Magnesium 2.2 mg/dL (1.6-2.5) 06/07/18 04:00 Assessment and Plan (1) Acute on chronic renal failure Libby Candelaria is a 78-year-old female with hypertension, hyperlipidemia, hypothyroidism, chronic kidney disease stage 3, left renal artery stenosis s/p stent, chronic hyponatremia, admitted on 05/31/18 after a fall at home. She has been dizzy for several days. She has been on Sodium chloride 1 gram twice daily, Furosemide 20 mg daily and Lisinopril 40 mg daily and Amlodipine 10 mg daily at home. Acute kidney injury on chronic kidney disease stage 3 associated with acute Proteus cystitis, initial hyponatremia and hypomagnesemia, likely acute tubular necrosis associated with prolonged dehydration with diuretic and ACEI use, present on arrival. Work up: Urinalysis on 05/31/18: Yellow, Cloudy, pH 8.0, SG 1.011, protein 100, occult blood 0.03, leukocyte esterase 500. US Renal on 06/01/18: Multiple cysts in both kidneys which remain stable. Markedly diminished urine output from both kidneys. This may be due to acute kidney injury. Trace amount of free fluid adjacent to the capsule in both kidneys which is nonspecific but might be related to the recent injury. Progress: Urine output: 449 ml reported in the past 24 hours. Creatinine increased from 3.1 to 3.3 in the past 24 hours. Metabolic acidosis, improved. She receives Sodium Bicarbonate 1300 mg PO TID. Fluid overload with 34 lbs weight gain and 15 kg + I/Os. IV fluids discontinued. Acute encephalopathy, likely delirium, possible contribution from uremia. Her daughter informed at bedside today. Discussion: The patient has multiple comorbidities with poor prognosis. Her family is considering hospice. She would be a poor candidate for acute or chronic hemodialysis. Recommendations: No urgent acute hemodialysis need. Avoid NSAIDs, nephrotoxic medications and IV contrast. Monitor BMP and urine output. Status: Acute Priority: High Qualifiers: Acute renal failure type: with acute tubular necrosis Chronic kidney disease stage: stage 3 (moderate) Qualified Code(s): N17.0 - Acute kidney failure with tubular necrosis; N18.3 - Chronic kidney disease, stage 3 (moderate) (2) Metabolic acidosis Please see above Status: Acute Priority: Medium
--- NOTE | 2018-06-07 10:12 | Cat Scan Report ---
CLINICAL INFORMATION: Decreased mental status COMPARISON: 05/31/2018. TECHNIQUE: 2.5 mm helical slices were obtained in the skull base to vertex. Following reconstruction, axial reformatted images were reviewed at bone and parenchymal windows. The exam was performed using radiation dose optimization techniques including, but not limited to, automated exposure control, adjustment of the mA and/or kV according to patient size and use of iterative reconstruction technique. FINDINGS: The ventricles, sulci, fissures, and cisterns are symmetrically enlarged compatible with mild atrophy - stable. There is no subdural hemorrhage or extra-axial fluid collection appreciated. Patchy chronic ischemic changes in the deep cerebral white matter are stable. There is no intracerebral hemorrhage, mass effect, edema or other acute finding. Bone windows show no osseous abnormality. Heavy calcific atherosclerotic plaque in the intracranial vertebral and cavernous carotid arteries seen - as before. IMPRESSION: Mild atrophy and chronic ischemic changes throughout the cerebral white matter - expected for age and stable. No acute findings. Interpreted and Authenticated by: Benigno Ogden 06/07/18
[2018-06-07] MEDS: LIDOCAINE PATCH TOPICAL SCH ×2 (11:13→20:58)
[2018-06-07] MEDS: NICOTINE 7 MG PATCH TOPICAL SCH (11:13)
[2018-06-07] MEDS: SODIUM BICARBONATE 650 MG TABLET PO SCH ×3 (11:14→20:57)
[2018-06-07] MEDS: ASPIRIN 81 MG TAB.CHEW PO SCH (11:14)
[2018-06-07] MEDS: MAGNESIUM OXIDE 400 MG TABLET PO SCH ×2 (11:14→20:57)
[2018-06-07] MEDS: METOPROLOL TARTRATE 25 MG TABLET PO SCH ×2 (11:14→20:57)
[2018-06-07] MEDS: CALCIUM W/VIT D3 500 MG TABLET PO SCH (11:14)
[2018-06-07] MEDS: FOLIC ACID 1 MG TABLET PO SCH (11:14)
[2018-06-07] MEDS: cefTRIAXone 1 GM VIAL IV SCH (11:16)
[2018-06-07] MEDS: 0.9 % SODIUM CHLORIDE 250 ML IV SCH ×2 (11:16→21:50)
--- NOTE | 2018-06-07 18:43 | General Surgery Progress Note ---
Subjective Patient reports: other (Wound Care ) Narrative: Note initiated : 06/07/18 at 6:39 pm Service Date, if different from initiated Date: [] Patient: Libby Candelaria 78 y/o F admitted on 05/31/18 for fall, hit chest and chin. Chief Complaint: [] Objective Temp Pulse Resp BP Pulse Ox 97.5 F 103 H 16 138/68 94 06/07/18 15:38 06/07/18 08:00 06/07/18 15:38 06/07/18 15:38 06/07/18 15:38 AVSS. Progress reviewed and discussed with Kathya GOLDEN [facility]. No changes in sacral pressure ulcer . - Additional Data Intake & Output - Last 24 hours: Intake & Output 06/05/18 06/06/18 06/07/18 06/08/18 05:59 05:59 05:59 05:59 Intake Total 2216 505 502 300 Output Total 220 449 301 125 Balance 1995 56 201 175 Weight 135 lb 8 oz 138 lb 8 oz 138 lb 138 lb - Labs 06/05/18 03:25 06/07/18 04:00 Diabetes panel 06/07/18 Range/Units 04:00 Sodium 137 (133-145) mmol/L Potassium 4.3 (3.3-5.1) mmol/L Chloride 103 (96-108) mmol/L Carbon Dioxide 20 L (22-30) mmol/L BUN 69 H (8-23) mg/dl Creatinine 3.3 H (0.6-1.1) mg/dl Glucose 83 (70-105) mg/dL Calcium 9.0 (8.6-10.4) mg/dl AST 32 (0-37) U/l ALT 22 (0-40) U/l Alkaline Phosphatase 140 H (39-117) U/L Total Protein 5.1 L (5.9-8.4) gm/dL Albumin 2.3 L (3.2-5.2) gm/dL Triglycerides 70 (<150) mg/dl Calcium panel 06/07/18 Range/Units 04:00 Calcium 9.0 (8.6-10.4) mg/dl Phosphorus 5.3 H (2.7-4.5) mg/dL Albumin 2.3 L (3.2-5.2) gm/dL Pituitary panel 06/07/18 Range/Units 04:00 Sodium 137 (133-145) mmol/L Potassium 4.3 (3.3-5.1) mmol/L Chloride 103 (96-108) mmol/L Carbon Dioxide 20 L (22-30) mmol/L BUN 69 H (8-23) mg/dl Creatinine 3.3 H (0.6-1.1) mg/dl Glucose 83 (70-105) mg/dL Calcium 9.0 (8.6-10.4) mg/dl Adrenal panel 06/07/18 Range/Units 04:00 Sodium 137 (133-145) mmol/L Potassium 4.3 (3.3-5.1) mmol/L Chloride 103 (96-108) mmol/L Carbon Dioxide 20 L (22-30) mmol/L BUN 69 H (8-23) mg/dl Creatinine 3.3 H (0.6-1.1) mg/dl Glucose 83 (70-105) mg/dL Calcium 9.0 (8.6-10.4) mg/dl Total Bilirubin 0.3 (0.0-1.0) mg/dL AST 32 (0-37) U/l ALT 22 (0-40) U/l Alkaline Phosphatase 140 H (39-117) U/L Total Protein 5.1 L (5.9-8.4) gm/dL Albumin 2.3 L (3.2-5.2) gm/dL Assessment and Plan (1) Sacral decubitus ulcer Status: Chronic Current Visit: Yes (2) Contusion of face Status: Acute Current Visit: Yes (3) Contusion, chest wall Status: Acute Current Visit: Yes - Narrative A/P Narrative: Assessment: No interval changes in sacral pressure ulcer. Plan: Continue off loading and TAPS along with protective foam dressings. Discharge plans noted. Nothing more to add. Will sign off . - Time Spent With Patient Total time spent is greater than 50% in coordination of care (as documented) at patient's floor/unit and/or counseling patient:
[2018-06-07] MEDS: NORTRIPTYLINE 10 MG CAPSULE PO SCH (20:56)
[2018-06-07] MEDS: FAMOTIDINE 20 MG TABLET PO SCH (20:56)
[2018-06-07] MEDS: SIMVASTATIN 10 MG TABLET PO SCH (20:56)
[2018-06-07] MEDS: FOLIC ACID/VITAMIN B COMP W-C 1 TAB TABLET PO SCH (20:56)
[2018-06-07] MEDS: THIAMINE 100 MG TABLET PO SCH (20:57)
[2018-06-07] MEDS: DOBUTamine 250 MG in PREMIX 1 BAG IV SCH (21:50)
[2018-06-08 05:13] LABS: Basophils # (Auto) 0 K/mcL (0.0-0.3); Basophils % (Auto) 0 % (0.0-2.0); Eosinophils # (Auto) 0 K/mcL (0.0-0.7); Eosinophils % (Auto) 0.2 % (0.0-7.0); Granulocytes % (Auto) 84.7 % (38.0-78.0); Lymphocytes # (Auto) 0.6 K/mcL (1.5-4.8); Lymphocytes % (Auto) 6.1 % (15.5-49.0); Mean Cell Volume 96.8 fL (80.0-100.0); Mean Corpuscular HGB Conc 32.8 g/dL (31.0-36.0); Platelet Count 249 K/mcL (140-440); RBC 3.42 M/mcL (4.00-5.20); Red Cell Distribution Width 15.5 % (11.5-14.5)
[2018-06-08 05:19] LABS: Blood Urea Nitrogen 70 mg/dl (8-23)
--- NOTE | 2018-06-08 07:16 | Nephrology Progress Note ---
Subjective Patient information: Note initiated : 06/08/18 at 7:13 am Patient: Libby Candelaria 78 y/o F admitted on 05/31/18 for fall, hit chest and chin. Chief Complaint: Weakness Principal diagnosis: Acute kidney injury Pertinent ROS: Weakness Confusion Edema Bentley catheter Shortness of breath No nausea No chest pain No abdominal pain Objective - Vital Signs Vital signs: Vital Signs Temp Pulse Resp BP BP BP Pulse Ox 06/08/18 04:00 99.3 F H 105 H 22 132/78 95 06/08/18 00:00 99.2 F H 100 H 22 124/79 96 06/07/18 20:00 99 F 20 128/74 90 06/07/18 19:50 99 F 20 128/74 96 06/07/18 15:38 97.5 F 16 138/68 94 06/07/18 12:00 97.8 F 22 134/78 91 06/07/18 08:00 97.5 F 103 H 18 111/66 92 Intake and Output 06/07/18 06/08/18 06/08/18 21:59 05:59 13:59 Intake Total 460 Output Total 125 100 Balance -125 360 Intake: Oral 460 Output: Urine Catheter Amount 125 100 Other: Meal Dinner applesauce w/meds Percent of Meal Consumed Refused 25% Feeding Ability Total Assistance Total Assistance Urine Appearance Sediment Urine Color Dark Yellow Dark Trisha Uretheral (Bentley) Dark Yellow Urine Odor Normal Strong Weight 141 lb Intake & Output: Intake & Output 06/07/18 06/08/18 06/08/18 21:59 05:59 13:59 Intake Total 460 Output Total 125 100 Balance -125 360 Weight 141 lb Intake: Oral 460 Output: Urine Catheter Amount 125 100 Other: Meal Dinner applesauce w/meds Percent of Meal Consumed Refused 25% Feeding Ability Total Assistance Total Assistance Urine Appearance Sediment Urine Color Dark Yellow Dark Trisha Uretheral (Bentley) Dark Yellow Urine Odor Normal Strong - General Appearance General appearance: appears started age, fatigue EENT: mucous membranes moist Neck: supple Respiratory: course breath sounds Cardiology: edema Gastrointestinal: no tenderness Integumentary: warm and dry, ecchymotic Neurologic: confused Musculoskeletal: no deformities Psychiatric: mood/affect appropriate, cooperative - Lab 06/08/18 03:50 06/08/18 03:50 Most recent lab results Calcium 9.4 mg/dl (8.6-10.4) 06/08/18 03:50 Phosphorus 5.3 mg/dL (2.7-4.5) H 06/07/18 04:00 Magnesium 2.2 mg/dL (1.6-2.5) 06/07/18 04:00 Assessment and Plan (1) Acute on chronic renal failure Libby Candelaria is a 78-year-old female with hypertension, hyperlipidemia, hypothyroidism, chronic kidney disease stage 3, left renal artery stenosis s/p stent, chronic hyponatremia, admitted on 05/31/18 after a fall at home. She has been dizzy for several days. She has been on Sodium chloride 1 gram twice daily, Furosemide 20 mg daily and Lisinopril 40 mg daily and Amlodipine 10 mg daily at home. Acute kidney injury on chronic kidney disease stage 3 associated with acute Proteus cystitis, initial hyponatremia and hypomagnesemia, likely acute tubular necrosis associated with prolonged dehydration with diuretic and ACEI use, present on arrival. Work up: Urinalysis on 05/31/18: Yellow, Cloudy, pH 8.0, SG 1.011, protein 100, occult blood 0.03, leukocyte esterase 500. US Renal on 06/01/18: Multiple cysts in both kidneys which remain stable. Markedly diminished urine output from both kidneys. This may be due to acute kidney injury. Trace amount of free fluid adjacent to the capsule in both k idneys which is nonspecific but might be related to the recent injury. Echo on 06/04/18: LVEF 20-25% with wall motion abnormalities. EGD on 06/02/18: Hemorrhagic gastritis. Progress: Urine output: 301 ml reported in the past 24 hours. Creatinine increased from 3.3 to 3.4 in the past 24 hours. Metabolic acidosis, receiving Sodium Bicarbonate 1300 mg PO TID. Fluid overload with 37 lbs weight gain and I/Os+ 15,435 ml. Acute encephalopathy, likely delirium, possible contribution from uremia. Her daughter informed at bedside on 06/07/18. Discussion: Acute kidney injury, suspected acute tubular necrosis with persistent oliguria. Yhe patient remains oliguric with serum creatinine trend up, fluid overload and worsening mental status, possible contribution from uremia. Acute hemodialysis indicated. The patient has multiple comorbidities with poor prognosis. Her family is considering hospice. She would be a poor candidate for acute or chronic hemodialysis. Status: Acute Priority: High Qualifiers: Acute renal failure type: with acute tubular necrosis Chronic kidney disease stage: stage 3 (moderate) Qualified Code(s): N17.0 - Acute kidney failure with tubular necrosis; N18.3 - Chronic kidney disease, stage 3 (moderate) (2) Metabolic acidosis Please see above Status: Acute Priority: Medium
[2018-06-08] MEDS: LEVOTHYROXINE 88 MCG TABLET PO SCH (07:22)
--- NOTE | 2018-06-08 09:01 | Discharge Summary ---
Medical - DS: Prov Patient information: Note initiated : 06/08/18 at 8:58 am Service Date, if different from initiated Date: [] Patient: Libby Candelaria 78 y/o F admitted on 05/31/18 for fall, hit chest and chin. Chief Complaint: [] Date of admission: 05/31/18 19:43 Discharge date: 06/08/18 Primary care physician: Ricky Trevino Consults: 05/31/18 Consult to Physician [CONS] Stat Comment: Consulting Provider: Pricila Butler Reason For Exam: Physician to Consult 06/01/18 07:53 Consult to Physician [CONS] Routine Comment: decub ulcer Consulting Provider: Brian Hoover Reason For Exam: Physician to Consult 06/01/18 09:28 Consult to Physician [CONS] Routine Comment: Consulting Provider: Ortega Buchanan Reason For Exam: Physician to Consult 06/02/18 09:08 Consult to Physician [CONS] Routine Comment: Consulting Provider: Georgi Koroma Reason For Exam: Physician to Consult Medical - DS: Meds - Discharge Medications Prescriptions: Lidocaine [Lidoderm] 0 patch TOPICAL DAILY@0 #15 patch LORazepam [Lorazepam Intensol] 2 mg PO Q4H PRN #10 ml PRN Reason: Anxiety morphine 10 mg PO Q2HP PRN #10 oral.conc PRN Reason: Anxiety Active and Home Medications: Home Medications Furosemide [Lasix] 20 mg PO DAILY 03/19/16 [History Confirmed 05/31/18 Last Taken 12/16/16] Levothyroxine [Synthroid] 100 mcg PO DAILY 03/19/16 [History Confirmed 05/31/18 Last Taken 12/16/16] Lisinopril [Zestril] 40 mg PO DAILY 03/19/16 [History Confirmed 05/31/18 Last Taken 12/17/16 05:00] Nortriptyline [Pamelor] 30 mg PO HS 03/19/16 [History Confirmed 05/31/18 Last Taken 12/16/16] Omeprazole 20 mg PO DAILY 03/19/16 [History Confirmed 05/31/18 Last Taken 12/16/16] Pravastatin [Pravachol] 20 mg PO HS 03/19/16 [History Confirmed 05/31/18 Last Taken 12/16/16] amLODIPine [Norvasc] 10 mg PO HS 03/19/16 [History Confirmed 05/31/18 Last Taken 12/16/16] Aspirin [Ecotrin] 81 mg PO QDAY 09/13/16 [History Confirmed 05/31/18 Last Taken 12/16/16] Magnesium Oxide [Magnesium] 400 mg PO QDAY 09/13/16 [History Confirmed 05/31/18 Last Taken 12/16/16] Calcium Carbonate/Vitamin D3 [Calcium 600 + Vit D Tablet] 1 tab PO DAILY 10/07/16 [History Confirmed 05/31/18 Last Taken 12/16/16] Cholecalciferol (Vitamin D3) [Vitamin D3] 1,000 unit PO DAILY 10/07/16 [History Confirmed 05/31/18 Last Taken 12/16/16] Hyoscyamine Sulfate [Levsin] 0.125 mg SL Q4HP PRN 10/07/16 [History Confirmed 05/31/18 Last Taken 12/16/16] LORazepam [Ativan] 0.5 mg PO PRN PRN 10/07/16 [History Confirmed 05/31/18 Last Taken 12/16/16] [place]-3S/Dha/Epa/Fish Oil [Fish Oil [place]-3 Softgel] 1 each PO DAILY 10/07/16 [History Confirmed 05/31/18 Last Taken 12/16/16] Sodium Chloride 1 gm PO BID 12/17/16 [History Confirmed 05/31/18 Last Taken 12/16/16] HYDROcodone/APAP 5/325MG [[place] 5-325Mg] 1 tab PO Q4HP PRN #30 tab 12/18/16 [Rx Confirmed 05/31/18 Last Taken Unknown] LORazepam [Lorazepam Intensol] 2 mg PO Q4H PRN #10 ml 06/08/18 [Rx Last Taken Unknown] Lidocaine [Lidoderm] 0 patch TOPICAL DAILY@2200 #15 patch 06/08/18 [Rx Last Taken Unknown] morphine 10 mg PO Q2HP PRN #10 oral.conc 06/08/18 [Rx Last Taken Unknown] Medical - DS: Hosp Hospital course: DISCHARGE DIAGNOSIS *JEANETTE on CKD IV, oligoric, worsening: likely ATN -gradual worsening thus far. GFR 12, *Cardiorenal syndrome: *Acute systolic CHF: NYHA CLASS IV -echo showing EF 20-25%, PAH, unable to assess LV diastolic fxn. Echo in 2016 showed normal EF. *Decub wounds:Managed as per oncology rep specialist *Severe Hypomagnesemia, also Hyponatremia: REsolved -mg stable, due to poor oral intake and alcohol use, meds *Hypoxia: 2/2 above + suspect underlying COPD -now on room air while awake *Encephalopathy: multifactorial including age/illness/unfamiliar envi ronment/infection/anemia/and JEANETTE concern for Uremia/ *Etoh intake is 2 drinks/night *Orthostatic initially: due to dehydration, etoh, *UTI (Proteus): *Malnutrition/FTT: encourage oral intake *Anemia, acute on chronic, acute blood loss anemia: -s/p 2 PRBC -gastritis noted on endoscopy, stable *mild sinus tachycardia -V/Q scan low prob *Chr Diarrhea/ IBS: stable, prn loperamide *Hypertension: home meds norvasc/lasix/lisinopril *Hypothyroidism/Sick thyroid syndrome (lows tsh and t3, normal t4): decrease home levothyroxine *Tobacco abuse: pt counselled *Anxiety *Likely COPD given smoking history and CXR appearance: *Goals of care: tenuous state, currently full code but if pt declines family would like to focus on comfort and bring home [facility] Ms. Candelaria is a 78 year old F who lives by herself, history of heavy alcohol use, smoker presents to the hospital for evaluation of fall. The patient notes that she has not been feeling well over the last 2 weeks, she has been getting dizzy whenever she stands up. She has seen a primary care provider for same who had cut back on her blood pressure medications. Today she stood up from sitting position and walked a few steps and then fell forward face down. She presented to the hospital for further evaluation because of this. She injured her lips and her dentures. The patient denies any headache loss of consciousness denies any palpitations chest pain shortness of breath nausea or belly pain vomiting or constipation. She admits to having chronic diarrhea for the last few years. The patient notes that she has not been eating and drinking well for the last few weeks notes that dizziness prevents her from doing much, she also lives by herself and does not feel like cooking for herself. The patient takes a magnesium supplement according to her. The patient has been admitted in the past with a diagnosis of hypophosphatemia hypokalemia and hypomagnesemia. On presentation to the emergency room patient was afebrile, tachycardic with heart rate 110-120, stable blood pressure maintaining oxygen saturation more than 90% on room air. Labs showed WBC count of 10.2 hemoglobin 8.6, MCV 96 platelets 217 sodium 128 potassium 4.6 bicarbonate 24 creatinine 2.4 glucose 139, calcium 7.2 albumin 3.0 magnesium 0.7. Reticulocyte count is 1.0, haptoglobin 123, iron 102, TIBC 122, ferritin 1091, iron saturation 83%, B12 level is 447, folic acid 5.3 Given patient has critically low magnesium, symptomatic orthostatic dizziness, fall, acute renal failure patient is being admitted to the hospital for further management 06/01 Patient seen and examined, no acute overnight events. Patient doing well, magnesium still low, continue oral and IV replacement. Patient has not had any bowel movements yet. Hemoglobin trending down as expected after IV fluids. I would expect the patient would likely need blood transfusion tomorrow. Workup for anemia is negative so far. Pt renal function did not improve significantly, bp on the lower end, and pt not making much urine, nephrology consulted. 06/02 Patient seen and examined, no acute overnight events. Patient's blood pressure has been a bit soft. Patient's hemoglobin this morning is 6.3, no evidence of melena or bright red blood stools reported however given acute drop we will transfuse 2 units. Workup so far negative gastroenterology has been consulted. CT chest abdomen and pelvis is negative for any intra-peritoneal bleed retroperitoneal bleed Nephrology following no indication for dialysis 06/03 Pt seen examined, no acute issues, remains tachcyardic, off oxygen EGD shows gastritis, likely source of dropped hb, no colonosocpy planned for now off hep given gi bleed? VQ scan today to r/o PE, Hb rise is appropriate after transfusion. pt wants to go home today, notes her son will take care of her, 06/04 Slept okay but did have interruptions. Otherwise no events overnight. Has a mild productive cough of yellow sputum, mild shortness of breath. She states she runs 90% on oxygen at home on room air. Is not on any inhalers at home. 06/05 Patient denies cough. Denies shortness of breath at rest currently. Has a mild cough white sputum. Increased oxygen need yesterday with chest x-ray showing pulmonary edema, significant fluid balance positive. Trial of 40 of IV Lasix without effect. IV's fluids stopped yesterday, oxygen able to be weaned down this morning back to 2 L. She was on room air temporarily but sats dropped. Called and discussed the patient with her daughter Brianna Tesfaye, power of body stylist GEORGINA. Given the recent finding is a poor cardiac status along with her poor response to treatment at this time felt it was important to discuss the patient's current circumstance. She is very tenuous given her severe multiorgan dysfunction including renal cardiac and pulmonary, along with her anemia and malnutrition. Per the daughter she started declining about a month ago and then about 2 weeks ago started rapidly declining. She was seen by her primary care provider and blood pressure medications were adjusted because she had lower blood pressures and some dizziness. She also had a decrease in her appetite and was not eating the food that her daughter had brought by. As well and having some falls. Regarding her alcohol intake, per her daughter she drinks 2 drinks of vodka each night, but not more. She is currently a full code but if things take a turn for the worse the daughter wants her to be home with family if it were to trend in that direction. Prognosis guarded at this point. 06/06 Believe she is at home in bed. Reported to nurse that she had a chance underskin last night. She slept well in the evening and then woke up at 10 PM and then was up for a while. She finally fell asleep again at 4 and woke it 830 this morning. She does admit to cough, productive. denies shortness of breath, is currently on room air. family discussion with daughter. pt is full code, but if declines family would like to focus on comfort care and bring home. 06/07 cough, states dyspnea last night. unable to cough up sputum per nurse. slept well last night. Daughter at bedside. Pt will transfer to home hospice in [place] 06/08- Discharging home with Home hospice as per family recommendations. Discharge diagnosis: . - Time Spent with Patient Total time spent providing and/or coordinating discharge services: Greater than 30 minutes Medical - DS: Exam - Constitutional Vitals: Vital Signs Temp Pulse Pulse Resp BP BP BP 06/08/18 07:57 97.4 F 77 16 132/79 06/08/18 04:00 99.3 F H 105 H 22 132/78 06/08/18 00:00 99.2 F H 100 H 22 124/79 06/07/18 20:00 99 F 20 128/74 06/07/18 19:50 99 F 20 128/74 06/07/18 15:38 97.5 F 16 138/68 06/07/18 12:00 97.8 F 22 134/78 Pulse Ox 06/08/18 07:57 91 06/08/18 04:00 95 06/08/18 00:00 96 06/07/18 20:00 90 06/07/18 19:50 96 06/07/18 15:38 94 06/07/18 12:00 91 Intake and Output 06/07/18 06/08/18 06/08/18 21:59 05:59 13:59 Intake Total 460 Output Total 125 100 Balance -125 360 Intake: Oral 460 Output: Urine Catheter Amount 125 100 Other: Meal Dinner applesauce w/meds Percent of Meal Consumed Refused 25% Feeding Ability Total Assistance Total Assistance Urine Appearance Sediment Urine Color Dark Yellow Dark Trisha Uretheral (Bentley) Dark Yellow Light Trisha Urine Odor Normal Strong Weight 141 lb Medical - DS: Data Labs on day of discharge: Labs from last 24 hours 06/08/18 06/08/18 06/01/18 03:50 03:50 16:35 WBC 10.6 RBC 3.42 L Hgb 10.9 L Hct 33.1 L MCV 96.8 MCH 31.7 MCHC 32.8 RDW 15.5 H Plt Count 249 MPV 8.3 Gran % 84.7 H Lymph % (Auto) 6.1 L [place] % (Auto) 9.0 Eos % (Auto) 0.2 Baso % (Auto) 0 Gran # 9.0 H Lymph # (Auto) 0.6 L [place] # (Auto) 1.0 H Eos # (Auto) 0 Baso # (Auto) 0 Sodium 137 Potassium 4.5 Chloride 103 Carbon Dioxide 18 L Anion Gap 16.0 BUN 70 H Creatinine 3.4 H GFR Calculation 12 Glucose 81 Calcium 9.4 Methylmalonic Acid 544 H Medical - DS: A/P - Patient/Caregiver Discharge Instructions Activity: resume usual activities as tolerated Diet: Regular Diet (diet per comfort) Additional Instructions: Continue diet, medications and activities as per comfort Prescriptions: Lidocaine [Lidoderm] 0 patch TOPICAL DAILY@2200 #15 patch LORazepam [Lorazepam Intensol] 2 mg PO Q4H PRN #10 ml PRN Reason: Anxiety morphine 10 mg PO Q2HP PRN #10 oral.conc PRN Reason: Anxiety - Follow up Plan Follow up with: Ricky Trevino MD [Primary Care Provider] - Disposition: Hospice - Home Prognosis: Serious Rehab Potential: Serious I certify that the patient requires SNF services: No Overall status at discharge: patient is not back to baseline Medical - DS: Qual - VTE Deep Vein Thrombosis/Pulmonary Embolism Present on Admission: No
[2018-06-08] MEDS: CALCIUM W/VIT D3 500 MG TABLET PO SCH (09:07)
[2018-06-08] MEDS: ASPIRIN 81 MG TAB.CHEW PO SCH (09:07)
[2018-06-08] MEDS: 0.9 % SODIUM CHLORIDE 10 ML SYRINGE IV SCH (09:07)
[2018-06-08] MEDS: SODIUM BICARBONATE 650 MG TABLET PO SCH (09:07)
[2018-06-08] MEDS: FOLIC ACID 1 MG TABLET PO SCH (09:08)
[2018-06-08] MEDS: LOPERAMIDE 2 MG CAPSULE PO PRN (09:08)
[2018-06-08] MEDS: METOPROLOL TARTRATE 25 MG TABLET PO SCH (09:08)
[2018-06-08] MEDS: MAGNESIUM OXIDE 400 MG TABLET PO SCH (09:08)
[2018-06-08] MEDS: LIDOCAINE PATCH TOPICAL SCH (09:09)
[2018-06-08] MEDS: NICOTINE 7 MG PATCH TOPICAL SCH (09:09)
[2018-06-08] MEDS: cefTRIAXone 1 GM VIAL IV SCH (09:09)
== END 2018-06-08 10:09 | disposition hospice, home (50) | DRG 291 ==
LOC: ED 15:17 → ICU 19:43
PROVIDERS: ADMIT Internal Medicine; ATTEND Internal Medicine